=== PATIENT | male | born 1940 | race Caucasian/White ===

== ENCOUNTER 2017-10-03 15:01 | Inpatient (IN) ==
[2017-10-03] MEDS ORDERED: 0.9 % Sodium Chloride 1,000 ML IVC ONE ×2 (15:12→16:24)
--- NOTE | 2017-10-03 15:15 | Emergency Department Note ---
Disposition Clinical Impression: Serum ammonia increased, Acute kidney injury, Hyperkalemia, Infected wound, Elevated liver enzymes, Weakness Altered mental status Qualifiers: Altered mental status type: unspecified Qualified Code(s): R41.82 - Altered mental status, unspecified Disposition: Admitted As Inpatient Condition: Fair General Adult HPI - General Chief complaint: ED Neuro Symptoms/Deficit Stated complaint: AMS,lethargic Time Seen by Provider: 10/03/17 15:05 Source: patient, family Limitations: altered mental status Nursing Notes Reviewed: Yes Vital Signs Reviewed: Yes - History of Present Illness HPI Narrative: History of present illness 1513. Past medical history of previous TIAs as well as stage IV liver cancer and a nonhealing wound on the right foot presents for evaluation of altered mental status and weakness. Patient was being brought to the hospital for a podiatry appointment when his weakness did not allow him to get in and out of the car. Patient presents to the emergency department with a low blood pressure. Patient is able to look around and interacts somewhat but is not conversational. Family states that most of his care is at the [facility]. The patient's podiatry team is here. Family does not know advanced directives. Pain Scale: 0 - Related Data Home Medications Medication Instructions Recorded Confirmed Colchicine [Colcrys] 0.6 mg PO QID 05/23/16 10/03/17 Lisinopril 10 mg PO DAILY 05/23/16 10/03/17 Aspirin Enteric Coated [Aspirin EC] 81 mg PO DAILY 04/25/17 10/03/17 Baclofen [Lioresal] 5 mg PO TID 04/25/17 10/03/17 Carboxymethyl/Gly/Poly80/Pf 1 each OP DAILY 04/25/17 10/03/17 [Refresh Optive Advanced Drops] Cholecalciferol (D-3) [Vitamin D] 1,000 unit PO DAILY 04/25/17 10/03/17 Docusate Sodium 300 mg PO HS 04/25/17 10/03/17 metOLazone [Zaroxolyn] 5 mg PO MOTH 04/25/17 10/03/17 Collagenase Oint [Santyl] 1 appl TP BID 10/03/17 10/03/17 Furosemide [Lasix] 40 mg PO QID 10/03/17 10/03/17 Gabapentin [Neurontin] 600 mg PO BID 10/03/17 10/03/17 Insulin ASPART [NovoLOG] 60 unit SQ QAM 10/03/17 10/03/17 Insulin ASPART [NovoLOG] 100 unit SQ QPM 10/03/17 10/03/17 Insulin Glargine [Lantus] 118 unit SQ BID 10/03/17 10/03/17 Metoprolol [Lopressor] 12.5 mg PO BID 10/03/17 10/03/17 Multivit-Min/FA/Lycopen/Lutein [A 1 tab PO DAILY 10/03/17 10/03/17 Thru Z Select Multivit Tab] Nitroglycerin [Nitrostat] 0.4 mg SL Q5M PRN 10/03/17 10/03/17 Rosuvastatin Calcium [Crestor] 10 mg PO DAILY 10/03/17 10/03/17 Triamcinolone Acet 0.1% CRM 1 appl TP BID PRN 10/03/17 10/03/17 [Kenalog] Allergies Allergy/AdvReac Type Severity Reaction Status Date / Time shellfish derived Allergy Difficulty Verified 05/23/16 10:54 Breathing acetaminophen [From Vicodin] AdvReac Confusion Verified 05/23/16 10:54 hydrocodone [From Vicodin] AdvReac Confusion Verified 05/23/16 10:54 ibuprofen [From Motrin] AdvReac Gastrointestinal Verified 05/23/16 10:54 Upset tramadol AdvReac Confusion Verified 05/23/16 10:54 Limitations: ROS unobtainable due to patients medical condition Gastrointestinal: Reports: vomiting (x 2 episode). Denies: abdominal pain, nausea Genitourinary: Reports: other (recent treatment for UTI) Integumentary: Reports: other (infected heal ulcer) Neurological: Reports: weakness Past Medical History - Past Medical History Medical history: Reports: cancer, coronary artery disease, diabetes, hyperlipidemia, hypertension, other Surgical history: Reports: angioplasty/stent Psychiatric history: Reports: no psych history - Social History Smoking Status: Former smoker Smokeless Tobacco Status: No Alcohol use: Reports: none Drug use: Reports: none Physical Exam - General Limitations: altered mental status General appearance: alert - Head Head exam: atraumatic, normocephalic - Eye Eye exam: Present: normal appearance, PERRL - ENT ENT exam: normal exam, normal oropharynx, mucous membranes dry - Neck Neck exam: Present: normal inspection, full ROM - Chest Chest inspection: Present: normal inspection, symmetric chest wall rise. Absent : tenderness - Respiratory Respiratory exam: Present: normal lung sounds bilaterally. Absent: respiratory distress, wheezes - Cardiovascular Cardiovascular exam: Present: normal rhythm, tachycardia - Abdominal Exam Abdominal exam: Present: soft, Non-Tender - Extremities Exam Extremities exam: Present: other (Right posterior aspect of the heel has an ulcer with mild purulent material) - Back Exam Back exam: Present: normal inspection. Absent: CVA tenderness (R), CVA tenderness (L) - Neurological Exam Neurological exam: Present: alert. Absent: oriented X3 (oriented to name and hospital) - Psychiatric Psychiatric exam: Present: flat affect - Skin Skin exam: Present: other (extremity wound) Course - Reevaluation(s) Reevaluation #1: Patient with elevated white count and recent treatment for UTI. Concern for right heel wound. Patient's ammonia is also elevated. Patient has acute renal failure. Mild Hyperkalemia. Mild alterations to liver enzymes. Chest x-ray negative. CT head negative. Patient is a hospice patient that does not have advanced directives. wants continued treatment. Antibiotics given for Klebsiella wound infection that is sensitive to everything but ampicillin. - Consultations Consultation #1: Discussed with Dr. Higginbotham. Pt accepted. Vital Signs Temperature 97.2 F L 10/03/17 15:07 Pulse Rate 83 10/03/17 15:07 Respiratory Rate 14 10/03/17 15:07 Blood Pressure 81/48 10/03/17 15:07 O2 Sat by Pulse Oximetry 93 10/03/17 15:07 Temperature 97.2 F L 10/03/17 15:07 Pulse Rate 74 10/03/17 16:43 Respiratory Rate 16 10/03/17 16:43 Blood Pressure 95/57 10/03/17 16:43 O2 Sat by Pulse Oximetry 98 10/03/17 16:43 Oxygen Delivery Oxygen Delivery Room Air Medical Decision Making - Lab Data Result diagrams: 10/03/17 15:27 10/03/17 15:27 Lab Results 10/03/17 10/03/17 10/03/17 Range/Units 15:10 15:27 15:27 WBC 14.2 H (4.3-11.1) K/mcL RBC 4.16 L (4.19-5.50) M/mcL Hgb 13.1 (12.9-16.9) g/dL Hct 39.2 (37.5-50.1) % MCV 94.2 (83.0-100.0) fL MCH 31.5 (28.0-33.3) pg MCHC 33.4 (31.6-35.5) g/dL RDW 15.0 H (11.5-14.5) % Plt Count 226 (140-400) K/mcL MPV 10.7 (9.4-12.4) fL Immature Gran % 0.5 (0-4) % Seg Neutrophils % 82.7 % Lymphocytes % 11.2 % Monocytes % 4.6 % Eosinophils % 0.5 % Basophils % 0.5 % Neutrophils # 11.7 H (1.6-8.9) K/mcL Lymphocytes # 1.6 (0.6-4.6) K/mcL Monocytes # 0.7 (0.0-1.3) K/mcL Eosinophils # 0.1 (0.0-0.6) K/mcL Basophils # 0.1 (0.0-0.2) K/mcL ESR (0-10) mm/hr PT 12.6 H (9.4-12.1) Seconds INR 1.2 Sodium (136-145) mEq/L Potassium (3.5-4.5) mEq/L Chloride (98-109) mEq/L Carbon Dioxide (19-29) mEq/L BUN (8-26) mg/dL Creatinine (0.72-1.25) mg/dL Est GFR ( Amer) (> 60) Est GFR (Non-Af Amer) (> 60) BUN/Creatinine Ratio (6-26) Glucose (70-99) mg/dL POC Glucose 203 H (58-89) Calculated Osmolality (280-300) Calcium (8.6-10.8) mg/dL Total Bilirubin (0.2-1.2) mg/dL Direct Bilirubin (0.0-0.5) mg/dL Indirect Bilirubin (0.0-1.2) mg/dL AST (5-34) Units/L ALT (0-55) Units/L Alkaline Phosphatase (38-126) Units/L Ammonia (18-72) mcmol/L Troponin I (0-0.03) ng/mL C-Reactive Protein (Less than 5) mg/L Serum Total Protein (6.0-8.3) g/dL Albumin (3.5-5.0) g/dL Globulin (2.4-3.5) g/dL Albumin/Globulin Ratio (1.1-2.2) TSH (0.350-4.840) mcIU/mL Urine Color (Yellow) Urine Clarity (Clear) Urine pH (5.0-8.0) pH Units Ur Specific Rachel (1.010-1.025) Urine Protein (Neg-Trace) mg/dL Urine Glucose (UA) (Normal) mg/dL Urine Ketones (Negative) mg/dL Urine Blood (Negative) Urine Nitrite (Negative) Urine Bilirubin (Negative) Urine Urobilinogen (Normal) mg/dL Ur Leukocyte Esterase (Negative) Urine Microscopic RBC (0-3) per hpf Urine Microscopic WBC (0-3) per hpf Ur Squamous Epith Cells (None-Few) per lpf Urine Bacteria (None-Few) per hpf Hyaline Casts (None-Few) per lpf Ur Culture Indicated? (NO) Ethyl Alcohol (0-10) mg/dL 10/03/17 10/03/17 10/03/17 Range/Units 15:27 15:27 15:27 WBC (4.3-11.1) K/mcL RBC (4.19-5.50) M/mcL Hgb (12.9-16.9) g/dL Hct (37.5-50.1) % MCV (83.0-100.0) fL MCH (28.0-33.3) pg MCHC (31.6-35.5) g/dL RDW (11.5-14.5) % Plt Count (140-400) K/mcL MPV (9.4-12.4) fL Immature Gran % (0-4) % Seg Neutrophils % % Lymphocytes % % Monocytes % % Eosinophils % % Basophils % % Neutrophils # (1.6-8.9) K/mcL Lymphocytes # (0.6-4.6) K/mcL Monocytes # (0.0-1.3) K/mcL Eosinophils # (0.0-0.6) K/mcL Basophils # (0.0-0.2) K/mcL ESR (0-10) mm/hr PT (9.4-12.1) Seconds INR Sodium 136 (136-145) mEq/L Potassium 5.1 H (3.5-4.5) mEq/L Chloride 100 (98-109) mEq/L Carbon Dioxide 20 (19-29) mEq/L BUN 59 H (8-26) mg/dL Creatinine 3.72 H (0.72-1.25) mg/dL Est GFR ( Amer) 19 L (> 60) Est GFR (Non-Af Amer) 16 L (> 60) BUN/Creatinine Ratio 16 (6-26) Glucose 154 H (70-99) mg/dL POC Glucose (58-89) Calculated Osmolality 302 H (280-300) Calcium 10.3 (8.6-10.8) mg/dL Total Bilirubin 1.4 H (0.2-1.2) mg/dL Direct Bilirubin 0.7 H (0.0-0.5) mg/dL Indirect Bilirubin 0.7 (0.0-1.2) mg/dL AST 74 H (5-34) Units/L ALT 38 (0-55) Units/L Alkaline Phosphatase 138 H (38-126) Units/L Ammonia 111 H (18-72) mcmol/L Troponin I 0.03 (0-0.03) ng/mL C-Reactive Protein 21 H (Less than 5) mg/L Serum Total Protein 8.4 H (6.0-8.3) g/dL Albumin 3.3 L (3.5-5.0) g/dL Globulin 5.1 H (2.4-3.5) g/dL Albumin/Globulin Ratio 0.6 L (1.1-2.2) TSH 2.735 (0.350-4.840) mcIU/mL Urine Color (Yellow) Urine Clarity (Clear) Urine pH (5.0-8.0) pH Units Ur Specific Rachel (1.010-1.025) Urine Protein (Neg-Trace) mg/dL Urine Glucose (UA) (Normal) mg/dL Urine Ketones (Negative) mg/dL Urine Blood (Negative) Urine Nitrite (Negative) Urine Bilirubin (Negative) Urine Urobilinogen (Normal) mg/dL Ur Leukocyte Esterase (Negative) Urine Microscopic RBC (0-3) per hpf Urine Microscopic WBC (0-3) per hpf Ur Squamous Epith Cells (None-Few) per lpf Urine Bacteria (None-Few) per hpf Hyaline Casts (None-Few) per lpf Ur Culture Indicated? (NO) Ethyl Alcohol < 10 (0-10) mg/dL 10/03/17 10/03/17 Range/Units 15:27 15:55 WBC (4.3-11.1) K/mcL RBC (4.19-5.50) M/mcL Hgb (12.9-16.9) g/dL Hct (37.5-50.1) % MCV (83.0-100.0) fL MCH (28.0-33.3) pg MCHC (31.6-35.5) g/dL RDW (11.5-14.5) % Plt Count (140-400) K/mcL MPV (9.4-12.4) fL Immature Gran % (0-4) % Seg Neutrophils % % Lymphocytes % % Monocytes % % Eosinophils % % Basophils % % Neutrophils # (1.6-8.9) K/mcL Lymphocytes # (0.6-4.6) K/mcL Monocytes # (0.0-1.3) K/mcL Eosinophils # (0.0-0.6) K/mcL Basophils # (0.0-0.2) K/mcL ESR 74 H (0-10) mm/hr PT (9.4-12.1) Seconds INR Sodium (136-145) mEq/L Potassium (3.5-4.5) mEq/L Chloride (98-109) mEq/L Carbon Dioxide (19-29) mEq/L BUN (8-26) mg/dL Creatinine (0.72-1.25) mg/dL Est GFR ( Amer) (> 60) Est GFR (Non-Af Amer) (> 60) BUN/Creatinine Ratio (6-26) Glucose (70-99) mg/dL POC Glucose (58-89) Calculated Osmolality (280-300) Calcium (8.6-10.8) mg/dL Total Bilirubin (0.2-1.2) mg/dL Direct Bilirubin (0.0-0.5) mg/dL Indirect Bilirubin (0.0-1.2) mg/dL AST (5-34) Units/L ALT (0-55) Units/L Alkaline Phosphatase (38-126) Units/L Ammonia (18-72) mcmol/L Troponin I (0-0.03) ng/mL C-Reactive Protein (Less than 5) mg/L Serum Total Protein (6.0-8.3) g/dL Albumin (3.5-5.0) g/dL Globulin (2.4-3.5) g/dL Albumin/Globulin Ratio (1.1-2.2) TSH (0.350-4.840) mcIU/mL Urine Color Yellow (Yellow) Urine Clarity Clear (Clear) Urine pH 6.0 (5.0-8.0) pH Units Ur Specific Rachel 1.014 (1.010-1.025) Urine Protein Negative (Neg-Trace) mg/dL Urine Glucose (UA) 250 H (Normal) mg/dL Urine Ketones Negative (Negative) mg/dL Urine Blood Small H (Negative) Urine Nitrite Negative (Negative) Urine Bilirubin Negative (Negative) Urine Urobilinogen Normal (Normal) mg/dL Ur Leukocyte Esterase Negative (Negative) Urine Microscopic RBC 0-3 (0-3) per hpf Urine Microscopic WBC 0-3 (0-3) per hpf Ur Squamous Epith Cells Many H (None-Few) per lpf Urine Bacteria None Seen (None-Few) per hpf Hyaline Casts None Seen (None-Few) per lpf Ur Culture Indicated? NO (NO) Ethyl Alcohol (0-10) mg/dL Attestation Statement - Attestation Attestation: I examined this patient and my medical decision-making was reviewed with the Resident Physician. I agree with the documented findings, disposition and treatment plan as described except to the extent set forth below. Patient ED with weakness and altered mental status. states he became altered this afternoon. They are trying to get into the car to go to his wound care appointment that he was too weak and they had a lowered to the floor. Patient has stage IV liver cancer and is currently not undergoing any treatment for this. He sees the wound center for a wound on his heel. He has been vomiting a couple times a day. No fevers. On examination he is awake alert. Nonverbal. Looking around. Soft abdomen. Noted be hypotensive in the 80s. Plan. Sepsis workup. CT head. We will check ammonia level. Patient with elevated ammonia. Wound on heel. In all status improved. Blood pressure improved. 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 Admitted to medicine.
[2017-10-03 15:35] LABS: Basophils # 0.1 K/mcL (0.0-0.2); Basophils % 0.5 %; Eosinophils # 0.1 K/mcL (0.0-0.6); Eosinophils % 0.5 %; Hematocrit 39.2 % (37.5-50.1); Hemoglobin 13.1 g/dL (12.9-16.9); Immature Granulocytes % 0.5 % (0-4); Lymphocytes # 1.6 K/mcL (0.6-4.6); Lymphocytes % 11.2 %; Mean Corpuscular HGB Conc 33.4 g/dL (31.6-35.5); Mean Corpuscular Hemoglobin 31.5 pg (28.0-33.3); Mean Corpuscular Volume 94.2 fL (83.0-100.0); Mean Platelet Volume 10.7 fL (9.4-12.4); Monocytes # 0.7 K/mcL (0.0-1.3); Monocytes % 4.6 %; Neutrophils # 11.7 K/mcL (1.6-8.9); Platelet Count 226 K/mcL (140-400); Red Blood Count 4.16 M/mcL (4.19-5.50); Segmented Neutrophils % 82.7 %
[2017-10-03 15:42] LABS: INR 1.2; Prothrombin Time 12.6 Seconds (9.4-12.1)
[2017-10-03 15:52] LABS: Alanine Aminotransferase 38 Units/L (0-55); Albumin 3.3 g/dL (3.5-5.0); Albumin/Globulin Ratio 0.6 (1.1-2.2); Alkaline Phosphatase 138 Units/L (38-126); Aspartate Amino Transferase 74 Units/L (5-34); BUN/Creatinine Ratio 16 (6-26); Bilirubin,Direct 0.7 mg/dL (0.0-0.5); Bilirubin,Indirect 0.7 mg/dL (0.0-1.2); Bilirubin,Total 1.4 mg/dL (0.2-1.2); Blood Urea Nitrogen 59 mg/dL (8-26); Calcium 10.3 mg/dL (8.6-10.8); Carbon Dioxide 20 mEq/L (19-29); Chloride 100 mEq/L (98-109); Globulin 5.1 g/dL (2.4-3.5); Glucose 154 mg/dL (70-99); Osmolality,Calculated 302 (280-300); Potassium 5.1 mEq/L (3.5-4.5); Sodium 136 mEq/L (136-145); Total Protein 8.4 g/dL (6.0-8.3); eGFR For African Americans 19 (> 60); eGFR For Non-African Americans 16 (> 60)
[2017-10-03 15:53] LABS: Ethanol < 10 mg/dL (0-10)
[2017-10-03 16:05] LABS: Bilirubin,Urine Negative (Negative); Blood,Urine Small (Negative); Clarity,Urine Clear (Clear); Color,Urine Yellow (Yellow); Glucose,Urine (UA) 250 mg/dL (Normal); Ketones,Urine Negative (Negative); Leukocyte Esterase,Urine Negative (Negative); Nitrite,Urine Negative (Negative); Protein,Urine Negative (Neg-Trace); Specific Gravity,Urine 1.014 (1.010-1.025); Urobilinogen,Urine Normal (Normal)
[2017-10-03 16:13] LABS: Thyroid Stimulating Hormone 2.735 mcIU/mL (0.350-4.840)
[2017-10-03 16:16] LABS: Bacteria,Urine None Seen per hpf (None-Few); Hyaline Casts,Urine None Seen per lpf (None-Few); RBC,Urine 0-3 per hpf (0-3); Squamous Epithelial Cell,Urine Many per lpf (None-Few); WBC,Urine 0-3 per hpf (0-3)
[2017-10-03 16:26] LABS: C-Reactive Protein 21 mg/L (Less than 5)
[2017-10-03] MEDS ORDERED: Lactulose Oral Soln 20 GM/30 ML UDC PO ONE (16:51)
[2017-10-03] MEDS ORDERED: cefTRIAXone 1,000 MG in Water for inj. (sterile) 10 ML IVP ONE (18:00)
[2017-10-03] MEDS ORDERED: cefTRIAXone 1,000 MG in Water for inj. (sterile) 20 ML IVP ONE (18:00)
[2017-10-03] MEDS ORDERED: Naloxone 0.4 MG/ML INJ IVP PRN (20:05)
[2017-10-03] MEDS ORDERED: Ondansetron 4 MG/2 ML VIAL IVP PRN (20:05)
--- NOTE | 2017-10-03 20:56 | Internal Med History&Physical ---
<Sanjeev Cassidy - Last Filed: 10/03/17 20:52> Date of Encounter: 10/03/17 Time of Encounter: 20:52 Assessment and Plan (1) Altered mental status Current visit: Yes Status: Acute Continues to have altered mental status. Suspect this is due to elevation in ammonia of 111, patient has history of stage IV hepatic carcinoma. He was given 1 dose of lactulose in the ED and family reports mental status slightly improved briefly. However upon my assessment is continuing to have decreased LOC. 20 g lactulose rectal now; improvement in ammonia should improve patient's mental status. NPO, hold all oral medication while patient is lethargic, restart when MS improves Qualifiers: Altered mental status type: unspecified Qualified Code(s): R41.82 - Altered mental status, unspecified (2) Weakness Current visit: Yes Status: Acute Ongoing weakness, has not improved since admission this afternoon. has noticed a decline in functional capacity over the last several week, and he is much worse today. At baseline he is ambulatory, alert and able to somewhat participate in activities. He is not able to do so at this time. He has stage IV liver cancer, an elevated ammonia of 111, and a possible infection in his Rt foot that are contributing to his current clinical picture. Consult PT/OT,for further evaluation of functional capacity. He is currently getting hospice care at home. (3) TAY (acute kidney injury) Current visit: Yes Status: Acute Acute kidney injury secondary to dehydration. Reporting nausea and vomiting intermittently since Sunday. This decreased oral intake. No prior history of kidney disease. Start D5 0.45 at 125 mL per hour. Recheck serum creatinine in the morning (4) Dehydration Current visit: Yes Status: Acute Nausea and vomiting intermittently since Sunday. Unable to tolerate oral intake , decreased appetite. Now has TAY, start patient on D5 0.45 and 125 mL per hour. Recheck metabolic panel in the morning (5) Diabetic foot ulcer Current visit: Yes Status: Acute Chronic right diabetic foot ulcer. Was treated in May for Klebsiella infection of right foot. Will start patient on cefepime 1 g BID. Consult podiatry for further recommendations Qualifiers: Diabetic foot ulcer location: heel Diabetes mellitus type: type 2 Non- pressure ulcer stage: with fat layer exposed Qualified Code(s): E11.621 - Type 2 diabetes mellitus with foot ulcer; L97.402 - Non-pressure chronic ulcer of unspecified heel and midfoot with fat layer exposed (6) Serum ammonia increased Current visit: Yes Status: Acute (7) Hyperkalemia Current visit: Yes Status: Acute Also has hyperkalemia with potassium of 5.1. I suspect this is due to TAY and dehydration. Recheck metabolic panel in the am. (8) Elevated liver enzymes Current visit: Yes Status: Acute recheck LFT's in the morning (9) Diabetes Current visit: Yes Status: Acute LSSIC with AC/HS accuchecks. NPO. Qualifiers: Diabetes mellitus type: type 2 Diabetes mellitus complication status: with kidney complications Diabetes mellitus personal trainer insulin use: with senior living use Chronic kidney disease stage: unspecified stage Qualified Code(s): E11.22 - Type 2 diabetes mellitus with diabetic chronic kidney disease; Z79.4 - solar sales advisor (current) use of insulin; Z79.4 - solar sales advisor (current) use of insulin; Z79.4 - [facility] (current) use of insulin; Z79.4 - [facility] (current) use of insulin (10) Hepatocellular carcinoma Current visit: Yes Status: Acute Diagnosis approximately 18 months ago. Does not wish to participate in chemotherapy. Has not had follow-up evaluation since original diagnosis. (11) DVT prophylaxis Current visit: Yes Status: Acute Lovenox 40 mg subcutaneous daily Internal Medicine - H&P: HPI Chief complaint: AMS, WEAKNESS Admitted From: Home Plans for Post Hospital Care: Home History of present illness: Mr. Vieyra is a 77 year old male with PMH of multiple TIAs, stage IV liver cancer, CAD, DM, HLD and HTN. Patient reports he was diagnosed with stage IV liver cancer approximately 18 months ago, he has not wanting to take chemotherapy and is not had any additional follow-up since diagnosis. [facility] He presents today with altered mental status and weakness. Patient has a decreased level of consciousness at this time I am unable to obtain review of systems and/or history of present illness from him. Family is at bedside all information obtained from chart report and family. His reports that he began having alterations in mental status off and on over the last month. She reports that today it is much worse. She states that while out at a podiatry appointment today he was unable to get out of the car to make the appointment due to weakness. Also at this time is becoming increasingly confused. She also mentions that he has been having n/v intermittently since Sunday. She brought the patient to the emergency department further workup and evaluation. On the EGD is found to be hypotensive, had a decreased level of consciousness and while awake was confused. Workup revealed leukocytosis, acute kidney injury, and an ammonia of 111. CT of the head was negative for acute intracranial or melena, chest x-ray negative for cardiopulmonary disease. He is being admitted for further workup and evaluation. Past Med Surg Social Fam HX - Past Medical History Medical history: cancer, coronary artery disease, diabetes, hyperlipidemia, hypertension, other Psychiatric history: no psych history - Past Surgical History Surgical History: angioplasty/stent - Social History Smoking Status: Former smoker Smokeless Tobacco Status: No Alcohol use: none Drug use: none - Family History Father Living Status: Hx Family Cardiac Disorders: Yes Internal Medicine - H&P: Meds Colchicine [Colcrys] 0.6 mg PO QID 05/23/16 [History] Lisinopril 10 mg PO DAILY 05/23/16 [History] Aspirin Enteric Coated [Aspirin EC] 81 mg PO DAILY 04/25/17 [History] Baclofen [Lioresal] 5 mg PO TID 04/25/17 [History] Carboxymethyl/Gly/Poly80/Pf [Refresh Optive Advanced Drops] 1 each OP DAILY 03/07 [History] Cholecalciferol (D-3) [Vitamin D] 1,000 unit PO DAILY 04/25/17 [History] Docusate Sodium 300 mg PO HS 04/25/17 [History] metOLazone [Zaroxolyn] 5 mg PO MOTH 04/25/17 [History] Collagenase Oint [Santyl] 1 appl TP BID 10/03/17 [History] Furosemide [Lasix] 40 mg PO QID 10/03/17 [History] Gabapentin [Neurontin] 600 mg PO BID 10/03/17 [History] Insulin ASPART [NovoLOG] 60 unit SQ QAM 10/03/17 [History] Insulin ASPART [NovoLOG] 100 unit SQ QPM 10/03/17 [History] Insulin Glargine [Lantus] 118 unit SQ BID 10/03/17 [History] Metoprolol [Lopressor] 12.5 mg PO BID 10/03/17 [History] Multivit-Min/FA/Lycopen/Lutein [A Thru Z Select Multivit Tab] 1 tab PO DAILY [History] Nitroglycerin [Nitrostat] 0.4 mg SL Q5M PRN 10/03/17 [History] Oxycodone HCl 10 mg PO Q6H PRN 10/03/17 [History] Rosuvastatin Calcium [Crestor] 10 mg PO DAILY 10/03/17 [History] Triamcinolone Acet 0.1% CRM [Kenalog] 1 appl TP BID PRN 10/03/17 [History] 3 Allergy/AdvReac Type Severity Reaction Status Date / Time morphine Allergy Difficulty Verified 10/03/17 22:12 Breathing shellfish derived Allergy Difficulty Verified 05/23/16 10:54 Breathing acetaminophen [From Vicodin] AdvReac Confusion Verified 05/23/16 10:54 hydrocodone [From Vicodin] AdvReac Confusion Verified 05/23/16 10:54 ibuprofen [From Motrin] AdvReac Gastrointestinal Verified 05/23/16 10:54 Upset tramadol AdvReac Confusion Verified 05/23/16 10:54 All Systems PM: A 10-system review of systems was performed and is negative for pertinent findings except as documented above in the HPI. - Constitutional Constitutional: anorexia, fatigue, lethargy, weakness, no chills, no fever(s) - Cardiovascular Cardiovascular ROS IM: no chest pain, no diaphoresis, no dyspnea, no lightheadedness, no palpitations, no syncope - Respiratory Respiratory: no cough, no dyspnea, no wheezing, no excessive phlegm production - Gastrointestinal Gastrointestinal: early satiety, nausea, vomiting, no abdominal pain - Musculoskeletal Musculoskeletal ROS IM: muscle weakness - Integumentary Integumentary IM: skin ulcer (Rt foot) - Neurological Neurological ROS: abnormal speech, behavioral changes, confusion, tremor(s), weakness - Constitutional Vitals: Temp Pulse Resp BP Pulse Ox 98.3 F 78 16 134/81 95 10/03/17 18:58 10/03/17 18:58 10/03/17 18:58 10/03/17 18:58 10/03/17 18:58 General appearance: Present: A&O X 1, obese Exam: Ill appearing, lethargic male. - Head Head exam: Present: atraumatic, normocephalic - Neck Neck exam general surgery: Present: supple, trachea midline. Absent: lymphadenopathy - Respiratory Respiratory exam: Present: CTAB. Absent: accessory muscle use, rales, rhonchi, wheezes - Cardiovascular Cardiovascular exam: Present: RRR, +S1, +S2. Absent: diastolic murmur, gallop, rubs, systolic murmur - GI/Abdominal GI/Abdominal exam: Present: normal bowel sounds, soft, no peritoneal signs. Absent: distended, tenderness - Extremities Exam Extremities exam: Present: warm, radial pulses palpable and symmetrical. Absent : calf tenderness, cyanotic, pedal edema - Expanded Lower Extremities Exam Foot/Toe exam: Present: erythema, swelling 1 - Stage III pressure ulcer Rt foot Internal Med - H&P Results - Labs CBC & Chem 7: 10/03/17 15:27 10/03/17 15:27 - Diagnostic Studies Chest x-ray Status: image reviewed by me Additional comments: no acute cardiopulmonary process CT scan - head Status: image reviewed by me Additional comments: no acute intracranial abnormalities <Phill Granado - Last Filed: 10/04/17 04:59> Date of Encounter: 10/04/17 Internal Medicine - H&P: HPI History of present illness: Mr. Vieyra is a 77 year old male All Systems PM: A 10-system review of systems was performed and is negative for pertinent findings except as documented above in the HPI. - Constitutional Vitals: Temp Pulse Resp BP Pulse Ox 97.4 F L 67 16 136/79 97 10/04/17 03:29 10/04/17 03:29 10/04/17 03:29 10/04/17 03:29 10/04/17 03:29 Internal Med - H&P Results - Labs CBC & Chem 7: 10/03/17 15:27 10/03/17 15:27 - Attending Attestation I have personally performed a face to face evaluation on this patient. I have reviewed and agree with the care plan provided by NED Cassidy. History and Exam by me shows: Mr. Vieyra is a 77 year old male with PMH of multiple TIAs, stage IV liver cancer, CAD, DM, HLD and HTN who is under home hospice care for his liver cancer was brought into ER by family stating that he became more lethargic and obtunded today. Gen : Pt is so somnolent.. responding to verbal stimuli only. not following any commands Chest: Diminished BS b/l Heart : S1 S2 + RRR Ext; Stage 3 pressure ulcer over Rt heel a/p 1. Acute hepatic encephalopathy 2. Stage IV Hepato cellular cancer started him on PA Lactulose now Strict NPO until pt becomes fully awake 3. Chronic non healing Rt heel ulcer As per the family supposedly he has to go for wound debridement by Dr. Wiggins so will consult grails web application developer in [place] Also placed him on empirical abx Family still want to continue home hospice care..
[2017-10-03] MEDS ORDERED: *HR* Morphine 2 MG/ML SYRINGE IVP PRN (21:08)
[2017-10-03] MEDS ORDERED: Dextrose Gel 15 GM PO PRN ×2 (21:28)
[2017-10-03] MEDS ORDERED: D5% in Water 1,000 ML IVC PRN (21:28)
[2017-10-03] MEDS ORDERED: *HR* Dextrose 50 % in Water (Syg) 50 ML SYRINGE IVP PRN (21:28)
[2017-10-03] MEDS ORDERED: Insulin LISPRO 300 UNITS/3 ML VIAL SQ SCH (21:30)
[2017-10-03] MEDS: D5% in 0.45% NACL 1,000 ML IVC SCH (21:38)
[2017-10-04] MEDS ORDERED: Cefepime HCl 1,000 MG in Water for inj. (sterile) 10 ML IVP SCH (06:00)
[2017-10-04] MEDS ORDERED: *HR* Enoxaparin 40 MG/0.4 ML SYRINGE SQ SCH (06:00)
[2017-10-04 06:49] LABS: INR 1.1; Prothrombin Time 12.2 Seconds (9.4-12.1)
[2017-10-04 06:54] LABS: Albumin 2.8 g/dL (3.5-5.0); Albumin/Globulin Ratio 0.6 (1.1-2.2); Calcium 9.2 mg/dL (8.6-10.8); Globulin 4.4 g/dL (2.4-3.5); Magnesium 2.2 mg/dL (1.6-2.6); Total Protein 7.2 g/dL (6.0-8.3)
[2017-10-04 06:59] LABS: Basophils # 0.1 K/mcL (0.0-0.2); Basophils % 0.7 %; Eosinophils # 0.3 K/mcL (0.0-0.6); Eosinophils % 2.6 %; Hematocrit 36.4 % (37.5-50.1); Hemoglobin 12.5 g/dL (12.9-16.9); Immature Granulocytes % 0.8 % (0-4); Lymphocytes # 2.8 K/mcL (0.6-4.6); Lymphocytes % 28.3 %; Mean Corpuscular HGB Conc 34.3 g/dL (31.6-35.5); Mean Corpuscular Hemoglobin 32.2 pg (28.0-33.3); Mean Corpuscular Volume 93.8 fL (83.0-100.0); Mean Platelet Volume 10.6 fL (9.4-12.4); Monocytes # 0.7 K/mcL (0.0-1.3); Monocytes % 7.1 %; Neutrophils # 5.9 K/mcL (1.6-8.9); Platelet Count 136 K/mcL (140-400); Red Blood Count 3.88 M/mcL (4.19-5.50); Red Cell Distribution Width 15.2 % (11.5-14.5); Segmented Neutrophils % 60.5 %
[2017-10-04] MEDS: Insulin LISPRO 300 UNITS/3 ML VIAL SQ SCH ×3 (07:52→16:42)
--- NOTE | 2017-10-04 11:56 | Discharge Summary ---
Date of Encounter: 10/04/17 Time of Encounter: 11:39 - Discharge Diagnosis (1) Acute hepatic encephalopathy Priority: Primary Status: Acute (2) TAY (acute kidney injury) Priority: Secondary Status: Acute (3) Dehydration Priority: Secondary Status: Acute (4) Diabetes Priority: Secondary Status: Acute Qualifiers: Diabetes mellitus type: type 2 Diabetes mellitus complication status: with kidney complications Diabetes mellitus complication detail: with chronic kidney disease Diabetes mellitus [facility] insulin use: with [facility] use Chronic kidney disease stage: stage 3 (moderate) Qualified Code(s): E11.22 - Type 2 diabetes mellitus with diabetic chronic kidney disease; N18.3 - Chronic kidney disease, stage 3 (moderate); N18.3 - Chronic kidney disease, stage 3 ( moderate); Z79.4 - nursing home (current) use of insulin; Z79.4 - nursing home ( current) use of insulin; Z79.4 - nursing home (current) use of insulin; Z79.4 - nursing home (current) use of insulin (5) Diabetic foot ulcer Priority: Secondary Status: Acute Qualifiers: Diabetic foot ulcer location: heel Diabetes mellitus type: type 2 Laterality: right Non-pressure ulcer stage: with fat layer exposed Qualified Code(s): E11.621 - Type 2 diabetes mellitus with foot ulcer; L97.412 - Non-pressure chronic ulcer of right heel and midfoot with fat layer exposed; L97.412 - Non-pressure chronic ulcer of right heel and midfoot with fat layer exposed; L97.412 - Non-pressure chronic ulcer of right heel and midfoot with fat layer exposed; L97.412 - Non-pressure chronic ulcer of right heel and midfoot with fat layer exposed (6) Hepatocellular carcinoma Priority: Secondary Status: Acute (7) Weakness Priority: Secondary Status: Acute - Discharge Medications Prescriptions: Collagenase Oint [Santyl] 30 appl TP BID #1 tube Lactulose 20 gm PO TID #600 mls Home Medications: Colchicine [Colcrys] 0.6 mg PO QID 05/23/16 [History] Aspirin Enteric Coated [Aspirin EC] 81 mg PO DAILY 04/25/17 [History] Baclofen [Lioresal] 5 mg PO TID 04/25/17 [History] Carboxymethyl/Gly/Poly80/Pf [Refresh Optive Advanced Drops] 1 each OP DAILY 03/07 [History] Cholecalciferol (D-3) [Vitamin D] 1,000 unit PO DAILY 04/25/17 [History] Docusate Sodium 300 mg PO HS 04/25/17 [History] Collagenase Oint [Santyl] 1 appl TP BID 10/03/17 [History] Gabapentin [Neurontin] 600 mg PO BID 10/03/17 [History] Insulin ASPART [NovoLOG] 60 unit SQ QAM 10/03/17 [History] Insulin ASPART [NovoLOG] 100 unit SQ QPM 10/03/17 [History] Insulin Glargine [Lantus] 118 unit SQ BID 10/03/17 [History] Metoprolol [Lopressor] 12.5 mg PO BID 10/03/17 [History] Multivit-Min/FA/Lycopen/Lutein [A Thru Z Select Multivit Tab] 1 tab PO DAILY [History] Nitroglycerin [Nitrostat] 0.4 mg SL Q5M PRN 10/03/17 [History] Oxycodone HCl 10 mg PO Q6H PRN 10/03/17 [History] Rosuvastatin Calcium [Crestor] 10 mg PO DAILY 10/03/17 [History] Triamcinolone Acet 0.1% CRM [Kenalog] 1 appl TP BID PRN 10/03/17 [History] Collagenase Oint [Santyl] 30 appl TP BID #1 tube 10/04/17 [Rx] Lactulose 20 gm PO TID #600 mls 10/04/17 [Rx] Allergies/Adverse Reactions: 3 Allergy/AdvReac Type Severity Reaction Status Date / Time morphine Allergy Difficulty Verified 10/03/17 22:12 Breathing shellfish derived Allergy Difficulty Verified 05/23/16 10:54 Breathing acetaminophen [From Vicodin] AdvReac Confusion Verified 05/23/16 10:54 hydrocodone [From Vicodin] AdvReac Confusion Verified 05/23/16 10:54 ibuprofen [From Motrin] AdvReac Gastrointestinal Verified 05/23/16 10:54 Upset tramadol AdvReac Confusion Verified 05/23/16 10:54 Date of admission: 10/03/17 20:05 [facility] care physician: [facility] Consults: 10/03/17 20:47 Consult to Podiatry [CONS] Routine Consulting Provider: Podiatry [facility] Reason for Consult: Rt foot ulcer; h/o klebsiella in wound Call Completed: No Discharging clinician: Don Springer Anticipated date of discharge: 10/04/17 - Patient Status Disposition: Hospice - Home Condition: Good Functional capacity at discharge: uses cane/walker Overall status at discharge: patient is progressing back to baseline - Ambulatory Orders Ambulatory Orders: Basic Metabolic Panel [CHEM] Time Frame: 1 Week, Facility: [facility], Location: Lab - Discharge Instructions Instructions: Diabetic Foot Care (DC) Follow Up With: Hernesto Wiggins DPM [Partnered Physician] - 10/10/17 10:15 am (10/10/17 10:15 A[facility] WOUND CARE CLINIC Also follow up 10/24/17 at 2:00 p.m. wound care [phone]) [facility],PCP [Primary Care Provider] - 10/10/17 2:45 pm ( ) - Diet and Activity Activity: increase activity as tolerated Diet: low fat, low cholesterol, low salt diet Hospital course: Mr. Vieyra is a 77 year old male patient with history of liver cancer who was brought in by family with complaints of altered mental status. He was found to be having acute hepatic encephalopathy with an elevated ammonia level. He was treated with lactulose with improvement in his symptoms. Patient's CODE STATUS is DNR comfort care and he wished to be at home rather than to continue prolonged care in the hospital. He did have acute kidney injury on presentation with a creatinine of 3.7 which improved to 3.1 by the next day. Most likely this is due to dehydration as patient was not eating much due to altered mental status. I discussed the patient's condition and goals of care and the patient wished to go home rather than stay in the hospital if possible. Given his terminal condition, I thought this was appropriate as he is already on hospice and is DNR comfort care. He has had good urine output and his urine appears clear. He is encouraged to drink more fluids to help with his kidney injury. Patient has also been dealing with a chronic right foot heel decubitus ulcer which was evaluated by podiatry. It appears to be stable without any signs of infection. He does not require antibiotics for this. The patient does have uncontrolled diabetes and is on insulin at home. At this time , patient is clinically stable for discharge although he does have acute medical issues that will need to be followed as outpatient if he wishes to continue following for medical care. I am providing him with a prescription to get his basic panel checked in 3-4 days to make sure that his renal function continues to improve. Patient is on Lasix 4 times a day, lisinopril and Zaroxolyn occasionally. He is advised to hold his medications for now until his kidney function improves. He will also be discharged on lactulose to help prevent further episodes of hepatic encephalopathy. - Time Spent with Patient Total time spent providing and/or coordinating discharge services: Greater than 30 minutes (32 min) - Constitutional Vitals: Temp Pulse Resp BP Pulse Ox 98.3 F 81 14 128/87 99 10/04/17 11:19 10/04/17 11:19 10/04/17 11:19 10/04/17 11:19 10/04/17 11:19 General appearance: Present: A&O X 1, obese - Respiratory Respiratory exam: Present: CTAB. Absent: accessory muscle use, rales, rhonchi, wheezes - Cardiovascular Cardiovascular exam: Present: RRR, +S1, +S2. Absent: diastolic murmur, gallop, rubs, systolic murmur - GI/Abdominal GI/Abdominal exam: Present: normal bowel sounds, soft, no peritoneal signs. Absent: distended, tenderness - Extremities Exam Extremities exam: Present: warm, radial pulses palpable and symmetrical. Absent : calf tenderness, cyanotic, pedal edema Additional comments: Right heel ulcer. Appears clean. No discharge noted. - Neurological Exam Neurological exam: Present: alert, oriented X3, no focal deficits. Absent: facial droop, speech deficit - Skin Skin exam: Present: dry, intact
[2017-10-04] MEDS: D5% in 0.45% NACL 1,000 ML IVC SCH (12:05)
--- NOTE | 2017-10-04 14:06 | Podiatry Consult Note ---
Date of Encounter: 10/04/17 Time of Encounter: 12:00 Assessment and Plan (1) Diabetic foot ulcer Current visit: Yes Status: Acute assessment: Full thickness diabetic ulceration of right heel Status: Chronic Plan: Minimal clinical suspicion of infection to wound Will obtain xray to assess for any bony abnormality Wound assessed, measurements obtained, cleansed with saline, maxsorb AG applied , 4x4 and bulk dressing Patient to offload at all times. Patient to have on heel protectors at all times Patient was scheduled to be seen in wound care clinic with on 10/03- missed appointment- please reschedule for next sunday Will start application of Santyl BID with dry bulk dressing to provide debridement of fibrous and eschar tissue May be discharged after xray and followed as outpatient if medically stable and xray shoes no concern of bony abnormality Patient to contact clinic or if symptoms worsen, wound appearance worsens or if infection is suspected Return to ED if symptoms return or fevers, chills nv or flu like symptoms Qualifiers: Diabetic foot ulcer location: heel Diabetes mellitus type: type 2 Non- pressure ulcer stage: with fat layer exposed Qualified Code(s): E11.621 - Type 2 diabetes mellitus with foot ulcer; L97.402 - Non-pressure chronic ulcer of unspecified heel and midfoot with fat layer exposed History of Present Illness HPI: Mr. Vieyra is a 77 year old male who we have been consulted on regarding a right heel ulceration. Patient was admitted to [facility] for AMS- WBC was elevated on admission 14.3. Patient was started on IV antibiotics. Ammonia level was noted to be elevated. Patient has a medical hx significant for DM, HTN, hepatpcelluar carcinoma and pancreatic cancer. Patient is a patient of in wound care center- he is currently being followed for a chronic ulceration of the right heel. Patient states the ulcer has improved in appearance since starting with . Patient states at last appointment [address] wiggins cut down the skin. Patient states he wears his heel protectors at all times at home and uses the dressing supplies ordered for him. Patient denies any increased redness, pain or drainage to foot. Denies any fevers or chills at this time. at bedside. Patient is currently awake alert and oriented and in no acute distress. Past Med Surg Social Fam HX - Past Medical History Medical history: cancer, coronary artery disease, diabetes, hyperlipidemia, hypertension, other Psychiatric history: no psych history - Past Surgical History Surgical History: angioplasty/stent - Social History Smoking Status: Former smoker Smokeless Tobacco Status: No Alcohol use: none Drug use: none - Family History Father Living Status: Hx Family Cardiac Disorders: Yes Medications and Allergies Colchicine [Colcrys] 0.6 mg PO QID 05/23/16 [History] Lisinopril 10 mg PO DAILY 05/23/16 [History] Aspirin Enteric Coated [Aspirin EC] 81 mg PO DAILY 04/25/17 [History] Baclofen [Lioresal] 5 mg PO TID 04/25/17 [History] Carboxymethyl/Gly/Poly80/Pf [Refresh Optive Advanced Drops] 1 each OP DAILY 03/07 [History] Cholecalciferol (D-3) [Vitamin D] 1,000 unit PO DAILY 04/25/17 [History] Docusate Sodium 300 mg PO HS 04/25/17 [History] metOLazone [Zaroxolyn] 5 mg PO MOTH 04/25/17 [History] Collagenase Oint [Santyl] 1 appl TP BID 10/03/17 [History] Furosemide [Lasix] 40 mg PO QID 10/03/17 [History] Gabapentin [Neurontin] 600 mg PO BID 10/03/17 [History] Insulin ASPART [NovoLOG] 60 unit SQ QAM 10/03/17 [History] Insulin ASPART [NovoLOG] 100 unit SQ QPM 10/03/17 [History] Insulin Glargine [Lantus] 118 unit SQ BID 10/03/17 [History] Metoprolol [Lopressor] 12.5 mg PO BID 10/03/17 [History] Multivit-Min/FA/Lycopen/Lutein [A Thru Z Select Multivit Tab] 1 tab PO DAILY [History] Nitroglycerin [Nitrostat] 0.4 mg SL Q5M PRN 10/03/17 [History] Oxycodone HCl 10 mg PO Q6H PRN 10/03/17 [History] Rosuvastatin Calcium [Crestor] 10 mg PO DAILY 10/03/17 [History] Triamcinolone Acet 0.1% CRM [Kenalog] 1 appl TP BID PRN 10/03/17 [History] Lactulose 20 gm PO TID #600 mls 10/04/17 [Rx] 3 Allergy/AdvReac Type Severity Reaction Status Date / Time morphine Allergy Difficulty Verified 10/03/17 22:12 Breathing shellfish derived Allergy Difficulty Verified 05/23/16 10:54 Breathing acetaminophen [From Vicodin] AdvReac Confusion Verified 05/23/16 10:54 hydrocodone [From Vicodin] AdvReac Confusion Verified 05/23/16 10:54 ibuprofen [From Motrin] AdvReac Gastrointestinal Verified 05/23/16 10:54 Upset tramadol AdvReac Confusion Verified 05/23/16 10:54 All Systems Reviewed: A 10-system review of systems was performed and is negative for pertinent findings except as documented above in the HPI. Physical Exam - Constitutional Vitals: Temp Pulse Resp BP Pulse Ox 98.3 F 81 14 128/87 99 10/04/17 11:19 10/04/17 11:19 10/04/17 11:19 10/04/17 11:19 10/04/17 11:19 Exam: Awake alert and oriented Full thickness diabetic ulceration of right heel Status: Chronic Right heel wound 1.5cmx1.5cmx0.5cm depth- Yellow fibrous base 10% eschar tissue Wound border surrounded by hyperkeratotic skin No edema, erythema, warmth, tenderness or drainage No ascending cellulitis No odor No fluctuance noted - no concern of abscess Minimal clinical suspicion of infection to ulceration Pulses palpable 1+/4 bilaterally DP/PT Cap refill <3 seconds Sensation intact to moderate touch No limited ROM No calf pain with manual compression Results - Labs Result Diagrams: 10/04/17 06:29 10/04/17 06:29 Labs: Abnormal lab results RBC 3.88 M/mcL (4.19-5.50) L 10/04/17 06:29 Hgb 12.5 g/dL (12.9-16.9) L 10/04/17 06:29 Hct 36.4 % (37.5-50.1) L 10/04/17 06:29 RDW 15.2 % (11.5-14.5) H 10/04/17 06:29 Plt Count 136 K/mcL (140-400) L 10/04/17 06:29 ESR 74 mm/hr (0-10) H 10/03/17 15:27 PT 12.2 Seconds (9.4-12.1) H 10/04/17 06:29 Potassium 5.0 mEq/L (3.5-4.5) H 10/04/17 06:29 BUN 57 mg/dL (8-26) H 10/04/17 06:29 Creatinine 3.13 mg/dL (0.72-1.25) H 10/04/17 06:29 Est GFR ( Amer) 24 (> 60) L 10/04/17 06:29 Est GFR (Non-Af Amer) 19 (> 60) L 10/04/17 06:29 POC Glucose 203 (58-89) H 10/03/17 15:10 Calculated Osmolality 305 (280-300) H 10/04/17 06:29 Phosphorus 5.0 mg/dL (2.3-4.7) H 10/04/17 06:29 Direct Bilirubin 0.7 mg/dL (0.0-0.5) H 10/03/17 15:27 AST 55 Units/L (5-34) H 10/04/17 06:29 C-Reactive Protein 21 mg/L (Less than 5) H 10/03/17 15:27 Albumin 2.8 g/dL (3.5-5.0) L 10/04/17 06:29 Globulin 4.4 g/dL (2.4-3.5) H 10/04/17 06:29 Albumin/Globulin Ratio 0.6 (1.1-2.2) L 10/04/17 06:29 Urine Glucose (UA) 250 mg/dL (Normal) H 10/03/17 15:55 Urine Blood Small (Negative) H 10/03/17 15:55 Ur Squamous Epith Cells Many per lpf (None-Few) H 10/03/17 15:55 H & H 10/04/17 Range/Units 06:29 Hgb 12.5 L (12.9-16.9) g/dL Hct 36.4 L (37.5-50.1) % All other labs normal. Consult Discharge Plan - Plan Referrals: Hernesto Wiggins DPM [Partnered Physician] - 10/24/17 2:00 pm (wound care [phone]) [place],PCP [Primary Care Provider] - 10/10/17 2:45 pm ( ) Prescriptions: Lactulose 20 gm PO TID #600 mls
[2017-10-04 15:55] VITALS: BP 120/74
--- NOTE | 2017-10-04 16:28 | Physician Discharge Referral ---
Home Health/Hosp Referral Info Transfer to: Hospice Provider in Charge Post Discharge: [employer] - Diagnosis (1) Acute hepatic encephalopathy Priority: Primary Status: Acute (2) TAY (acute kidney injury) Priority: Secondary Status: Acute (3) Dehydration Priority: Secondary Status: Acute (4) Diabetes Priority: Secondary Status: Acute (5) Diabetic foot ulcer Priority: Secondary Status: Acute (6) Hepatocellular carcinoma Priority: Secondary Status: Acute (7) Weakness Priority: Secondary Status: Acute - Respiratory Orders Smoking Cessation: Smoking cessation has been advised. For more information, call the [place] Tobacco Quit Line at 6-532-PUQW-NOW. - Diet/Nutrition Diet/Nutrition Orders: Cardiac - Activity Activity Orders: Walker - Services Needed Following services are medically necessary services: Nursing, Home Health Aide - Transfer Medications Prescriptions: Collagenase Oint [Santyl] 30 appl TP BID #1 tube Lactulose 20 gm PO TID #600 mls Home Medications: Colchicine [Colcrys] 0.6 mg PO QID 05/23/16 [History] Lisinopril 10 mg PO DAILY 05/23/16 [History] Aspirin Enteric Coated [Aspirin EC] 81 mg PO DAILY 04/25/17 [History] Baclofen [Lioresal] 5 mg PO TID 04/25/17 [History] Carboxymethyl/Gly/Poly80/Pf [Refresh Optive Advanced Drops] 1 each OP DAILY 03/07 [History] Cholecalciferol (D-3) [Vitamin D] 1,000 unit PO DAILY 04/25/17 [History] Docusate Sodium 300 mg PO HS 04/25/17 [History] metOLazone [Zaroxolyn] 5 mg PO MOTH 04/25/17 [History] Collagenase Oint [Santyl] 1 appl TP BID 10/03/17 [History] Furosemide [Lasix] 40 mg PO QID 10/03/17 [History] Gabapentin [Neurontin] 600 mg PO BID 10/03/17 [History] Insulin ASPART [NovoLOG] 60 unit SQ QAM 10/03/17 [History] Insulin ASPART [NovoLOG] 100 unit SQ QPM 10/03/17 [History] Insulin Glargine [Lantus] 118 unit SQ BID 10/03/17 [History] Metoprolol [Lopressor] 12.5 mg PO BID 10/03/17 [History] Multivit-Min/FA/Lycopen/Lutein [A Thru Z Select Multivit Tab] 1 tab PO DAILY [History] Nitroglycerin [Nitrostat] 0.4 mg SL Q5M PRN 10/03/17 [History] Oxycodone HCl 10 mg PO Q6H PRN 10/03/17 [History] Rosuvastatin Calcium [Crestor] 10 mg PO DAILY 10/03/17 [History] Triamcinolone Acet 0.1% CRM [Kenalog] 1 appl TP BID PRN 10/03/17 [History] Collagenase Oint [Santyl] 30 appl TP BID #1 tube 10/04/17 [Rx] Lactulose 20 gm PO TID #600 mls 10/04/17 [Rx] Allergies/Adverse Reactions: 3 Allergy/AdvReac Type Severity Reaction Status Date / Time morphine Allergy Difficulty Verified 10/03/17 22:12 Breathing shellfish derived Allergy Difficulty Verified 05/23/16 10:54 Breathing acetaminophen [From Vicodin] AdvReac Confusion Verified 05/23/16 10:54 hydrocodone [From Vicodin] AdvReac Confusion Verified 05/23/16 10:54 ibuprofen [From Motrin] AdvReac Gastrointestinal Verified 05/23/16 10:54 Upset tramadol AdvReac Confusion Verified 05/23/16 10:54 Certification: Further, I certify that my clinical findings support that this patient is homebound (i.e. absences from home require considerable and taxing effort and are for medical reasons or anglican services or infrequently or short duration when for other reasons) because: Homebound Reason: Patient requires assistance of a person or device to safely leave home (Patient with liver cancer on hospice) Attestation: My signature below is to certify that this patient is under my care and that I, or nurse practitioner, or a physician's glass ribbon machine operator assistant working with me, has a face-to -face encounter with this patient.
--- NOTE | 2017-10-04 16:38 | Electrocardiograph Report ---
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
[2017-10-04] MEDS ORDERED: Lactulose Oral Soln 20 GM/30 ML UDC RC SCH (20:11)
== END 2017-10-04 18:36 | disposition hospice, home (50) | DRG 442 ==
LOC: 2ANU 15:01 → EMEROO 15:01 → 2ANU 18:45 → SUATTDRO 20:05
PROVIDERS: ADMIT Family Medicine; ATTEND Family Medicine

== ENCOUNTER 2017-10-10 19:53 | Inpatient (IN) ==
--- NOTE | 2017-10-10 19:56 | Emergency Department Note ---
Disposition Clinical Impression: Liver mass, Pancreatic cancer, Acute hepatic encephalopathy Diabetic foot ulcer Qualifiers: Diabetic foot ulcer location: heel Diabetes mellitus type: type 2 Laterality: right Non-pressure ulcer stage: with fat layer exposed Qualified Code(s): E11.621 - Type 2 diabetes mellitus with foot ulcer Disposition: Admitted As Inpatient Condition: Fair Altered Mental Status HPI - General Chief Complaint: ED Altered Mental Status Stated Complaint: AMS Time Seen by Provider: 10/10/17 19:55 Source: patient, EMS Mode of arrival: EMS Limitations: no limitations Nursing Notes Reviewed: Yes Vital Signs Reviewed: Yes - History of Present Illness HPI Narrative: Patient presents to the ED via EMS as a transfer from the NH for increasing altered mental status and possible pneumonia. Patient has a history of liver cancer and had an ammonia level XCI, potassium 6.1, creatinine 2.33, blood glucose 404. Also has a history of pancreatic cancer. He was just discharged from this facility on 10/04 and went back to the NH today for his checkup complaining of feeling very fatigued and sleepy. He denies any pain, shortness of breath, abdominal pain, nausea, vomiting or diarrhea. He does have a chronic rash or ulcer to his right heel. The wound care is following. Patient was sent over for hyperkalemia, hepatic encephalopathy, stage IV hepatocellular carcinoma and apparently is now coming in home hospice. - Related Data Home Medications Medication Instructions Recorded Confirmed Colchicine [Colcrys] 0.6 mg PO DAILY 05/23/16 10/10/17 Baclofen [Lioresal] 5 mg PO TID PRN 04/25/17 10/10/17 Cholecalciferol (D-3) [Vitamin D] 1,000 unit PO DAILY 04/25/17 10/10/17 Docusate Sodium 300 mg PO HS 04/25/17 10/10/17 Collagenase Oint [Santyl] 1 appl TP BID 10/03/17 10/10/17 Gabapentin [Neurontin] 600 mg PO BID 10/03/17 10/10/17 Insulin ASPART [NovoLOG] 60 unit SQ QAM 10/03/17 10/10/17 Insulin ASPART [NovoLOG] 100 unit SQ QPM 10/03/17 10/10/17 Insulin Glargine [Lantus] 118 unit SQ BID 10/03/17 10/10/17 Metoprolol [Lopressor] 12.5 mg PO BID 10/03/17 10/10/17 Nitroglycerin [Nitrostat] 0.4 mg SL Q5M PRN 10/03/17 10/10/17 Triamcinolone Acet 0.1% CRM 1 appl TP BID PRN 10/03/17 10/10/17 [Kenalog] Clopidogrel [Plavix] 75 mg PO DAILY 10/10/17 10/10/17 Febuxostat [Uloric] 40 mg PO DAILY 10/10/17 10/10/17 Furosemide [Lasix] 40 mg PO QID 10/10/17 10/10/17 Gentamicin Oint [Garamycin] 1 appl TP BID 10/10/17 10/10/17 Lisinopril [Zestril] 10 mg PO DAILY 10/10/17 10/10/17 Loratadine [Claritin] 10 mg PO DAILY PRN 10/10/17 10/10/17 Ondansetron [Zofran] 8 mg PO TID PRN 10/10/17 10/10/17 Sennosides [Senna] 8.6 mg PO BID 10/10/17 10/10/17 Spironolactone [Aldactone] 25 mg PO DAILY 10/10/17 10/10/17 Sucralfate [Carafate] 1 gm PO TID 10/10/17 10/10/17 metOLazone [Zaroxolyn] 5 mg PO MOTH 10/10/17 10/10/17 Allergies Allergy/AdvReac Type Severity Reaction Status Date / Time morphine Allergy Difficulty Verified 10/03/17 22:12 Breathing shellfish derived Allergy Difficulty Verified 05/23/16 10:54 Breathing acetaminophen [From Vicodin] AdvReac Confusion Verified 10/11/17 01:13 atorvastatin [From Lipitor] AdvReac Muscle Pain Verified 10/11/17 01:13 hydrocodone [From Vicodin] AdvReac Confusion Verified 10/11/17 01:13 ibuprofen [From Motrin] AdvReac Gastrointestinal Verified 10/11/17 01:13 Upset tramadol AdvReac Confusion Verified 10/11/17 01:13 All systems ED: reviewed and negative except as stated. Constitutional: Denies: fever Cardiovascular: Denies: chest pain Respiratory: Denies: dyspnea Gastrointestinal: Denies: abdominal pain, vomiting Neurological: Reports: as per HPI. Denies: headache Past Medical History - Past Medical History Attestation: Yes The following information was validated with the patient. Source: patient, old records reviewed Medical history: Reports: cancer, coronary artery disease, diabetes, hyperlipidemia, hypertension, other Surgical history: Reports: angioplasty/stent Psychiatric history: Reports: no psych history - Social History Smoking Status: Former smoker Smokeless Tobacco Status: No Alcohol use: Reports: none Drug use: Reports: none Physical Exam - General Limitations: no limitations General appearance: alert, in no apparent distress, obese - Head Head exam: atraumatic, normocephalic, normal inspection - Eye Eye exam: Present: normal appearance, PERRL, EOMI - ENT ENT exam: mucous membranes dry - Respiratory Respiratory exam: Present: normal lung sounds bilaterally - Cardiovascular Cardiovascular exam: Present: regular rate, normal rhythm, normal heart sounds - Abdominal Exam Abdominal exam: Present: soft, Non-Tender, other (obese) - Extremities Exam Extremities exam: Present: other (RLE pressure ulcer on heel, dressed and placed back in boot ) - Neurological Exam Neurological exam: Present: alert, oriented X3, CN II-XII intact - Psychiatric Psychiatric exam: Present: flat affect - Skin Skin exam: Present: warm, dry, intact, normal color Course Course Narrative: Patient presenting with suspected hepatic encephalopathy. Patient slightly hyperkalemic. I do think this is from his hyperglycemia. We will give him insulin and fluids to bring down his glucose. This will also treat his high potassium. We will recheck a BMP and admitted to the hospitalist service. Potassium back down to normal, no EKG changes Vital Signs Temperature 98.7 F 10/10/17 19:55 Pulse Rate 78 10/10/17 19:55 Respiratory Rate 20 10/10/17 19:55 Blood Pressure 165/68 10/10/17 19:55 O2 Sat by Pulse Oximetry 97 10/10/17 19:55 Temperature 98.4 F 10/11/17 05:13 Pulse Rate 78 10/11/17 05:13 Respiratory Rate 18 10/11/17 05:13 Blood Pressure 168/80 10/11/17 05:13 O2 Sat by Pulse Oximetry 97 10/11/17 05:13 Oxygen Delivery Oxygen Delivery Room Air Altered Mental Status - Medical Records Medical records reviewed: Yes I reviewed the patient's medical records. - Lab Data Lab results reviewed: Yes I reviewed the patient's lab results. Result diagrams: 10/11/17 01:15 10/11/17 01:15 Lab Results 10/10/17 10/10/17 10/10/17 Range/Units 20:02 20:04 22:20 Sodium 136 (136-145) mEq/L Potassium 5.1 (3.5-5.1) mEq/L Chloride 104 (98-107) mEq/L Carbon Dioxide 28 (23-29) mEq/L BUN 44 H (8-23) mg/dL Creatinine 2.11 H (0.70-1.30) mg/dL Est GFR ( Amer) 37 L (> 60) Est GFR (Non-Af Amer) 31 L (> 60) BUN/Creatinine Ratio 21 (6-26) Glucose 403 H (70-105) mg/dL POC Glucose 460 H* 451 H* (58-89) Calculated Osmolality 310 H (280-300) Calcium 8.8 (8.6-10.3) mg/dL - Radiology Data Radiology results reviewed: Yes I reviewed the patient's radiology results. - EKG Data EKG attestation: Yes I reviewed and interpreted this EKG. EKG results narrative: SINUS RHYTHM, RATE 78, NM INTERVAL 179, QRS 88, QTC 398, NORMAL AXIS, NO ACUTE ISCHEMIC CHANGES TPA Checklist - LKW: 3-4.5 hrs Add. Warnings/Precautions Patient/family understanding: The patient/family members have been counseled and understood the risk, benefit , and alternatives of treatment. S.B.A.R. - S.B.A.R. Situation: Demographics, MOA Background: Presenting Complaint, Relevant PMH, Meds, & Allergies Assessment: Vital Signs, Course and respsone to treatment, Exam Concerns, Patient/Family Expectation, Pertinant Lab Results, Outstanding Labs Recommendation: Recommendation based on pending studies, treatments, or consults S.B.A.R. Report Given to: Dr. Morrow Attestation Statement - Attestation Attestation: I, Harsh Meza MD, personally evaluated this patient and discussed their management with the resident physician. I reviewed the resident's note and agree with the documented findings, medical decision making, and plan of care. 77-year-old male transferred here from the NH for admission for altered mental status and elevated ammonia level. There was some question of possible pneumonia however patient states he did not have a chest x-ray at the NH and we do not see any evidence in the records that he had a chest x-ray or any mention of pneumonia. Patient was admitted here last week for similar symptoms. He has a history of liver cancer and is on lactulose. He was admitted with an ammonia level of 111 which came down to 34 before discharge. He was discharged 6 days ago. 4 days ago he developed some nausea and vomiting for a couple of days. Family reports that he choked and they think he aspirated on some of the emesis. 2 days ago he had a fever of 100.6 at home. He has not been coughing a lot and has not been short of breath. No complaint of chest pain. reports that he has been sleeping a lot, more than usual. He may have been mildly confused but not as bad as last week. Here in the emergency department the patient is alert and oriented 3 and does not seem confused at all. He apparently had a follow-up at the NH today and his ammonia level was back up to 91. They referred him here for admission. On examination patient is a well-developed obese elderly male in no acute distress. He is alert and oriented 3. There is no cyanosis or diaphoresis. Breath sounds are decreased but clear and equal bilaterally. Heart regular rate and rhythm. Abdomen is soft and nontender with normal bowel sounds. Labs from the NH reviewed. Fingerstick blood sugar here was 460. Chest x-ray negative. The hospitalist, Dr. Morrow, was consulted and accepted admission of the patient.
[2017-10-10] MEDS ORDERED: Insulin Human Regular 10 UNIT in 0.9 % Sodium Chloride 10 ML IV ONE (21:18)
[2017-10-10] MEDS ORDERED: 0.9 % Sodium Chloride 500 ML IVC ONE (21:18)
[2017-10-10 22:49] LABS: Calcium 8.8 mg/dL (8.6-10.3); Potassium 5.1 mEq/L (3.5-5.1)
[2017-10-11] MEDS ORDERED: Naloxone 0.4 MG/ML INJ IVP PRN (00:57)
[2017-10-11] MEDS ORDERED: *HR* Dextrose 50 % in Water (Syg) 50 ML SYRINGE IVP PRN (01:03)
[2017-10-11] MEDS ORDERED: D5% in Water 1,000 ML IVC PRN (01:03)
[2017-10-11] MEDS ORDERED: Dextrose Gel 15 GM PO PRN ×2 (01:03)
[2017-10-11] MEDS ORDERED: Insulin DETEMIR 100 UNIT/ML X5UNITS SQ SCH ×3 (01:15→09:15)
[2017-10-11] MEDS ORDERED: 0.9 % Sodium Chloride 1,000 ML IVC SCH (01:15)
[2017-10-11] MEDS ORDERED: Insulin LISPRO 300 UNITS/3 ML VIAL SQ SCH ×4 (01:15→21:00)
[2017-10-11 01:55] LABS: Basophils # 0.1 K/mcL (0.0-0.2); Basophils % 1.1 %; Eosinophils # 0.4 K/mcL (0.0-0.6); Hematocrit 31.7 % (37.5-50.1); Immature Granulocytes % 0.3 % (0-4); Lymphocytes # 1.9 K/mcL (0.6-4.6); Lymphocytes % 25.2 %; Mean Corpuscular HGB Conc 33.4 g/dL (31.6-35.5); Mean Corpuscular Hemoglobin 31.8 pg (28.0-33.3); Mean Corpuscular Volume 95.2 fL (83.0-100.0); Mean Platelet Volume 11.1 fL (9.4-12.4); Monocytes # 0.8 K/mcL (0.0-1.3); Monocytes % 10.8 %; Neutrophils # 4.3 K/mcL (1.6-8.9); Platelet Count 145 K/mcL (140-400); Red Blood Count 3.33 M/mcL (4.19-5.50); Red Cell Distribution Width 14.9 % (11.5-14.5); Segmented Neutrophils % 57.6 %
[2017-10-11 02:06] LABS: Hemoglobin 10.6 g/dL (12.9-16.9)
[2017-10-11 02:07] LABS: Calcium 8.7 mg/dL (8.6-10.3); Potassium 5.1 mEq/L (3.5-5.1)
[2017-10-11] MEDS ORDERED: Lactulose Oral Soln 20 GM/30 ML UDC PO ONE (02:19)
[2017-10-11 02:24] LABS: INR 1.1; Prothrombin Time 11.6 Seconds (9.4-12.1)
[2017-10-11] MEDS: Insulin LISPRO 300 UNITS/3 ML VIAL SQ SCH ×6 (02:30→16:31)
[2017-10-11] MEDS ORDERED: Nitroglycerin 0.4 MG TAB.SUBL SL PRN (05:13)
[2017-10-11] MEDS ORDERED: Baclofen 10 MG TABLET PO PRN (05:13)
[2017-10-11] MEDS ORDERED: Ondansetron ODT 4 MG TAB.RAPDIS PO PRN (05:13)
--- NOTE | 2017-10-11 06:03 | Internal Med History&Physical ---
<Leonel Easley - Last Filed: 10/11/17 06:26> Date of Encounter: 10/11/17 Time of Encounter: 01:00 Assessment and Plan (1) Acute hepatic encephalopathy Current visit: Yes Status: Acute Elevated ammonia of 110, given lactulose 20mg po once. Currently a&ox3; no episodes of confusion or sedation since ED. (2) TAY (acute kidney injury) Current visit: No Status: Acute Creatinine 2.11. 125mL/hr NS; lungs CTAB, hx CHF but no recollection of CHF exacerbation, will monitor fluid status. (3) Diabetes Current visit: No Status: Acute Insulin dependent DM2. Pt reports pancreatic involvement of HCC. Pt on sliding scale. Qualifiers: Diabetes mellitus type: type 2 Diabetes mellitus complication status: with kidney complications Diabetes mellitus complication detail: with chronic kidney disease Diabetes mellitus terminal system operator insulin use: with fdc use Chronic kidney disease stage: stage 3 (moderate) Qualified Code(s): E11.22 - Type 2 diabetes mellitus with diabetic chronic kidney disease; N18.3 - Chronic kidney disease, stage 3 (moderate); N18.3 - Chronic kidney disease, stage 3 ( moderate); Z79.4 - [facility] (current) use of insulin; Z79.4 - technician terminal and repeater ( current) use of insulin; Z79.4 - technician terminal and repeater (current) use of insulin; Z79.4 - technician terminal and repeater (current) use of insulin (4) Hepatocellular carcinoma Current visit: No Status: Acute Has been evaluated by oncology [facility], had been 1 year prognosis, patient wishes not to pursue chemo. Internal Medicine - H&P: HPI Admitted From: Emergency Dept Plans for Post Hospital Care: Hospice - Home History of present illness: Mr. Vieyra is a 77 year old male PMH DM2, hepatocellular carcinoma (abstaining from chemo), who was transferred from [place] for AMS x1day. ED labs showed elevated blood sugar, TAY, mild elevated potassium. CXR showed no acute process. Pt currently conversant and accompanied by daughter. Pt is on hospice, has seen [facility] oncology but wishes not to pursue chemo. Pt has mild discomfort in his R foot, denies fever, shortness of breath, chest pain. Past Med Surg Social Fam HX - Past Medical History Medical history: cancer, coronary artery disease, diabetes, hyperlipidemia, hypertension, other Psychiatric history: no psych history - Past Surgical History Surgical History: angioplasty/stent - Social History Smoking Status: Former smoker Smokeless Tobacco Status: No Alcohol use: none Drug use: none - Family History Father Living Status: Hx Family Cardiac Disorders: Yes Internal Medicine - H&P: Meds Colchicine [Colcrys] 0.6 mg PO DAILY 05/23/16 [History] Baclofen [Lioresal] 5 mg PO TID PRN 04/25/17 [History] Cholecalciferol (D-3) [Vitamin D] 1,000 unit PO DAILY 04/25/17 [History] Docusate Sodium 300 mg PO HS 04/25/17 [History] Collagenase Oint [Santyl] 1 appl TP BID 10/03/17 [History] Gabapentin [Neurontin] 600 mg PO BID 10/03/17 [History] Insulin ASPART [NovoLOG] 60 unit SQ QAM 10/03/17 [History] Insulin ASPART [NovoLOG] 100 unit SQ QPM 10/03/17 [History] Insulin Glargine [Lantus] 118 unit SQ BID 10/03/17 [History] Metoprolol [Lopressor] 12.5 mg PO BID 10/03/17 [History] Nitroglycerin [Nitrostat] 0.4 mg SL Q5M PRN 10/03/17 [History] Triamcinolone Acet 0.1% CRM [Kenalog] 1 appl TP BID PRN 10/03/17 [History] Clopidogrel [Plavix] 75 mg PO DAILY 10/10/17 [History] Febuxostat [Uloric] 40 mg PO DAILY 10/10/17 [History] Furosemide [Lasix] 40 mg PO QID 10/10/17 [History] Gentamicin Oint [Garamycin] 1 appl TP BID 10/10/17 [History] Lisinopril [Zestril] 10 mg PO DAILY 10/10/17 [History] Loratadine [Claritin] 10 mg PO DAILY PRN 10/10/17 [History] Ondansetron [Zofran] 8 mg PO TID PRN 10/10/17 [History] Sennosides [Senna] 8.6 mg PO BID 10/10/17 [History] Spironolactone [Aldactone] 25 mg PO DAILY 10/10/17 [History] Sucralfate [Carafate] 1 gm PO TID 10/10/17 [History] metOLazone [Zaroxolyn] 5 mg PO MOTH 10/10/17 [History] 3 Allergy/AdvReac Type Severity Reaction Status Date / Time morphine Allergy Difficulty Verified 10/03/17 22:12 Breathing shellfish derived Allergy Difficulty Verified 05/23/16 10:54 Breathing acetaminophen [From Vicodin] AdvReac Confusion Verified 10/11/17 01:13 atorvastatin [From Lipitor] AdvReac Muscle Pain Verified 10/11/17 01:13 hydrocodone [From Vicodin] AdvReac Confusion Verified 10/11/17 01:13 ibuprofen [From Motrin] AdvReac Gastrointestinal Verified 10/11/17 01:13 Upset tramadol AdvReac Confusion Verified 10/11/17 01:13 All Systems PM: A 10-system review of systems was performed and is negative for pertinent findings except as documented above in the HPI. - Constitutional Vitals: Temp Pulse Resp BP Pulse Ox 98.4 F 78 18 168/80 97 10/11/17 05:13 10/11/17 05:13 10/11/17 05:13 10/11/17 05:13 10/11/17 05:13 General appearance: Present: A&O X 3, no acute distress - Head Head exam: Present: atraumatic - Respiratory Respiratory exam: Present: CTAB - Cardiovascular Cardiovascular exam: Present: RRR, +S1, +S2. Absent: JVD, systolic murmur - Skin Additional comments: bruising L forearm Internal Med - H&P Results - Labs CBC & Chem 7: 10/11/17 01:15 10/11/17 01:15 Labs: Short CBC 10/11/17 Range/Units 01:15 WBC 7.5 (4.3-11.1) K/mcL Hgb 10.6 L D (12.9-16.9) g/dL Hct 31.7 L (37.5-50.1) % Plt Count 145 (140-400) K/mcL Neutrophils # 4.3 (1.6-8.9) K/mcL BMP 10/11/17 01:15 Sodium 141 Potassium 5.1 Chloride 106 Carbon Dioxide 24 BUN 43 H Creatinine 1.95 H Glucose 378 H Calcium 8.7 Liver Function 10/11/17 Range/Units 03:55 Albumin 3.1 L (3.5-5.7) g/dL <Areli Hitchcock N - Last Filed: 10/11/17 08:27> Date of Encounter: 10/11/17 Internal Medicine - H&P: HPI History of present illness: Mr. Vieyra is a 77 year old male All Systems PM: A 10-system review of systems was performed and is negative for pertinent findings except as documented above in the HPI. - Constitutional Vitals: Temp Pulse Resp BP Pulse Ox 98.2 F 67 18 143/57 97 10/11/17 07:20 10/11/17 07:20 10/11/17 07:20 10/11/17 07:20 10/11/17 07:20 Internal Med - H&P Results - Labs CBC & Chem 7: 10/11/17 01:15 10/11/17 01:15 Labs: Short CBC 10/11/17 Range/Units 01:15 WBC 7.5 (4.3-11.1) K/mcL Hgb 10.6 L D (12.9-16.9) g/dL Hct 31.7 L (37.5-50.1) % Plt Count 145 (140-400) K/mcL Neutrophils # 4.3 (1.6-8.9) K/mcL BMP 10/11/17 01:15 Sodium 141 Potassium 5.1 Chloride 106 Carbon Dioxide 24 BUN 43 H Creatinine 1.95 H Glucose 378 H Calcium 8.7 Liver Function 10/11/17 Range/Units 03:55 Albumin 3.1 L (3.5-5.7) g/dL - Attending Attestation History and physical reviewed and discussed with resident physician 77-year-old male with past medical history hepaocellular carcinoma, patient stated he had 2 bowel movements yesterday. Family stated that the patient taking his lactulose daily. Ammonia level is elevated up to 110. Patient received lactulose last night. No bowel movement yet. He denies any chest pain or shortness of breath. His mentation is clear compared to yesterday. Chest decreased breathing sound bilateral Heart S1-S2 normal Extremity positive 3 edema bilateral Abdomen distended Patient is more alert today compared to last night, moving all 4 extremities Assessment and plan Hepatic Encepalopathy ASCITES Counseling patient and family about the lactulose, titrate lactulose to have 2- 3 bowel movements / day
[2017-10-11] MEDS: *HR* OxyCODONE/APAP 10/325 TABLET PO PRN (06:53)
[2017-10-11] MEDS ORDERED: Loratadine 10 MG TABLET PO PRN (08:33)
[2017-10-11] MEDS ORDERED: metOLazone 5 MG TABLET PO SCH (08:45)
[2017-10-11] MEDS ORDERED: Lactulose Oral Soln 20 GM/30 ML UDC PO SCH ×2 (09:00→16:15)
[2017-10-11] MEDS ORDERED: Collagenase Oint 1 APPL GRAM TP SCH (09:00)
[2017-10-11] MEDS ORDERED: INSULIN GLARGINE SQ SCH (09:00)
[2017-10-11] MEDS ORDERED: Thiamine (B-1) 100 MG in D5% in Water 50 ML IVPB ONE (09:00)
[2017-10-11 09:49] LABS: Albumin 3.1 g/dL (3.5-5.7); Bilirubin,Direct 0.2 mg/dL (0.0-0.2); Bilirubin,Indirect 0.3 mg/dL (0.0-1.2); Bilirubin,Total 0.5 mg/dL (0.3-1.0); Globulin 3.2 g/dL (2.4-3.5); Total Protein 6.3 g/dL (6.4-8.9)
[2017-10-11] MEDS: Furosemide 40 MG TABLET PO SCH ×4 (09:52→20:57)
[2017-10-11] MEDS: Sucralfate 1 GM TABLET PO SCH ×3 (09:52→20:57)
[2017-10-11] MEDS: Cholecalciferol (D-3) 1,000 UNIT TABLET PO SCH (09:52)
[2017-10-11] MEDS: Gabapentin 300 MG CAPSULE PO SCH ×2 (09:52→20:57)
[2017-10-11] MEDS: Spironolactone 25 MG TABLET PO SCH (09:52)
[2017-10-11] MEDS: Thiamine (B-1) 100 MG TABLET PO SCH (09:52)
[2017-10-11] MEDS: Colchicine 0.6 MG TABLET PO SCH (09:52)
[2017-10-11] MEDS: Gentamicin Oint 15 GM TUBE TP SCH ×2 (11:00→20:56)
[2017-10-11] MEDS ORDERED: Artificial Tears SOLN 15 ML BOTTLE BOTH EYES PRN (11:13)
[2017-10-11 12:37] LABS: Hemoglobin A1C 7.4 %
--- NOTE | 2017-10-11 12:51 | Internal Med Progress Note ---
<TaosavannahZaina moya - Last Filed: 10/11/17 13:13> Date of Encounter: 10/11/17 Time of Encounter: 12:44 - Assessment and plan (1) Acute hepatic encephalopathy Current Visit: Yes Status: Acute Assessment and plan: Elevated ammonia on admission, 110 Lactulose therapy started Patient has still not had a bowel movement Titrate lactulose therapy 2-3 soft bowel movements per day Patient will need to be discharged on lactulose therapy (2) Hyperkalemia Current Visit: Yes Status: Acute Assessment and plan: Potassium was 6.1 at the MI; hyperglycemia likely contributory Decreased to 5.1 with insulin and fluids (3) Diabetes Current Visit: No Status: Acute Assessment and plan: Came in with hyperglycemia, 460 Home medications list Lantus 118 units BID and NovoLog 60 units QAM and 100 units QPM Patient received 18 units on date of admission; this brought his glucose down to in the 200s the following morning Start Levemir 30 units BID and Humalog 10 units TIDWM; adjust as needed Accu-Cheks, high-dose sliding scale Qualifiers: Diabetes mellitus type: type 2 Diabetes mellitus complication status: with kidney complications Diabetes mellitus complication detail: with chronic kidney disease Diabetes mellitus termite renewal inspector insulin use: with termite renewal inspector use Chronic kidney disease stage: stage 3 (moderate) Qualified Code(s): E11.22 - Type 2 diabetes mellitus with diabetic chronic kidney disease; N18.3 - Chronic kidney disease, stage 3 (moderate); N18.3 - Chronic kidney disease, stage 3 ( moderate); Z79.4 - assistant terminal manager (current) use of insulin; Z79.4 - snf ( current) use of insulin; Z79.4 - snf (current) use of insulin; Z79.4 - assistant terminal manager (current) use of insulin (4) Zyoyj-so-fnozvml kidney injury Current Visit: Yes Status: Acute Assessment and plan: TAY improved this morning Does not have a senior program analyst; will refer to [facility] on discharge Qualifiers: Acute renal failure type: unspecified Chronic kidney disease stage: stage 3 (moderate) Qualified Code(s): N17.9 - Acute kidney failure, unspecified; N18.3 - Chronic kidney disease, stage 3 (moderate); N18.3 - Chronic kidney disease, stage 3 (moderate) (5) HTN (hypertension) Current Visit: Yes Status: Chronic Assessment and plan: Chronic, stable Continue home medications Qualifiers: Hypertension type: unspecified Qualified Code(s): I10 - Essential (primary ) hypertension (6) Hepatocellular carcinoma Current Visit: No Status: Chronic Assessment and plan: Has been evaluated by [facility] oncology One-year prognosis Patient wishes not to pursue chemotherapy [facility] (7) Diabetic foot ulcer Current Visit: Yes Status: Chronic Assessment and plan: Being managed by wound care, Dr. Wiggins Qualifiers: Diabetic foot ulcer location: heel Diabetes mellitus type: type 2 Laterality: right Non-pressure ulcer stage: with fat layer exposed Qualified Code(s): E11.621 - Type 2 diabetes mellitus with foot ulcer; L97.412 - Non-pressure chronic ulcer of right heel and midfoot with fat layer exposed; L97.412 - Non-pressure chronic ulcer of right heel and midfoot with fat layer exposed; L97.412 - Non-pressure chronic ulcer of right heel and midfoot with fat layer exposed; L97.412 - Non-pressure chronic ulcer of right heel and midfoot with fat layer exposed - Constitutional Vitals: Temp Pulse Resp BP Pulse Ox 98.5 F 69 18 118/75 97 10/11/17 11:03 10/11/17 11:03 10/11/17 11:03 10/11/17 11:03 10/11/17 11:03 General appearance: Present: A&O X 3, no acute distress Internal Medicine: Result - Labs CBC & Chem 7: 10/11/17 01:15 10/11/17 01:15 Labs: Short CBC 10/11/17 Range/Units 01:15 WBC 7.5 (4.3-11.1) K/mcL Hgb 10.6 L D (12.9-16.9) g/dL Hct 31.7 L (37.5-50.1) % Plt Count 145 (140-400) K/mcL Neutrophils # 4.3 (1.6-8.9) K/mcL BMP 10/11/17 01:15 Sodium 141 Potassium 5.1 Chloride 106 Carbon Dioxide 24 BUN 43 H Creatinine 1.95 H Glucose 378 H Calcium 8.7 Liver Function 10/11/17 10/11/17 Range/Units 01:15 03:55 Total Bilirubin 0.5 (0.3-1.0) mg/dL Direct Bilirubin 0.2 (0.0-0.2) mg/dL AST 33 (13-39) Units/L ALT 23 (7-52) Units/L Alkaline Phosphatase 112 H (34-104) Units/L Albumin 3.1 L 3.1 L (3.5-5.7) g/dL - ABG Interpretation ABG results: PT/INR, D-dimer PT 11.6 Seconds (9.4-12.1) 10/11/17 01:15 Consult Discharge Plan - Plan [facility]errals: [facility]Primary Care Provider[facility] - [facility] [Provider Group] <Aden Oliva - Last Filed: 10/11/17 19:06> Date of Encounter: 10/11/17 - Constitutional Vitals: Temp Pulse Resp BP Pulse Ox 98.3 F 70 18 159/78 97 10/11/17 16:18 10/11/17 16:18 10/11/17 16:18 10/11/17 16:18 10/11/17 16:18 Internal Medicine: Result - Labs CBC & Chem 7: 10/11/17 01:15 10/11/17 01:15 Labs: Short CBC 10/11/17 Range/Units 01:15 WBC 7.5 (4.3-11.1) K/mcL Hgb 10.6 L D (12.9-16.9) g/dL Hct 31.7 L (37.5-50.1) % Plt Count 145 (140-400) K/mcL Neutrophils # 4.3 (1.6-8.9) K/mcL BMP 10/11/17 01:15 Sodium 141 Potassium 5.1 Chloride 106 Carbon Dioxide 24 BUN 43 H Creatinine 1.95 H Glucose 378 H Calcium 8.7 Liver Function 10/11/17 10/11/17 Range/Units 01:15 03:55 Total Bilirubin 0.5 (0.3-1.0) mg/dL Direct Bilirubin 0.2 (0.0-0.2) mg/dL AST 33 (13-39) Units/L ALT 23 (7-52) Units/L Alkaline Phosphatase 112 H (34-104) Units/L Albumin 3.1 L 3.1 L (3.5-5.7) g/dL - ABG Interpretation ABG results: PT/INR, D-dimer PT 11.6 Seconds (9.4-12.1) 10/11/17 01:15 - Attending Attestation I conducted a face to face diagnostic evaluation of this patient and my medical decision-making was reviewed with the Resident Physician. I agree with the documented findings, disposition and treatment plan as described except to the extent set forth below: Patient was admitted for acute metabolic encephalopathy. Elevated ammonia. On exam he is in no distress awake alert and oriented. Heart is regular. Lungs are clear. Abdomen is soft. There is a right heel stage III decubitus ulcer measuring 3-1/2 cm in largest diameter and a superficial left heel stage II decubitus ulcer. Plan: Lactulose every hour by mouth until patient has a bowel movement then 3 times daily Aden Oliva MD
[2017-10-11] MEDS: Lactulose Oral Soln 20 GM/30 ML UDC PO SCH ×2 (13:45→20:57)
--- NOTE | 2017-10-11 16:41 | Electrocardiograph Report ---
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
[2017-10-11] MEDS: Insulin DETEMIR 100 UNIT/ML X5UNITS SQ SCH (21:00)
[2017-10-12] MEDS: *HR* OxyCODONE/APAP 10/325 TABLET PO PRN (00:20)
[2017-10-12 07:03] VITALS: BP 149/68
[2017-10-12] MEDS: Insulin LISPRO 300 UNITS/3 ML VIAL SQ SCH ×2 (07:25)
[2017-10-12 07:31] LABS: Calcium 9.1 mg/dL (8.6-10.3); Potassium 5.5 mEq/L (3.5-5.1)
[2017-10-12 07:51] LABS: Basophils # 0.1 K/mcL (0.0-0.2); Basophils % 0.9 %; Eosinophils # 0.5 K/mcL (0.0-0.6); Eosinophils % 5.5 %; Hematocrit 33.4 % (37.5-50.1); Hemoglobin 11.3 g/dL (12.9-16.9); Immature Granulocytes % 3.2 % (0-4); Lymphocytes # 2.7 K/mcL (0.6-4.6); Lymphocytes % 32.9 %; Mean Corpuscular HGB Conc 33.8 g/dL (31.6-35.5); Mean Corpuscular Hemoglobin 32.1 pg (28.0-33.3); Mean Corpuscular Volume 94.9 fL (83.0-100.0); Monocytes # 0.8 K/mcL (0.0-1.3); Monocytes % 10.2 %; Neutrophils # 3.9 K/mcL (1.6-8.9); Nucleated Red Blood Cells 0.6 /100 WBC (0); Platelet Count 146 K/mcL (140-400); Red Blood Count 3.52 M/mcL (4.19-5.50); Red Cell Distribution Width 15.2 % (11.5-14.5); Segmented Neutrophils % 47.3 %
[2017-10-12] MEDS: Insulin DETEMIR 100 UNIT/ML X5UNITS SQ SCH (08:29)
[2017-10-12] MEDS: Cholecalciferol (D-3) 1,000 UNIT TABLET PO SCH (08:30)
[2017-10-12] MEDS: Lactulose Oral Soln 20 GM/30 ML UDC PO SCH (08:30)
[2017-10-12] MEDS: Colchicine 0.6 MG TABLET PO SCH (08:30)
[2017-10-12] MEDS: Spironolactone 25 MG TABLET PO SCH (08:30)
[2017-10-12] MEDS: Sucralfate 1 GM TABLET PO SCH (08:30)
[2017-10-12] MEDS: Thiamine (B-1) 100 MG TABLET PO SCH (08:30)
[2017-10-12] MEDS: Gabapentin 300 MG CAPSULE PO SCH (08:30)
[2017-10-12] MEDS: Furosemide 40 MG TABLET PO SCH (08:30)
--- NOTE | 2017-10-12 10:03 | Discharge Summary ---
<Zaina Burns - Last Filed: 10/12/17 11:01> Date of Encounter: 10/12/17 Time of Encounter: 10:00 - Discharge Diagnosis (1) Acute hepatic encephalopathy Priority: Primary Status: Acute (2) Hyperkalemia Priority: Primary Status: Acute (3) Diabetes Priority: Secondary Status: Acute Qualifiers: Diabetes mellitus type: type 2 Diabetes mellitus complication status: with kidney complications Diabetes mellitus complication detail: with chronic kidney disease Diabetes mellitus extermination supervisor insulin use: with correction use Chronic kidney disease stage: stage 3 (moderate) Qualified Code(s): E11.22 - Type 2 diabetes mellitus with diabetic chronic kidney disease; N18.3 - Chronic kidney disease, stage 3 (moderate); N18.3 - Chronic kidney disease, stage 3 ( moderate); Z79.4 - long term care social worker (current) use of insulin; Z79.4 - long term care social worker ( current) use of insulin; Z79.4 - intermediate (current) use of insulin; Z79.4 - long term care social worker (current) use of insulin (4) [id number] kidney injury Priority: Secondary Status: Acute Qualifiers: Acute renal failure type: unspecified Chronic kidney disease stage: stage 3 (moderate) Qualified Code(s): N17.9 - Acute kidney failure, unspecified; N18.3 - Chronic kidney disease, stage 3 (moderate); N18.3 - Chronic kidney disease, stage 3 (moderate) (5) HTN (hypertension) Priority: Secondary Status: Chronic Qualifiers: Hypertension type: unspecified Qualified Code(s): I10 - Essential (primary ) hypertension (6) Hepatocellular carcinoma Priority: Secondary Status: Chronic (7) Diabetic foot ulcer Priority: Secondary Status: Chronic Qualifiers: Diabetic foot ulcer location: heel Diabetes mellitus type: type 2 Laterality: right Non-pressure ulcer stage: with fat layer exposed Qualified Code(s): E11.621 - Type 2 diabetes mellitus with foot ulcer; L97.412 - Non-pressure chronic ulcer of right heel and midfoot with fat layer exposed; L97.412 - Non-pressure chronic ulcer of right heel and midfoot with fat layer exposed; L97.412 - Non-pressure chronic ulcer of right heel and midfoot with fat layer exposed; L97.412 - Non-pressure chronic ulcer of right heel and midfoot with fat layer exposed - Discharge Medications Prescriptions: Lactulose 30 gm PO TID #90 [facility] [place] Home Medications: Colchicine [Colcrys] 0.6 mg PO DAILY 05/23/16 [History] Baclofen [Lioresal] 5 mg PO TID PRN 04/25/17 [History] Cholecalciferol (D-3) [Vitamin D] 1,000 unit PO DAILY 04/25/17 [History] Docusate Sodium 300 mg PO HS 04/25/17 [History] Collagenase Oint [Santyl] 1 appl TP BID 10/03/17 [History] Gabapentin [Neurontin] 600 mg PO BID 10/03/17 [History] Insulin ASPART [NovoLOG] 60 unit SQ QAM 10/03/17 [History] Insulin ASPART [NovoLOG] 100 unit SQ QPM 10/03/17 [History] Insulin Glargine [Lantus] 118 unit SQ BID 10/03/17 [History] Metoprolol [Lopressor] 12.5 mg PO BID 10/03/17 [History] Nitroglycerin [Nitrostat] 0.4 mg SL Q5M PRN 10/03/17 [History] Triamcinolone Acet 0.1% CRM [Kenalog] 1 appl TP BID PRN 10/03/17 [History] Clopidogrel [Plavix] 75 mg PO DAILY 10/10/17 [History] Febuxostat [Uloric] 40 mg PO DAILY 10/10/17 [History] Furosemide [Lasix] 40 mg PO QID 10/10/17 [History] Gentamicin Oint [Garamycin] 1 appl TP BID 10/10/17 [History] Lisinopril [Zestril] 10 mg PO DAILY 10/10/17 [History] Loratadine [Claritin] 10 mg PO DAILY PRN 10/10/17 [History] Ondansetron [Zofran] 8 mg PO TID PRN 10/10/17 [History] Sennosides [Senna] 8.6 mg PO BID 10/10/17 [History] Spironolactone [Aldactone] 25 mg PO DAILY 10/10/17 [History] Sucralfate [Carafate] 1 gm PO TID 10/10/17 [History] metOLazone [Zaroxolyn] 5 mg PO MOTH 10/10/17 [History] Lactulose 30 gm PO TID #90 [facility] [place] 10/12/17 [Rx] Allergies/Adverse Reactions: 3 Allergy/AdvReac Type Severity Reaction Status Date / Time morphine Allergy Difficulty Verified 10/03/17 22:12 Breathing shellfish derived Allergy Difficulty Verified 05/23/16 10:54 Breathing acetaminophen [From Vicodin] AdvReac Confusion Verified 10/11/17 01:13 atorvastatin [From Lipitor] AdvReac Muscle Pain Verified 10/11/17 01:13 hydrocodone [From Vicodin] AdvReac Confusion Verified 10/11/17 01:13 ibuprofen [From Motrin] AdvReac Gastrointestinal Verified 10/11/17 01:13 Upset tramadol AdvReac Confusion Verified 10/11/17 01:13 Procedures/tests Complete & Pending: Procedures Performed prior 72 hours Category Date Time Status ECG 12 lead ECG [ECG] Routine Y 10/10/17 19:59 Completed - Notes to Outpatient Provider Suggest follow-up with outpatient dietitian for diabetes, chronic kidney disease , hepatocellular carcinoma, hepatic encephalopathy. Date of admission: 10/10/17 22:53 Primary care physician: PCP [place] Consults: 10/10/17 23:53 Consult to Internal Grinding Machine Operator [CONS] Routine Reason for SW Consult: Discharge planning. Pt has [facility] 10/11/17 01:06 Consult to Wound Care [CONS] Routine Reason for Consult: known DM foot ulcer R heel; XR foot 10/04 showed no osseous involvement Call Completed: No Discharging clinician: Zaina Burns Anticipated date of discharge: 10/12/17 - Patient Status Disposition: Hospice - Home Condition: Fair Functional capacity at discharge: wheelchair bound Overall status at discharge: patient is progressing back to baseline - Discharge Instructions Instructions: Diabetic Foot Care (DC) Follow Up With: [facility]/JM/STALIN/RIMA [Provider Group] - 11/07/17 2:20 pm () [facility] - (patient is going home with hospice, No PCP appointment needed) Additional Instructions: [facility] and chronic [facility] disease and hepatocellular carcinoma/hepatic encephalopathy. - Diet and Activity Diet: other (Renal, diabetic, cardiac diet) Interval History: Patient seen this morning. He is mentating normally. He states he is ready to go home. Hospital course: Mr. Vieyra is a 77 year old male sent over from the OR for altered mental status and hyperkalemia. He was also hyperglycemic on admission. His hyperkalemia was treated by treating his hyperglycemia, IV insulin and IV fluids. His altered mental status was due to acute hepatic encephalopathy, his lactulose was 110. He was treated with by mouth lactulose. His ammonia has decreased by half on the day of discharge. He is mentating normally. He will be discharged back to [facility] with lactulose therapy. Outpatient referral with [facility] will be set up due to CKD stage III. The patient and his family need dietary education on his multiple comorbid diagnoses which include diabetes, CK D stage III, acute hepatic encephalopathy, and hepatocellular carcinoma. Recommend follow-up with dietitian at the OR. Prior to admission, they were giving him orange juice to treat hypoglycemia. This most likely contributed to his hyperkalemia. - Time Spent with Patient Total time spent providing and/or coordinating discharge services: - Constitutional Vitals: Temp Pulse Resp BP Pulse Ox 98.3 F 64 16 149/68 97 10/12/17 07:00 10/12/17 07:40 10/12/17 07:00 10/12/17 07:00 10/12/17 07:00 General appearance: Present: A&O X 3, no acute distress - Head Head exam: Present: atraumatic, normocephalic - Eye Eye exam: Present: PERRL, conjuntiva pink, sclera anicteric Pupils: Present: PERRL - Neck Neck exam general surgery: Present: supple, trachea midline. Absent: lymphadenopathy - Respiratory Respiratory exam: Present: CTAB. Absent: accessory muscle use, rales, rhonchi, wheezes - Cardiovascular Cardiovascular exam: Present: RRR, +S1, +S2. Absent: diastolic murmur, gallop, rubs, systolic murmur - GI/Abdominal GI/Abdominal exam: Present: normal bowel sounds, soft, no peritoneal signs. Absent: distended, tenderness - Extremities Exam Extremities exam: Present: pedal edema, warm Additional comments: Bilateral lower extremities in air boots due to diabetic pressure ulcers - Neurological Exam Neurological exam: Present: CN II-XII intact, oriented X3, no focal deficits. Absent: pronater drift, facial droop, speech deficit - Skin Skin exam: Present: dry, intact <Ducu,Aden - Last Filed: 10/12/17 18:22> Date of Encounter: 10/12/17 Procedures/tests Complete & Pending: Procedures Performed prior 72 hours Category Date Time Status ECG 12 lead ECG [ECG] Routine Y 10/10/17 19:59 Completed Date of admission: 10/10/17 22:53 Primary care physician: [facility] Consults: 10/10/17 23:53 Consult to Internal Grinding Machine Operator [CONS] Routine Reason for SW Consult: Discharge planning. Pt has [facility] 10/11/17 01:06 Consult to Wound Care [CONS] Routine Reason for Consult: known DM foot ulcer R heel; XR foot 10/04 showed no osseous involvement Call Completed: No Hospital course: Mr. Vieyra is a 77 year old male - Time Spent with Patient Total time spent providing and/or coordinating discharge services: - Constitutional Vitals: Temp Pulse Resp BP Pulse Ox 98.3 F 64 16 149/68 97 10/12/17 07:00 10/12/17 07:40 10/12/17 07:00 10/12/17 07:00 10/12/17 07:00 - Attending Attestation I conducted a face to face diagnostic evaluation of this patient and my medical decision-making was reviewed with the Resident Physician. I agree with the documented findings, disposition and treatment plan as described except to the extent set forth below: Patient had a bowel movement. His mental status back to baseline. Ammonia has significantly decreased. We will continue with lactulose and recommend discharge home. Continue wound care for right heel decubitus ulcer. Aden Oliva MD
[2017-10-12] MEDS: Gentamicin Oint 15 GM TUBE TP SCH (10:09)
--- NOTE | 2017-10-12 10:43 | Physician Discharge Referral ---
Home Health/Hosp Referral Info Transfer to: Hospice Provider in Charge Post Discharge: Lard Maker - Diagnosis (1) Acute hepatic encephalopathy Priority: Primary Status: Acute (2) Hyperkalemia Priority: Primary Status: Acute (3) Diabetes Priority: Secondary Status: Acute (4) [id number] kidney injury Priority: Secondary Status: Acute (5) HTN (hypertension) Priority: Secondary Status: Chronic (6) Hepatocellular carcinoma Priority: Secondary Status: Chronic (7) Diabetic foot ulcer Priority: Secondary Status: Chronic - Respiratory Orders Smoking Cessation: Smoking cessation has been advised. For more information, call the [place] Tobacco Quit Line at 1-198-ZRSA-NOW. - Diet/Nutrition Diet/Nutrition Orders: Renal (diabetic cardiac) - Services Needed Home Care Orders: Dietitian for educational purposes about diagnosis of diabetes, chronic kidney disease, hepatocellular carcinoma/acute hepatic encephalopathy - Transfer Medications Prescriptions: Lactulose 30 gm PO TID #90 c Home Medications: Colchicine [Colcrys] 0.6 mg PO DAILY 05/23/16 [History] Baclofen [Lioresal] 5 mg PO TID PRN 04/25/17 [History] Cholecalciferol (D-3) [Vitamin D] 1,000 unit PO DAILY 04/25/17 [History] Docusate Sodium 300 mg PO HS 04/25/17 [History] Collagenase Oint [Santyl] 1 appl TP BID 10/03/17 [History] Gabapentin [Neurontin] 600 mg PO BID 10/03/17 [History] Insulin ASPART [NovoLOG] 60 unit SQ QAM 10/03/17 [History] Insulin ASPART [NovoLOG] 100 unit SQ QPM 10/03/17 [History] Insulin Glargine [Lantus] 118 unit SQ BID 10/03/17 [History] Metoprolol [Lopressor] 12.5 mg PO BID 10/03/17 [History] Nitroglycerin [Nitrostat] 0.4 mg SL Q5M PRN 10/03/17 [History] Triamcinolone Acet 0.1% CRM [Kenalog] 1 appl TP BID PRN 10/03/17 [History] Clopidogrel [Plavix] 75 mg PO DAILY 10/10/17 [History] Febuxostat [Uloric] 40 mg PO DAILY 10/10/17 [History] Furosemide [Lasix] 40 mg PO QID 10/10/17 [History] Gentamicin Oint [Garamycin] 1 appl TP BID 10/10/17 [History] Lisinopril [Zestril] 10 mg PO DAILY 10/10/17 [History] Loratadine [Claritin] 10 mg PO DAILY PRN 10/10/17 [History] Ondansetron [Zofran] 8 mg PO TID PRN 10/10/17 [History] Sennosides [Senna] 8.6 mg PO BID 10/10/17 [History] Spironolactone [Aldactone] 25 mg PO DAILY 10/10/17 [History] Sucralfate [Carafate] 1 gm PO TID 10/10/17 [History] metOLazone [Zaroxolyn] 5 mg PO MOTH 10/10/17 [History] Lactulose 30 gm PO TID #90 [facility] 10/12/17 [Rx] Allergies/Adverse Reactions: 3 Allergy/AdvReac Type Severity Reaction Status Date / Time morphine Allergy Difficulty Verified 10/03/17 22:12 Breathing shellfish derived Allergy Difficulty Verified 05/23/16 10:54 Breathing acetaminophen [From Vicodin] AdvReac Confusion Verified 10/11/17 01:13 atorvastatin [From Lipitor] AdvReac Muscle Pain Verified 10/11/17 01:13 hydrocodone [From Vicodin] AdvReac Confusion Verified 10/11/17 01:13 ibuprofen [From Motrin] AdvReac Gastrointestinal Verified 10/11/17 01:13 Upset tramadol AdvReac Confusion Verified 10/11/17 01:13 Certification: Further, I certify that my clinical findings support that this patient is homebound (i.e. absences from home require considerable and taxing effort and are for medical reasons or [employer] services or infrequently or short duration when for other reasons) because: Homebound Reason: Patient requires assistance of a person or device to safely leave home, Leaving home requires considerable and taxing effort due to condition Attestation: My signature below is to certify that this patient is under my care and that I, or nurse practitioner, or a physician's driller's assistant working with me, has a face-to -face encounter with this patient.
== END 2017-10-12 11:35 | disposition hospice, home (50) | DRG 441 ==
LOC: 2NNU 19:53 → EMEROO 19:53 → OBSVTOIN 22:53 → SUATTDRO 22:53 → 2NNU 23:17
PROVIDERS: ADMIT Student in an Organized Health Care Education/Training Program; ATTEND Internal Medicine

== ENCOUNTER 2018-06-13 17:21 | Inpatient (IN) ==
[2018-06-13] MEDS ORDERED: Aspirin 81 MG TAB.CHEW PO ONE (17:34)
--- NOTE | 2018-06-13 17:56 | Emergency Department Note ---
Disposition Clinical Impression: Pleural effusion Congestive heart failure Qualifiers: Heart failure type: unspecified Heart failure chronicity: unspecified Qualified Code(s): I50.9 - Heart failure, unspecified Ascites Qualifiers: Ascites type: other type Qualified Code(s): R18.8 - Other ascites Liver cancer Qualifiers: Liver malignancy type: unspecified liver malignancy Qualified Code(s): C22.9 - Malignant neoplasm of liver, not specified as primary or secondary Disposition: Admitted As Inpatient Condition: Good [facility]: [facility]Primary Care Provider[facility] - Time of Disposition: 21:18 General Adult HPI - General Stated complaint: Shortness of breath Time Seen by Provider: 06/13/18 17:23 Source: EMS Mode of arrival: EMS Limitations: physical limitation Nursing Notes Reviewed: Yes Vital Signs Reviewed: Yes - History of Present Illness HPI Narrative: 77 year old morbidly obese white male presents for shortness of breath, chest pressure, and elevated troponin. Patient states has been feeling short of breath and chest pressure for 1 week. Patient is transferred to [facility] from [place] for elevated troponin. Patient states he thought it was a "cold." Further reports increased swelling, feeling bloated, 20 pound weight gain in past month , and cough. Denies chest pain and shortness of breath at this time. Denies abdominal pain. Patient has medical history of CHF, liver cancer, diabetes, HTN , HLD. Patient is DNR. Former smoker, denies alcohol and drugs. Pain Scale: 0 - Related Data Home Medications Medication Instructions Recorded Confirmed Docusate Sodium 300 mg PO HS 04/25/17 05/20/18 Collagenase Oint [Santyl] 1 appl TP BID 10/03/17 05/20/18 Gabapentin [Neurontin] 600 mg PO BID 10/03/17 05/20/18 Insulin ASPART [NovoLOG] 100 unit SQ QPM 10/03/17 05/20/18 Insulin Glargine [Lantus] 118 unit SQ BID 10/03/17 05/20/18 Clopidogrel [Plavix] 75 mg PO DAILY 10/10/17 05/20/18 Febuxostat [Uloric] 40 mg PO DAILY 10/10/17 05/20/18 Gentamicin Oint [Garamycin] 1 appl TP BID 10/10/17 05/20/18 Ondansetron [Zofran] 8 mg PO TID PRN 10/10/17 05/20/18 metOLazone [Zaroxolyn] 5 mg PO MOTH 10/10/17 05/20/18 Albuterol Sulfate [Albuterol 2 puff IH Q6H PRN 06/13/18 06/13/18 Inhaler] Aspirin [Lo-Dose Aspirin EC] 81 mg PO DAILY 06/13/18 06/13/18 Diclofenac Sodium [Voltaren] 1 appl TP DAILY 06/13/18 06/13/18 Glucagon,Human Recombinant 1 mg IJ AD PRN 06/13/18 06/13/18 [Glucagon Emergency Kit] Guaifenesin [Mucus Relief] 400 mg PO TID 06/13/18 06/13/18 Lactulose 20 gm PO TID 06/13/18 06/13/18 Multivitamin [One Daily 1 tab PO DAILY 06/13/18 06/13/18 Multivitamin] Terbinafine HCl [Lamisil At] 1 appl TP BID 06/13/18 06/13/18 predniSONE [PredniSONE] 5 mg PO AD 06/13/18 06/13/18 raNITIdine HCl [Zantac] 150 mg PO BID 06/13/18 06/13/18 Allergies Allergy/AdvReac Type Severity Reaction Status Date / Time morphine Allergy Difficulty Verified 06/13/18 19:48 Breathing shellfish derived Allergy Difficulty Verified 06/13/18 19:48 Breathing acetaminophen [From Vicodin] AdvReac Confusion Verified 06/13/18 19:48 atorvastatin [From Lipitor] AdvReac Muscle Pain Verified 06/13/18 19:48 hydrocodone [From Vicodin] AdvReac Confusion Verified 06/13/18 19:48 ibuprofen [From Motrin] AdvReac Gastrointestinal Verified 06/13/18 19:48 Upset tramadol AdvReac Confusion Verified 06/13/18 19:48 All systems ED: reviewed and negative except as stated. Past Medical History - Past Medical History Medical history: Reports: cancer, coronary artery disease, diabetes, hyperlipidemia, hypertension, other Surgical history: Reports: angioplasty/stent Psychiatric history: Reports: no psych history - Social History Smoking Status: Former smoker Smokeless Tobacco Status: No Alcohol use: Reports: none Drug use: Reports: none Physical Exam - General Limitations: physical limitation General appearance: alert, in no apparent distress - Head Head exam: atraumatic, normocephalic, normal inspection - Eye Eye exam: Present: normal appearance, PERRL, EOMI - ENT ENT exam: normal exam, normal oropharynx, mucous membranes moist - Chest Chest inspection: Present: normal inspection, symmetric chest wall rise - Respiratory Respiratory exam: Present: normal lung sounds bilaterally - Cardiovascular Cardiovascular exam: Present: regular rate, normal rhythm, normal heart sounds - Abdominal Exam Abdominal exam: Present: soft, Non-Tender, distention, normal bowel sounds, other (Would wave). Absent: tenderness, guarding, rebound, rigidity, bruit - Extremities Exam Extremities exam: Present: full ROM, pedal edema (Pitting edema 3+ with tissue texture changes to bilateral lower extremities. Similar tissue texture changes to upper extremities ), other (Dressing on right ankle). Absent: normal inspection, tenderness - Neurological Exam Neurological exam: Present: alert, oriented X3, CN II-XII intact - Psychiatric Psychiatric exam: Present: normal affect, normal mood - Skin Skin exam: Present: warm, dry, other (Tissue texture changes to upper and lower extremities ). Absent: rash, cyanosis, diaphoresis Course Course Narrative: 77 year old morbidly obese male presents for shortness of breath and chest pressure for 1 week. Transferred from [place] urgent care for elevated troponin. Reports associated symptoms of worsening swelling, cough, feeling bloated, and 20 pound weight gain in past 1 month. Denies abdominal pain, chest pain, shortness of breath at this time. History of diabetes, HTN, HLD, coronary stent , and hepatocellular carcinoma. Patient is alert and oriented and of non-toxic appearance. Temperature 99.8, vitals otherwise unremarkable. On exam, there is significant pitting edema 3+ with tissue texture changes of lower extremities, some swelling and tissue texture changes of upper extremities also evident. Abdomen is distended without pain to palpation or fluid wave. Lungs are clear with good airflow. Heart is regular without extra heart sounds. Will order CT chest/abdomen and repeat labwork. Will provide ASA. - Reevaluation(s) Reevaluation #1: Review of medical records from [place] today reveals patient presenting for shortness of breath and chest discomfort for breathing for 1 week. Two diabetic ulcers on right foot. Medical history includes liver cancer, skin cancer, pancreatic cancer, dysmetabolic syndrome, diabetic neuropathy, morbid obesity, stasis dermatitis, left ventricular hypertrophy, CKD stage 3, multiple lung nodules, thyroid nodule, anxiety, seizure, CHF, asthma, CAILIN. BNP 2910, troponin 0.126. ABG reveals elevated pH 7.46. WBC elevated 14.2, low hemoglobin 10.6. BMP reveals Cr 1.33, GFR 55.6, otherwise unremarkable. CXR reveals findings suggesting CHF/pulmonary edema with bilateral pleural effusions, new from 2017. Time: 18:49 Reevaluation #2: Elevated troponin 0.10, improved from earlier today 0.126. BNP elevated 626, improved from earlier today 1290. Elevated WBC 14.5 with elevated neutrophils 11.4. BMP unremarkable, normal kidney function. Ammonia elevated 58, lower than prior labs: 64 and 95. Coagulation studies unremarkable. CT chest/abdomen reveals moderate pleural effusion and moderate ascites. Spoke with hospitalist Dr. Monreal who agrees to admit. Recommends starting patient on flagyl and cipro due to increased risk of spontaneous bacterial peritonitis. Discussed results with patient who voiced understanding and is agreeable to discharge. Time: 21:17 Vital Signs Temperature 99.8 F H 06/13/18 17:24 Pulse Rate 78 06/13/18 17:24 Respiratory Rate 16 06/13/18 17:24 Blood Pressure 149/76 06/13/18 17:24 O2 Sat by Pulse Oximetry 100 06/13/18 17:24 Temperature 99.8 F H 06/13/18 17:24 Pulse Rate 78 06/13/18 19:33 Respiratory Rate 16 06/13/18 20:32 Blood Pressure 163/71 06/13/18 20:32 O2 Sat by Pulse Oximetry 100 06/13/18 19:33 Oxygen Delivery Oxygen Delivery Nasal Cannula Medical Decision Making - [facility] Narrative Medical decision making narrative: Abdomen/Pelvis CT 06/13/18 17:40 IMPRESSION: Cholelithiasis without CT evidence for acute cholecystitis or biliary dilatation. Further evaluation may be warranted with ultrasound, if clinically appropriate. Moderate-sized pleural effusions and dependent atelectasis. Previously identified metastatic liver lesions are not visualized, which may be due to the absence of contrast on this exam. Moderate size ascites. Moderate stool burden. D/ / Marques Cedillo / Marques Cedillo Interpreting Provider: Marques Cedillo Chest CT 06/13/18 17:40 IMPRESSION: Cholelithiasis without CT evidence for acute cholecystitis or biliary dilatation. Further evaluation may be warranted with ultrasound, if clinically appropriate. Moderate-sized pleural effusions and dependent atelectasis. Previously identified metastatic liver lesions are not visualized, which may be due to the absence of contrast on this exam. Moderate size ascites. Moderate stool burden. D/ / Marques Cedillo / Marques Cedillo Interpreting Provider: Marques Cedillo - Medical Records Medical records reviewed: Yes I reviewed the patient's medical records. - Lab Data Lab results reviewed: Yes I reviewed the patient's lab results. Result diagrams: 06/13/18 18:00 06/13/18 18:00 Lab Results 06/13/18 06/13/18 06/13/18 Range/Units 18:00 18:00 18:00 WBC 14.5 H (4.3-11.1) K/mcL RBC 3.63 L (4.19-5.50) M/mcL Hgb 11.0 L (12.9-16.9) g/dL Hct 34.3 L (37.5-50.1) % MCV 94.5 (83.0-100.0) fL MCH 30.3 (28.0-33.3) pg MCHC 32.1 (31.6-35.5) g/dL RDW 14.9 H (11.5-14.5) % Plt Count 130 L (140-400) K/mcL MPV 11.1 (9.4-12.4) fL Immature Gran % 0.4 (0-4) % Seg Neutrophils % 78.6 % Lymphocytes % 10.8 % Monocytes % 7.9 % Eosinophils % 2.1 % Basophils % 0.2 % Neutrophils # 11.4 H (1.6-8.9) K/mcL Lymphocytes # 1.6 (0.6-4.6) K/mcL Monocytes # 1.2 (0.0-1.3) K/mcL Eosinophils # 0.3 (0.0-0.6) K/mcL Basophils # 0.0 (0.0-0.2) K/mcL Platelet Estimate Slight Decrease L (Normal) PT 11.6 (9.4-12.1) Seconds INR 1.0 APTT 29.7 (26.0-36.0) Seconds Sodium (136-145) mEq/L Potassium (3.5-5.1) mEq/L Chloride (98-107) mEq/L Carbon Dioxide (23-29) mEq/L BUN (8-23) mg/dL Creatinine (0.70-1.30) mg/dL Est GFR ( Amer) (> 60) Est GFR (Non-Af Amer) (> 60) BUN/Creatinine Ratio (6-26) Glucose (70-105) mg/dL Calculated Osmolality (280-300) Lactic Acid (0.5-2.2) mmol/L Calcium (8.6-10.3) mg/dL Ammonia (16-53) mcmol/L Troponin I (< 0.04) ng/mL B-Natriuretic Peptide 626 H (Less than 100) pg/mL 06/13/18 06/13/18 06/13/18 Range/Units 18:00 18:00 19:48 WBC (4.3-11.1) K/mcL RBC (4.19-5.50) M/mcL Hgb (12.9-16.9) g/dL Hct (37.5-50.1) % MCV (83.0-100.0) fL MCH (28.0-33.3) pg MCHC (31.6-35.5) g/dL RDW (11.5-14.5) % Plt Count (140-400) K/mcL MPV (9.4-12.4) fL Immature Gran % (0-4) % Seg Neutrophils % % Lymphocytes % % Monocytes % % Eosinophils % % Basophils % % Neutrophils # (1.6-8.9) K/mcL Lymphocytes # (0.6-4.6) K/mcL Monocytes # (0.0-1.3) K/mcL Eosinophils # (0.0-0.6) K/mcL Basophils # (0.0-0.2) K/mcL Platelet Estimate (Normal) PT (9.4-12.1) Seconds INR APTT (26.0-36.0) Seconds Sodium 142 (136-145) mEq/L Potassium 3.9 (3.5-5.1) mEq/L Chloride 101 (98-107) mEq/L Carbon Dioxide 36 H (23-29) mEq/L BUN 29 H (8-23) mg/dL Creatinine 1.14 (0.70-1.30) mg/dL Est GFR ( Amer) > 60 (> 60) Est GFR (Non-Af Amer) > 60 (> 60) BUN/Creatinine Ratio 25 (6-26) Glucose 83 (70-105) mg/dL Calculated Osmolality 299 (280-300) Lactic Acid 1.9 (0.5-2.2) mmol/L Calcium 9.0 (8.6-10.3) mg/dL Ammonia 58 H (16-53) mcmol/L Troponin I 0.10 H* (< 0.04) ng/mL B-Natriuretic Peptide (Less than 100) pg/mL - Radiology Data Radiology results reviewed: Yes I reviewed the patient's radiology results. - EKG Data EKG #1 EKG attestation: Yes I reviewed and interpreted this EKG. EKG results narrative: EKG 06/13/2018 17:27. Sinus rhythm with PVCs. Heart rate 79. No ST segment elevation or depression. No significant change from prior EKG 10/10/2017. Attestation Statement - Attestation Attestation: I, Prosper Goodwin DO, examined this patient [id number] and my medical decision-making was reviewed with Lindy Tate, Resident Physician. I agree with the documented findings, disposition and treatment plan as described except to the extent set forth below. Please see my progress notes for details.
[2018-06-13 18:15] LABS: Basophils % 0.2 %; Eosinophils # 0.3 K/mcL (0.0-0.6); Eosinophils % 2.1 %; Hematocrit 34.3 % (37.5-50.1); Immature Granulocytes % 0.4 % (0-4); Lymphocytes # 1.6 K/mcL (0.6-4.6); Lymphocytes % 10.8 %; Mean Corpuscular HGB Conc 32.1 g/dL (31.6-35.5); Mean Corpuscular Hemoglobin 30.3 pg (28.0-33.3); Mean Corpuscular Volume 94.5 fL (83.0-100.0); Mean Platelet Volume 11.1 fL (9.4-12.4); Monocytes % 7.9 %; Neutrophils # 11.4 K/mcL (1.6-8.9); Platelet Count 130 K/mcL (140-400); Red Blood Count 3.63 M/mcL (4.19-5.50); Red Cell Distribution Width 14.9 % (11.5-14.5); Segmented Neutrophils % 78.6 %
[2018-06-13 18:21] LABS: Prothrombin Time 11.6 Seconds (9.4-12.1)
[2018-06-13 18:24] LABS: Activated Partial Thrombo Time 29.7 Seconds (26.0-36.0)
--- NOTE | 2018-06-13 18:33 | Emergency Department Note ---
Disposition Clinical Impression: Pleural effusion, Ascites, Liver cancer Congestive heart failure Qualifiers: Heart failure type: unspecified Heart failure chronicity: unspecified Qualified Code(s): I50.9 - Heart failure, unspecified Disposition: Admitted As Inpatient Condition: Fair Time of Disposition: 20:29 General Adult HPI - General Chief complaint: ED Shortness of Breath/Dyspnea Stated complaint: Shortness of breath Time Seen by Provider: 06/13/18 17:23 Source: EMS Mode of arrival: EMS Limitations: physical limitation - History of Present Illness Pain Scale: 0 - Related Data Home Medications Medication Instructions Recorded Confirmed Docusate Sodium 300 mg PO HS 04/25/17 05/20/18 Collagenase Oint [Santyl] 1 appl TP BID 10/03/17 05/20/18 Gabapentin [Neurontin] 600 mg PO BID 10/03/17 05/20/18 Insulin ASPART [NovoLOG] 100 unit SQ QPM 10/03/17 05/20/18 Insulin Glargine [Lantus] 118 unit SQ BID 10/03/17 05/20/18 Clopidogrel [Plavix] 75 mg PO DAILY 10/10/17 05/20/18 Febuxostat [Uloric] 40 mg PO DAILY 10/10/17 05/20/18 Gentamicin Oint [Garamycin] 1 appl TP BID 10/10/17 05/20/18 Ondansetron [Zofran] 8 mg PO TID PRN 10/10/17 05/20/18 metOLazone [Zaroxolyn] 5 mg PO MOTH 10/10/17 05/20/18 Albuterol Sulfate [Albuterol 2 puff IH Q6H PRN 06/13/18 06/13/18 Inhaler] Aspirin [Lo-Dose Aspirin EC] 81 mg PO DAILY 06/13/18 06/13/18 Diclofenac Sodium [Voltaren] 1 appl TP DAILY 06/13/18 06/13/18 Glucagon,Human Recombinant 1 mg IJ AD PRN 06/13/18 06/13/18 [Glucagon Emergency Kit] Guaifenesin [Mucus Relief] 400 mg PO TID 06/13/18 06/13/18 Lactulose 20 gm PO TID 06/13/18 06/13/18 Multivitamin [One Daily 1 tab PO DAILY 06/13/18 06/13/18 Multivitamin] Terbinafine HCl [Lamisil At] 1 appl TP BID 06/13/18 06/13/18 predniSONE [PredniSONE] 5 mg PO AD 06/13/18 06/13/18 raNITIdine HCl [Zantac] 150 mg PO BID 06/13/18 06/13/18 Allergies Allergy/AdvReac Type Severity Reaction Status Date / Time morphine Allergy Difficulty Verified 06/13/18 19:48 Breathing shellfish derived Allergy Difficulty Verified 06/13/18 19:48 Breathing acetaminophen [From Vicodin] AdvReac Confusion Verified 06/13/18 19:48 atorvastatin [From Lipitor] AdvReac Muscle Pain Verified 06/13/18 19:48 hydrocodone [From Vicodin] AdvReac Confusion Verified 06/13/18 19:48 ibuprofen [From Motrin] AdvReac Gastrointestinal Verified 06/13/18 19:48 Upset tramadol AdvReac Confusion Verified 06/13/18 19:48 Past Medical History - Past Medical History Medical history: Reports: cancer, coronary artery disease, diabetes, hyperlipidemia, hypertension, other Surgical history: Reports: angioplasty/stent Psychiatric history: Reports: no psych history - Social History Smoking Status: Former smoker Smokeless Tobacco Status: No Alcohol use: Reports: none Drug use: Reports: none Physical Exam - General Limitations: physical limitation General appearance: alert, in no apparent distress Course Vital Signs Temperature 99.8 F H 06/13/18 17:24 Pulse Rate 78 06/13/18 17:24 Respiratory Rate 16 06/13/18 17:24 Blood Pressure 149/76 06/13/18 17:24 O2 Sat by Pulse Oximetry 100 06/13/18 17:24 Temperature 99.8 F H 06/13/18 17:24 Pulse Rate 78 06/13/18 19:33 Respiratory Rate 16 06/13/18 19:33 Blood Pressure 143/65 06/13/18 19:33 O2 Sat by Pulse Oximetry 100 06/13/18 19:33 Oxygen Delivery Oxygen Delivery Room Air Medical Decision Making - Lab Data Result diagrams: 06/13/18 18:00 06/13/18 18:00 Lab Results 06/13/18 06/13/18 06/13/18 Range/Units 18:00 18:00 18:00 WBC 14.5 H (4.3-11.1) K/mcL RBC 3.63 L (4.19-5.50) M/mcL Hgb 11.0 L (12.9-16.9) g/dL Hct 34.3 L (37.5-50.1) % MCV 94.5 (83.0-100.0) fL MCH 30.3 (28.0-33.3) pg MCHC 32.1 (31.6-35.5) g/dL RDW 14.9 H (11.5-14.5) % Plt Count 130 L (140-400) K/mcL MPV 11.1 (9.4-12.4) fL Immature Gran % 0.4 (0-4) % Seg Neutrophils % 78.6 % Lymphocytes % 10.8 % Monocytes % 7.9 % Eosinophils % 2.1 % Basophils % 0.2 % Neutrophils # 11.4 H (1.6-8.9) K/mcL Lymphocytes # 1.6 (0.6-4.6) K/mcL Monocytes # 1.2 (0.0-1.3) K/mcL Eosinophils # 0.3 (0.0-0.6) K/mcL Basophils # 0.0 (0.0-0.2) K/mcL Platelet Estimate Slight Decrease L (Normal) PT 11.6 (9.4-12.1) Seconds INR 1.0 APTT 29.7 (26.0-36.0) Seconds Sodium (136-145) mEq/L Potassium (3.5-5.1) mEq/L Chloride (98-107) mEq/L Carbon Dioxide (23-29) mEq/L BUN (8-23) mg/dL Creatinine (0.70-1.30) mg/dL Est GFR ( Amer) (> 60) Est GFR (Non-Af Amer) (> 60) BUN/Creatinine Ratio (6-26) Glucose (70-105) mg/dL Calculated Osmolality (280-300) Lactic Acid (0.5-2.2) mmol/L Calcium (8.6-10.3) mg/dL Ammonia (16-53) mcmol/L Troponin I (< 0.04) ng/mL B-Natriuretic Peptide 626 H (Less than 100) pg/mL 06/13/18 06/13/18 06/13/18 Range/Units 18:00 18:00 19:48 WBC (4.3-11.1) K/mcL RBC (4.19-5.50) M/mcL Hgb (12.9-16.9) g/dL Hct (37.5-50.1) % MCV (83.0-100.0) fL MCH (28.0-33.3) pg MCHC (31.6-35.5) g/dL RDW (11.5-14.5) % Plt Count (140-400) K/mcL MPV (9.4-12.4) fL Immature Gran % (0-4) % Seg Neutrophils % % Lymphocytes % % Monocytes % % Eosinophils % % Basophils % % Neutrophils # (1.6-8.9) K/mcL Lymphocytes # (0.6-4.6) K/mcL Monocytes # (0.0-1.3) K/mcL Eosinophils # (0.0-0.6) K/mcL Basophils # (0.0-0.2) K/mcL Platelet Estimate (Normal) PT (9.4-12.1) Seconds INR APTT (26.0-36.0) Seconds Sodium 142 (136-145) mEq/L Potassium 3.9 (3.5-5.1) mEq/L Chloride 101 (98-107) mEq/L Carbon Dioxide 36 H (23-29) mEq/L BUN 29 H (8-23) mg/dL Creatinine 1.14 (0.70-1.30) mg/dL Est GFR ( Amer) > 60 (> 60) Est GFR (Non-Af Amer) > 60 (> 60) BUN/Creatinine Ratio 25 (6-26) Glucose 83 (70-105) mg/dL Calculated Osmolality 299 (280-300) Lactic Acid 1.9 (0.5-2.2) mmol/L Calcium 9.0 (8.6-10.3) mg/dL Ammonia 58 H (16-53) mcmol/L Troponin I 0.10 H* (< 0.04) ng/mL B-Natriuretic Peptide (Less than 100) pg/mL Attestation Statement - Attestation Attestation: I, Prosper Goodwin DO, examined this patient [id number] and my medical decision-making was reviewed with Lindy Tate, Resident Physician. I agree with the documented findings, disposition and treatment plan as described except to the extent set forth below. Please see my progress notes for details. 77-year-old male presents emergency room for the [facility] for evaluation of elevated troponin distended abdomen and some intermittent chest discomfort and pain. Patient currently has known liver cancer with no known metastases. He has refused chemotherapy and radiation therapy as well as continued care by oncology. There has been no other evaluations completed for progression of his disease since the initial diagnosis almost 1 year ago. Patient was given approximate 6 month life expectancy any is lasted approximately 14 months at this time. Currently is denying any fevers or chills denies chest pain shortness of breath headache vision changes nausea vomiting or diarrhea except for when he stands up. He has noticed or describes a 20 pound weight gain over the last several weeks and significant abdominal distention. Vital signs are reviewed and otherwise unremarkable except for a temperature of 99.8. Patient is denying any fevers at home. Patient currently appears to be a full code based on conversations with the family and that is why he has been removed from hospice treatment. Patient is currently not taking treatment for his known liver cancer. Detailed workup including repeat labs EKG CT imaging of the chest and abdomen will be resulted and disposition will be determined. His physical exam shows a morbidly obese gentleman who is resting comfortably in the bed. His head is atraumatic his pupils are equal round reactive his oropharynx is patent trachea is midline. He is alert he follows commands appropriately has no visible signs of facial asymmetry. His lungs are clear his heart is regular his abdomen is significantly distended with a positive fluid wave. CT imaging will confirm the ascites suspicion of this time. If need be bedside ultrasound will utilize. Most of the patient's symptoms and pain appear to be secondary to fluid pushing up against the diaphragm and into the chest cavity. Patient otherwise clinically stable. We will continue to monitor here and disposition will be determined. He was sent over from the [facility] with an elevated troponin which is most likely secondary to fluid accumulation since this does not appear to be an anginal equivalent this time. Aspirin has been given. Coagulation studies and liver function testing will be completed 2024 Patient has relatively normal laboratory workup this time. CTs of the chest do show bilateral pleural effusions along with ascites. Patient is asymptomatic this point his troponin is 0.01 with no other acute issues. Aspirin will be given. Patient will be admitted for continuation of care for the establishment of his wishes with his continuation of medical treatment. The hospitalist Dr. Gutierrez reviewed the case and no other recommendations or concerns outside adding on Cipro and Flagyl for possible spontaneous bacterial peritonitis despite the patient having any acute signs of elevated white blood cell count or peritoneal symptoms prophylactic treatment will be started.
[2018-06-13 18:35] LABS: BUN/Creatinine Ratio 25 (6-26); Blood Urea Nitrogen 29 mg/dL (8-23); Carbon Dioxide 36 mEq/L (23-29); Chloride 101 mEq/L (98-107); Glucose 83 mg/dL (70-105); Osmolality,Calculated 299 (280-300); Potassium 3.9 mEq/L (3.5-5.1); Sodium 142 mEq/L (136-145); eGFR For Non-African Americans > 60 (> 60)
[2018-06-13 18:45] LABS: Monocytes # 1.2 K/mcL (0.0-1.3)
[2018-06-13 18:48] LABS: Platelet Estimate Slight Decrease (Normal)
[2018-06-13] MEDS ORDERED: MetroNIDAZOLE 500 MG/100 ML 500 MG/100 ML BAG IVPB ONE (20:11)
[2018-06-13] MEDS ORDERED: *HR* OxyCODONE Immed Rel 5 MG TABLET PO PRN (22:07)
[2018-06-14] MEDS ORDERED: Naloxone 0.4 MG/ML INJ IVP PRN (03:37)
[2018-06-14] MEDS ORDERED: Acetaminophen 325 MG TABLET PO PRN (03:37)
[2018-06-14] MEDS ORDERED: Dextrose Gel 15 GM/37.5 ML TUBE PO PRN ×2 (03:41)
[2018-06-14] MEDS ORDERED: D5% in Water 1,000 ML IVC PRN (03:41)
[2018-06-14] MEDS ORDERED: *HR* Dextrose 50 % in Water (Syg) 50 ML SYRINGE IVP PRN (03:41)
--- NOTE | 2018-06-14 03:46 | Internal Med History&Physical ---
<Brenton León - Last Filed: 06/14/18 04:39> Date of Encounter: 06/14/18 Time of Encounter: 03:43 Internal Medicine - H&P: HPI Chief complaint: weight gain, chest pressure Admitted From: Emergency Dept Plans for Post Hospital Care: Home History of present illness: Mr. Vieyra is a 77 year old male with a PMHx of Perphenazine, diabetes, hypertension, hyperlipidemia, CAD, stage IV hepatocellular carcinoma who presented to emergency room with complaint of chest pressure, shortness of breath, weight gain. At this time, he states his chest pressure has resolved. Of note, patient is lethargic and falls asleep but does answer questions appropriately. He states that chest pressure has been present for about one week and is nonexertional. He is reportedly gained approximately 20 pounds in the past month. He is also noticed abdominal distention, lower extremity swelling with occasional weeping fluid. He denies any symptoms of fevers, chills, nausea, vomiting, change in bowel movements. 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 He has not been receiving chemotherapy and is declining at this time. He has never experienced these symptoms before. In the emergency department vitals were significant for BP of 147/84, is saturating 100% on 4 L oxygen. Laboratory results significant for WBC of 14.5, BUNs/creatinine of 29/1.14, ammonia 58, troponin 0.10, BNP 626. CT scan of the abdomen was obtained showing gallstones without evidence of inflammation, moderate pleural effusions bilaterally, moderate ascites. Past medical history as above Past surgical history includes cardiac stent Social history: Patient is a former smoker, denies alcohol or drug use Past Med Surg Social Fam HX - Past Medical History Medical history: cancer, coronary artery disease, diabetes, hyperlipidemia, hypertension, other Additional medical history: pancreas and liver cancer Psychiatric history: no psych history - Past Surgical History Surgical History: angioplasty/stent Additional surgical history: 7 stents - Social History Smoking Status: Former smoker Smokeless Tobacco Status: No Alcohol use: none Drug use: none - Family History Father Adopted: No Family Member Ethnicity: Non- Living Status: Hx Family Cardiac Disorders: Yes Hx Family Respiratory Disorders: Yes Hx Family Cancer: No Hx Family GI Disorders: No Hx Family Endocrine Disorder: No Hx Family Neuromuscular Disorders: No Hx Family Neurologic Disorders: No Hx Family HEENT Disorders: No Hx Family Autoimmune Disorders: No Mother Adopted: No Family Member Ethnicity: Non- Living Status: Hx Family Cardiac Disorders: Yes Hx Family Respiratory Disorders: Yes Hx Family Cancer: No Hx Family GI Disorders: No Hx Family Endocrine Disorder: Yes Hx Family Neuromuscular Disorders: No Hx Family Neurologic Disorders: No Hx Family HEENT Disorders: No Hx Family Autoimmune Disorders: No Internal Medicine - H&P: Meds Docusate Sodium 300 mg PO HS 04/25/17 [History] Collagenase Oint [Santyl] 1 appl TP BID 10/03/17 [History] Gabapentin [Neurontin] 600 mg PO DAILY 10/03/17 [History] Insulin ASPART [NovoLOG] 50 - 80 unit SQ BID 10/03/17 [History] Insulin Glargine [Lantus] 100 unit SQ BID 10/03/17 [History] Clopidogrel [Plavix] 75 mg PO DAILY 10/10/17 [History] Febuxostat [Uloric] 40 mg PO DAILY 10/10/17 [History] Gentamicin Oint [Garamycin] 1 appl TP BID 10/10/17 [History] Ondansetron [Zofran] 8 mg PO TID PRN 10/10/17 [History] metOLazone [Zaroxolyn] 5 mg PO MOTH 10/10/17 [History] Albuterol Sulfate [Albuterol Inhaler] 2 puff IH Q6H PRN 06/13/18 [History] Aspirin [Lo-Dose Aspirin EC] 81 mg PO DAILY 06/13/18 [History] Diclofenac Sodium [Voltaren] 1 appl TP DAILY 06/13/18 [History] Glucagon,Human Recombinant [Glucagon Emergency Kit] 1 mg IJ AD PRN 06/13/18 [ History] Guaifenesin [Mucus Relief] 400 mg PO TID 06/13/18 [History] Lactulose 20 gm PO TID 06/13/18 [History] Multivitamin [One Daily Multivitamin] 1 tab PO DAILY 06/13/18 [History] OxyCODONE Immed Rel [Roxicodone 10 MG] 10 mg PO Q4H PRN 06/13/18 [History] Terbinafine HCl [Lamisil At] 1 appl TP BID 06/13/18 [History] predniSONE [PredniSONE] 5 mg PO AD 06/13/18 [History] raNITIdine HCl [Zantac] 150 mg PO BID 06/13/18 [History] 3 Allergy/AdvReac Type Severity Reaction Status Date / Time morphine Allergy Difficulty Verified 06/13/18 19:48 Breathing shellfish derived Allergy Difficulty Verified 06/13/18 19:48 Breathing acetaminophen [From Vicodin] AdvReac Confusion Verified 06/13/18 19:48 atorvastatin [From Lipitor] AdvReac Muscle Pain Verified 06/13/18 19:48 hydrocodone [From Vicodin] AdvReac Confusion Verified 06/13/18 19:48 ibuprofen [From Motrin] AdvReac Gastrointestinal Verified 06/13/18 19:48 Upset tramadol AdvReac Confusion Verified 06/13/18 19:48 All Systems PM: A 10-system review of systems was performed and is negative for pertinent findings except as documented above in the HPI. - Constitutional Constitutional: weight gain, no chills, no fever(s), no malaise, no night sweats - Cardiovascular Cardiovascular ROS IM: chest pain, dyspnea, dyspnea on exertion, edema, orthopnea - Respiratory Respiratory: dyspnea, dyspnea on exertion, no cough - Gastrointestinal Gastrointestinal: no abdominal pain, no constipation, no diarrhea, no dyspepsia , no dysphagia, no hematemesis, no hematochezia, no melena, no nausea, no vomiting - Integumentary Integumentary IM: no rash - Neurological Neurological ROS: no confusion, no numbness, no tingling, no weakness - Constitutional Vitals: Temp Pulse Resp BP Pulse Ox 98.5 F 76 18 147/84 100 06/14/18 01:02 06/14/18 01:02 06/14/18 01:02 06/14/18 01:02 06/14/18 01:02 Exam: Gen.: Vitals noted. No acute distress. Lethargic but does answer questions appropriately. Resting comfortably in bed HEENT: PERRL/EOMI, oropharynx clear, Normocephalic, atraumatic, moist mucous membranes Cardiac: RRR, no murmur, +S1/S2 Pulmonary: CTA bilaterally, no wheezes, rales or rhonchi, equal chest expansion. Diminished Lungs sounds in bases Abdomen: soft, nontender, BS noted, no guarding. Distended with possible fluid wave appreciated. Anasarca Extremities: 3+ BLE edema, nontender calf, no cyanosis or clubbing Neuro: A&Ox3, moves all extremities, no focal deficits Psych: Appropriate mood and behavior Internal Med - H&P Results - Labs CBC & Chem 7: 06/13/18 18:00 06/13/18 18:00 - Assessment and plan (1) Ascites Current Visit: Yes Status: Acute Assessment and plan: - As demonstrated on CT in ED. Anasarca with moderate amount of ascites. 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 [place], N1, M0 stage IV a - Follows at [facility] for some of his care Plan - Await results of CMP - Most likely will need therapeutic paracentesis tomorrow with diagnostic analysis - Diuresis as tolerated - Low threshold for antibiotics for SBP - Palliative care consult Qualifiers: Ascites type: malignant Qualified Code(s): R18.0 - Malignant ascites (2) Pleural effusion Current Visit: Yes Status: Acute Assessment and plan: Likely secondary to ascites as above. - As demonstrated on CT in ED - Currently tolerating 4L O2 - No previous diagnosis of CHF per daughter. 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 [place], N1, M0 stage IV a - Not getting treatment - Follows at [facility] for most of his care - Palliative care consult - Discussed code status and he is adamant and clear that he does not want resuscitation or intubation. He states he just wants to be kept comfortable. (5) Diabetes Current Visit: Yes Status: Chronic Assessment and plan: BS 83 on presentation ADA diet SSI moderate Qualifiers: Diabetes mellitus type: type 2 Diabetes mellitus lead generation specialist insulin use: with lead generation specialist use Diabetes mellitus complication status: with kidney complications Diabetes mellitus complication detail: with chronic kidney disease Chronic kidney disease stage: stage 3 (moderate) Qualified Code(s): E11.22 - Type 2 diabetes mellitus with diabetic chronic kidney disease; N18.3 - Chronic kidney disease, stage 3 (moderate); Z79.4 - detention (current) use of insulin (6) HTN (hypertension) Current Visit: Yes Status: Chronic Assessment and plan: moderately well controlled at 147/84 continue home meds Qualifiers: Hypertension type: essential hypertension Qualified Code(s): I10 - Essential (primary) hypertension (7) DVT prophylaxis Current Visit: Yes Status: Acute Assessment and plan: heparin 5000 units q12 hours (8) Elevated troponin Current Visit: Yes Status: Acute Assessment and plan: - Trop of 0.10 on presentation - Likely secondary to demand ischemia - No EKG changes - Chest pain has resolved at this time - Will trend troponin - Time Spent With Patient Total time spent is greater than 50% in coordination of care (as documented) at patient's floor/unit and/or counseling patient: <Eddie Monreal - Last Filed: 06/14/18 07:06> Date of Encounter: 06/14/18 Time of Encounter: 05:35 - Constitutional Constitutional: no chills, no fever(s) - EENT Eyes: no change in vision Ears: no tinnitus Nose, mouth and throat: no nasal congestion, no sore throat - Cardiovascular Cardiovascular ROS IM: dyspnea, dyspnea on exertion, edema, orthopnea, paroxysmal nocturnal dyspnea - Respiratory Respiratory: no hemoptysis, no chest congestion - Gastrointestinal Gastrointestinal: bloating, early satiety, nausea - Genitourinary Genitourinary ROS male: no dysuria, no flank pain, no hematuria - Musculoskeletal Musculoskeletal ROS IM: muscle cramps, no arthralgias - Integumentary Integumentary IM: no jaundice - Psychiatric Psychiatric: no anxiety, no depression - Allergic/Immunologic Allergic/Immunologic: GI upset with certain foods - Constitutional Vitals: Temp Pulse Resp BP Pulse Ox 98.5 F 75 18 162/77 100 06/14/18 05:06 06/14/18 05:06 06/14/18 05:06 06/14/18 05:06 06/14/18 05:06 General appearance: Present: cooperative, mild distress, A&O X 3, pleasant, answers questions appropriately - Eye Eye exam: Present: PERRL. Absent: scleral icterus - ENT ENT exam: Present: mucous membranes dry, normal exam - Neck Neck exam general surgery: Present: supple. Absent: tenderness - Respiratory Respiratory exam: Present: decreased breath sounds (both bases). Absent: chest wall tenderness, respiratory distress, wheezes - Cardiovascular Cardiovascular exam: Present: distant heart sounds, RRR, +S1, +S2 - GI/Abdominal GI/Abdominal exam: Present: distended, hypoactive bowel sounds. Absent: guarding, rebound, tenderness Additional comments: distended abdomen with anasarca and suspected ascites on exam - Extremities Exam Extremities exam: Present: pedal edema (3+), warm. Absent: joint swelling, tenderness - Neurological Exam Neurological exam: Present: alert, oriented X3, no focal deficits Internal Med - H&P Results - Labs CBC & Chem 7: 06/14/18 04:14 06/13/18 18:00 Labs: Short CBC 06/14/18 Range/Units 04:14 WBC 13.8 H (4.3-11.1) K/mcL Hgb 10.7 L (12.9-16.9) g/dL Hct 34.0 L (37.5-50.1) % Plt Count 136 L (140-400) K/mcL Neutrophils # 10.0 H (1.6-8.9) K/mcL Cardiac Enzymes 06/14/18 Range/Units 04:14 Troponin I 0.09 H* (< 0.04) ng/mL - Assessment and plan (1) HTN (hypertension) Current Visit: Yes Status: Chronic Qualifiers: Hypertension type: essential hypertension Qualified Code(s): I10 - Essential (primary) hypertension (2) Diabetes Current Visit: Yes Status: Chronic Qualifiers: Diabetes mellitus type: type 2 Diabetes mellitus snf insulin use: with snf use Diabetes mellitus complication status: with kidney complications Diabetes mellitus complication detail: with chronic kidney disease Chronic kidney disease stage: stage 3 (moderate) Qualified Code(s): E11.22 - Type 2 diabetes mellitus with diabetic chronic kidney disease; N18.3 - Chronic kidney disease, stage 3 (moderate); Z79.4 - detention (current) use of insulin (3) Hepatocellular carcinoma Current Visit: Yes Status: Chronic (4) Serum ammonia increased Current Visit: Yes Status: Acute (5) DVT prophylaxis Current Visit: Yes Status: Acute (6) Pleural effusion Current Visit: Yes Status: Acute (7) Ascites Current Visit: Yes Status: Acute Qualifiers: Ascites type: malignant Qualified Code(s): R18.0 - Malignant ascites (8) Elevated troponin Current Visit: Yes Status: Acute - Time Spent With Patient Total time spent is greater than 50% in coordination of care (as documented) at patient's floor/unit and/or counseling patient: - Attending Attestation I discussed the patient ILIAMNA, PMH, ROS, lab data, and exam findings with Dr. León. I then saw and examined patient independently as well. I met with patient and his daughter. Both confirm DNC code status. He notes 20# weight gain over the last serval days/weeks, + SOB, BLE edema, and decreased appetite along with nausea. I explained to them I suspect his ascites and weight are likely due to malignant ascites from pancreatic cancer. I also recommend a diagnostic and therapeutic paracentesis. They are in agreement. I do not feel he has SBP on exam and/or history. I recommend palliative care consult, and they are agreeable. Patient declined treatment for pancreatic cancer when diagnosed and he understands his condition is terminal. Other than my comments above and noted exam findings, I agree with Dr. León's assessment and plan.
[2018-06-14] MEDS: *HR* OxyCODONE Immed Rel 5 MG TABLET PO PRN ×4 (04:28→23:34)
[2018-06-14 04:43] LABS: Basophils % 0.3 %; Eosinophils # 0.6 K/mcL (0.0-0.6); Eosinophils % 4.6 %; Hemoglobin 10.7 g/dL (12.9-16.9); Immature Granulocytes % 0.4 % (0-4); Lymphocytes % 14.3 %; Mean Corpuscular HGB Conc 31.5 g/dL (31.6-35.5); Mean Corpuscular Hemoglobin 29.4 pg (28.0-33.3); Mean Corpuscular Volume 93.4 fL (83.0-100.0); Mean Platelet Volume 10.8 fL (9.4-12.4); Monocytes # 1.1 K/mcL (0.0-1.3); Monocytes % 8.3 %; Platelet Count 136 K/mcL (140-400); Red Blood Count 3.64 M/mcL (4.19-5.50); Red Cell Distribution Width 15.2 % (11.5-14.5); Segmented Neutrophils % 72.1 %
[2018-06-14 04:46] LABS: Prothrombin Time 11.2 Seconds (9.4-12.1)
[2018-06-14 04:49] LABS: Activated Partial Thrombo Time 30.2 Seconds (26.0-36.0)
[2018-06-14] MEDS: *HR* Heparin 5,000 UNIT/ML VIAL SQ SCH ×2 (06:08→17:35)
--- NOTE | 2018-06-14 07:55 | Internal Med Progress Note ---
Hospitalist Progress Note - Encounter Date of Encounter: 06/14/18 Time of Encounter: 07:52 - Subjective Interval History: Patient with history of diabetes, morbid obesity, CAD with previous stents, stage IV hepatocellular cellular carcinoma patient admitted with a 1 week of chest pain also shortness of breath and about 22 pounds weight gain and increased lethargy evaluation ammonia level and 58 BNP 626 with moderate ascites and also moderate pleural effusion patient has a palliative care consult. Chest pain has resolved exam patient has some rales rhonchi has a abdominal protuberance had 3-4+ pitting edema of the lower extremity - Exam Vitals: Temp Pulse Resp BP Pulse Ox 98.0 F 80 18 154/81 100 06/14/18 07:49 06/14/18 07:49 06/14/18 07:49 06/14/18 07:49 06/14/18 07:49 Exam: Gen.: Vitals noted. No acute distress. Lethargic but does answer questions appropriately. Resting comfortably in bed HEENT: PERRL/EOMI, oropharynx clear, Normocephalic, atraumatic, moist mucous membranes Cardiac: RRR, no murmur, +S1/S2 Pulmonary: CTA bilaterally, no wheezes, rales or rhonchi, equal chest expansion. Diminished Lungs sounds in bases Abdomen: soft, nontender, BS noted, no guarding. Distended with possible fluid wave appreciated. Anasarca Extremities: 3+ BLE edema, nontender calf, no cyanosis or clubbing Neuro: A&Ox3, moves all extremities, no focal deficits Psych: Appropriate mood and behavior - Assessment and Plan (1) Chest pain Current Visit: Yes Status: Acute Assessment and Plan: troponin negative medical treatment (2) Congestive heart failure Current Visit: Yes Status: Acute Assessment and Plan: Presentation of congestive heart failure echo to see if diastolic or systolic heart failure start lasix 0 mg bid and restrict na and fluid intake (3) Pleural effusion Current Visit: Yes Status: Acute Assessment and Plan: consulted IR for tharacenthesis (4) Ascites Current Visit: Yes Status: Acute Assessment and Plan: preeti malignant IR consulted for paracenthesis (5) HTN (hypertension) Current Visit: No Status: Chronic Assessment and Plan: not well controlled will add imdur (6) Hepatocellular carcinoma Current Visit: Yes Status: Chronic (7) Diabetes Current Visit: Yes Status: Chronic Assessment and Plan: continue on slding scale (8) HTN (hypertension) Current Visit: Yes Status: Chronic - Time Spent with Patient Total time spent is greater than 50% in coordination of care (as documented) at patient's floor/unit and/or counseling patient: Internal Medicine: Result - Labs CBC & Chem 7: 06/14/18 04:14 06/13/18 18:00 Labs: Short CBC 06/14/18 Range/Units 04:14 WBC 13.8 H (4.3-11.1) K/mcL Hgb 10.7 L (12.9-16.9) g/dL Hct 34.0 L (37.5-50.1) % Plt Count 136 L (140-400) K/mcL Neutrophils # 10.0 H (1.6-8.9) K/mcL Cardiac Enzymes 06/14/18 Range/Units 04:14 Troponin I 0.09 H* (< 0.04) ng/mL - ABG Interpretation ABG results: PT/INR, D-dimer PT 11.2 Seconds (9.4-12.1) 06/14/18 04:14 Consult Discharge Plan - Plan [facility]: [facility] [Primary Care Provider[facility] - (1) Chest pain Qualifiers: Chest pain type: precordial pain Qualified Code(s): R07.2 - Precordial pain (2) Congestive heart failure Qualifiers: Heart failure type: unspecified Heart failure chronicity: unspecified Qualified Code(s): I50.9 - Heart failure, unspecified (4) Ascites Qualifiers: Ascites type: malignant Qualified Code(s): R18.0 - Malignant ascites (5) HTN (hypertension) Qualifiers: Hypertension type: essential hypertension Qualified Code(s): I10 - Essential (primary) hypertension (7) Diabetes Qualifiers: Diabetes mellitus type: type 2 Diabetes mellitus prison insulin use: with prison use Diabetes mellitus complication status: with kidney complications Diabetes mellitus complication detail: with chronic kidney disease Chronic kidney disease stage: stage 3 (moderate) Qualified Code(s): E11.22 - Type 2 diabetes mellitus with diabetic chronic kidney disease; N18.3 - Chronic kidney disease, stage 3 (moderate); Z79.4 - retirement (current) use of insulin (8) HTN (hypertension) Qualifiers: Hypertension type: essential hypertension Qualified Code(s): I10 - Essential (primary) hypertension
[2018-06-14] MEDS: Lactulose Oral Soln 20 GM/30 ML UDC PO SCH ×3 (08:39→20:13)
[2018-06-14] MEDS: Furosemide 40 MG/4 ML VIAL IVP SCH ×2 (08:39→17:35)
[2018-06-14] MEDS: GuaiFENesin Liq 200 MG/10 ML UDC PO SCH ×3 (08:40→20:12)
[2018-06-14] MEDS: Gabapentin 300 MG CAPSULE PO SCH (08:40)
[2018-06-14] MEDS: Isosorbide MONOnitrate (24 HR) 60 MG TAB.ER.24H PO SCH (08:40)
[2018-06-14] MEDS: Gentamicin Oint 15 GM TUBE TP SCH ×2 (08:40→22:19)
[2018-06-14] MEDS: Famotidine 20 MG TABLET PO SCH ×2 (08:40→17:37)
[2018-06-14] MEDS: Insulin LISPRO 300 UNITS/3 ML VIAL SQ SCH ×3 (08:41→17:34)
[2018-06-14] MEDS ORDERED: DICLOFENAC SODIUM TP SCH (09:00)
[2018-06-14 12:33] LABS: Alanine Aminotransferase 19 Units/L (7-52); Albumin 2.9 g/dL (3.5-5.7); Albumin/Globulin Ratio 0.9 (1.1-2.2); Alkaline Phosphatase 147 Units/L (34-104); Aspartate Amino Transferase 36 Units/L (13-39); Bilirubin,Total 0.6 mg/dL (0.3-1.0); Globulin 3.2 g/dL (2.4-3.5); Lipase 14 Units/L (11-82); Total Protein 6.1 g/dL (6.4-8.9)
--- NOTE | 2018-06-14 13:07 | IR Procedure Note ---
Date of procedure: 06/14/18 Consent Obtained: Verbal consent, Written consent Local anesthetic: Lidocaine 1% Indications: ascites and pleural effusion Procedure Performed: paracentesis and R thoracentesis Was there an assistant paralegal present: No Estimated blood loss (cc): 1 Complications: None; Tolerated procedure well Specimen: 2.3 L ascites and 600 mL pleural fluid aspirated
--- NOTE | 2018-06-14 14:12 | Palliative - Consult Note ---
Date of Encounter: 06/14/18 Time of Encounter: 13:00 - Assessment and Plan (1) Ascites Current Visit: Yes Status: Acute Assessment and plan: IR performed Paracentesis today; 2.3L off. Qualifiers: Ascites type: malignant Qualified Code(s): R18.0 - Malignant ascites (2) Chest pain Current Visit: Yes Status: Acute Assessment and plan: Denies chest pain during assessment. Qualifiers: Chest pain type: precordial pain Qualified Code(s): R07.2 - Precordial pain (3) Congestive heart failure Current Visit: Yes Status: Acute Assessment and plan: BNP elevated on admission. Qualifiers: Heart failure type: unspecified Heart failure chronicity: unspecified Qualified Code(s): I50.9 - Heart failure, unspecified (4) Liver cancer Current Visit: Yes Status: Acute Assessment and plan: Patient is not pursuing any type of treatment for liver cancer. Qualifiers: Liver malignancy type: unspecified liver malignancy Qualified Code(s): C22.9 - Malignant neoplasm of liver, not specified as primary or secondary (5) Pleural effusion Current Visit: Yes Status: Acute (6) Serum ammonia increased Current Visit: Yes Status: Acute Assessment and plan: Ammonia 58; Lactulose ordered. (7) Goals of care, counseling/discussion Current Visit: Yes Status: Acute Assessment and plan: Met with patient's and daughter regarding goals of care. Patient lives at home with his . Already a patient of [facility]. Plan to return home with [facility]. Palliative care follow at a distance for any updated questions family may have; thank you for allowing us to be a part of your patient's care. No weekend coverage; will follow up on Sunday. Palliative-CN HPI - Data of Consult Patient: new to practice Consult date: 06/14/18 Requesting Physician: Eddie Monreal MD [facility] Care Provider[facility] - Consult Narrative Palliative Care/Comfort Measures: Palliative care Reason for consult: Stage 4 Pancreatic and Liver Cancer History of present illness: Mr. Vieyra is a 77 year old male Arrived to [facility] ER for dyspnea, chest pain, and elevated troponins on 06/13/18. Patient reported he had been short of breath and chest pressure times 1 week. PMH: CHF, Liver Cancer, Stage 4 Hepatocellular carcinoma, HTN, CAD, DM, and HLD. CT of chest/abdomen/pelvis without contrast showing: Cholelithiasis without CT evidence for acute cholecystitis or biliary dilatation; Moderate-sized pleural effusions and dependent atelectasis; Previously identified metastatic liver lesions are not visualized; Moderate size ascites; Moderate stool burden. Patient admitted and medically managed for Chest pain, Pleural effusion, CHF, Ascites, HTN, DM, and Hepatocellular Cancer. Ultrasound guided paracentesis performed at bedside by IR ; 2.3L was removed. Palliative Consult for Stage 4 cancer, pancreatic and liver. Patient sitting up eating lung upon arrival for assessment. Patient is awake, alert and oriented times 3. Denies shortness of breath, anxiety, nausea, vomiting, or constipation. Patient reports only site of pain is where needle was just pulled out by IR. Patients , daughter, and granddaughter present at bedside. CC: Eddie Monreal MD Past Med Surg Social Fam HX - Past Medical History Medical history: cancer, coronary artery disease, diabetes, hyperlipidemia, hypertension, other Additional medical history: pancreas and liver cancer Psychiatric history: no psych history - Past Surgical History Surgical History: angioplasty/stent Additional surgical history: 7 stents - Social History Smoking Status: Former smoker Smokeless Tobacco Status: No Alcohol use: none Drug use: none - Family History Father Adopted: No Family Member Ethnicity: Non- Living Status: Hx Family Cardiac Disorders: Yes Hx Family Respiratory Disorders: Yes Hx Family Cancer: No Hx Family GI Disorders: No Hx Family Endocrine Disorder: No Hx Family Neuromuscular Disorders: No Hx Family Neurologic Disorders: No Hx Family HEENT Disorders: No Hx Family Autoimmune Disorders: No Mother Adopted: No Family Member Ethnicity: Non- Living Status: Hx Family Cardiac Disorders: Yes Hx Family Respiratory Disorders: Yes Hx Family Cancer: No Hx Family GI Disorders: No Hx Family Endocrine Disorder: Yes Hx Family Neuromuscular Disorders: No Hx Family Neurologic Disorders: No Hx Family HEENT Disorders: No Hx Family Autoimmune Disorders: No Medications and Allergies Docusate Sodium 300 mg PO HS 04/25/17 [History] Collagenase Oint [Santyl] 1 appl TP BID 10/03/17 [History] Gabapentin [Neurontin] 600 mg PO DAILY 10/03/17 [History] Insulin ASPART [NovoLOG] 50 - 80 unit SQ BID 10/03/17 [History] Insulin Glargine [Lantus] 100 unit SQ BID 10/03/17 [History] Clopidogrel [Plavix] 75 mg PO DAILY 10/10/17 [History] Febuxostat [Uloric] 40 mg PO DAILY 10/10/17 [History] Gentamicin Oint [Garamycin] 1 appl TP BID 10/10/17 [History] Ondansetron [Zofran] 8 mg PO TID PRN 10/10/17 [History] metOLazone [Zaroxolyn] 5 mg PO MOTH 10/10/17 [History] Albuterol Sulfate [Albuterol Inhaler] 2 puff IH Q6H PRN 06/13/18 [History] Aspirin [Lo-Dose Aspirin EC] 81 mg PO DAILY 06/13/18 [History] Diclofenac Sodium [Voltaren] 1 appl TP DAILY 06/13/18 [History] Glucagon,Human Recombinant [Glucagon Emergency Kit] 1 mg IJ AD PRN 06/13/18 [ History] Guaifenesin [Mucus Relief] 400 mg PO TID 06/13/18 [History] Lactulose 20 gm PO TID 06/13/18 [History] Multivitamin [One Daily Multivitamin] 1 tab PO DAILY 06/13/18 [History] OxyCODONE Immed Rel [Roxicodone 10 MG] 10 mg PO Q4H PRN 06/13/18 [History] Terbinafine HCl [Lamisil At] 1 appl TP BID 06/13/18 [History] predniSONE [PredniSONE] 5 mg PO AD 06/13/18 [History] raNITIdine HCl [Zantac] 150 mg PO BID 06/13/18 [History] 3 Allergy/AdvReac Type Severity Reaction Status Date / Time morphine Allergy Difficulty Verified 06/13/18 19:48 Breathing shellfish derived Allergy Difficulty Verified 06/13/18 19:48 Breathing atorvastatin [From Lipitor] AdvReac Muscle Pain Verified 06/13/18 19:48 hydrocodone [From Vicodin] AdvReac Confusion Verified 06/13/18 19:48 ibuprofen [From Motrin] AdvReac Gastrointestinal Verified 06/13/18 19:48 Upset tramadol AdvReac Confusion Verified 06/13/18 19:48 - Constitutional Constitutional ROS PAL: fatigue, lethargy - Cardiovascular Cardiovascular ROS: chest pain, chest pain at rest, chest pain with activity, dyspnea on exertion, edema, pedal edema - Respiratory Respiratory: dyspnea, dyspnea on exertion, chest congestion, no hemoptysis - Gastrointestinal Gastrointestinal: bloating, constipation, no abdominal pain, no loose stools, no nausea, no vomiting - Genitourinary Genitourinary ROS male: no difficulty urinating, no flank pain, no urinary frequency, no urinary hesitancy, no urinary incontinence, no urinary urgency - Musculoskeletal Musculoskeletal ROS IM: no back pain - Integumentary ROS Integumentary: wounds - Neurological Neurological ROS: dizziness - Psychiatric Psychiatric general PM: confusion Palliative Care-Exam - Constitutional Vitals: Temp Pulse Resp BP Pulse Ox 98.0 F 80 18 154/81 100 06/14/18 07:49 06/14/18 07:49 06/14/18 07:49 06/14/18 07:49 06/14/18 08:41 General appearance: Present: cooperative, no acute distress - Head Head Exam: Present: atraumatic, normal inspection - Eye Eye exam: Present: EOMI, normal appearance, PERRL, conjuntiva pink. Absent: periorbital swelling, periorbital tenderness Pupils: Present: normal accommodation, PERRL - ENT ENT exam: Present: mucous membranes moist, normal external ear exam - Expanded ENT Exam Mouth Exam: Absent: drooling - Neck Neck exam: Present: full ROM, normal inspection - Respiratory Respiratory exam: Present: wheezes. Absent: accessory muscle use, tachypnea - Expanded Respiratory Exam Location: wheezes: Right, Lower - Expanded Cardiovascular Exam Peripheral pulses: 1+: Radial (L), Radial (R), Posterior Tibialis (L), Dorsalis Pedis (L) PM - GI/Abdominal Exam GI/Abdominal exam: Present: diminished bowel sounds, distended, firm. Absent: tenderness - Expanded GI/Abdominal Exam GI/Abdominal exam: Present: ascites - Rectal Rectal Exam: Present: deferred - Neurological Exam Neurological exam: Present: alert, oriented X3, strengths equal and symetr throughout. Absent: altered - Expanded Neurological Exam Cranial nerves: EOM's intact: Normal Coma Scale Eye Opening: Spontaneous Coma Scale Motor Response: Obeys Commands Coma Scale Verbal Response: Oriented Coma Scale Total: 15 - Psychiatric Psychiatric exam: Present: normal affect, normal mood - Skin Skin exam: Present: dry, intact, normal color, warm. Absent: pallor Internal Medicine - CN: Reslt - Labs CBC & Chem 7: 06/14/18 04:14 06/13/18 18:00 - ABG Interpretation ABG results: PT/INR, D-dimer PT 11.2 Seconds (9.4-12.1) 06/14/18 04:14 - Impressions Impressions Chest X-Ray 06/14/18 12:50 IMPRESSION: Near complete resolution of right pleural effusion, status post thoracentesis. No pneumothorax. Stable small left pleural effusion and basilar atelectasis. D/ / Wilder España MD / Wilder España MD Interpreting Provider: Wilder España MD Consult Discharge Plan - Plan [facility]errals: [facility] [Primary Care Provider] - Palliative Quality Palliative Quality: Screen for Code Status: Yes, Screen for Goals of Care: Yes, Screen for Pain: Yes, If Pain Regimen Started, Initiate Bowel Regimen: Yes, Screen for Nausea/Vomitting: Yes
[2018-06-14] MEDS ORDERED: Insulin LISPRO 300 UNITS/3 ML VIAL SQ SCH (21:00)
[2018-06-14 21:23] LABS: RBC,Pleural Fluid < 0.002 M/mcL
[2018-06-14 21:27] LABS: RBC,Peritoneal Fluid < 0.002 M/mcL
[2018-06-14 21:30] LABS: Appearance of Peritoneal Fl HAZY (Clear)
[2018-06-14 21:31] LABS: Appearance of Pleural Fl Hazy (Clear)
[2018-06-14 21:50] LABS: LDH,Peritoneal Fluid 48 Units/L (No Ref Range); Total Protein,Peritoneal Fluid < 3.0 g/dL (No Ref Range)
[2018-06-15] MEDS: *HR* Heparin 5,000 UNIT/ML VIAL SQ SCH (05:11)
[2018-06-15] MEDS: Gentamicin Oint 15 GM TUBE TP SCH (08:25)
[2018-06-15] MEDS: GuaiFENesin Liq 200 MG/10 ML UDC PO SCH (08:27)
[2018-06-15] MEDS: Lactulose Oral Soln 20 GM/30 ML UDC PO SCH (08:27)
[2018-06-15] MEDS: Gabapentin 300 MG CAPSULE PO SCH (08:27)
[2018-06-15] MEDS: Insulin LISPRO 300 UNITS/3 ML VIAL SQ SCH ×2 (08:28→12:00)
[2018-06-15] MEDS: Furosemide 40 MG/4 ML VIAL IVP SCH (08:28)
[2018-06-15] MEDS: Isosorbide MONOnitrate (24 HR) 60 MG TAB.ER.24H PO SCH (08:28)
[2018-06-15] MEDS: Famotidine 20 MG TABLET PO SCH (08:28)
--- NOTE | 2018-06-15 09:10 | Electrocardiograph Report ---
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
[2018-06-15 11:06] VITALS: BP 144/66
--- NOTE | 2018-06-15 11:36 | Internal Med Progress Note ---
Hospitalist Progress Note - Encounter Date of Encounter: 06/15/18 - Subjective Interval History: Patient with history of diabetes, morbid obesity, CAD with previous stents, stage IV hepatocellular cellular carcinoma patient admitted with a 1 week of chest pain also shortness of breath and about 22 pounds weight gain and increased lethargy evaluation ammonia level and 58 BNP 626 with moderate ascites and also moderate pleural effusion patient has a palliative care consult. Chest pain has resolved exam patient has some rales rhonchi has a abdominal protuberance had 3-4+ pitting edema of the lower extremity - Exam Vitals: Temp Pulse Resp BP Pulse Ox 97.5 F L 81 17 144/66 99 06/15/18 11:00 06/15/18 11:00 06/15/18 11:00 06/15/18 11:00 06/15/18 11:00 - Time Spent with Patient Total time spent is greater than 50% in coordination of care (as documented) at patient's floor/unit and/or counseling patient: Internal Medicine: Result - Labs CBC & Chem 7: 06/14/18 04:14 06/13/18 18:00 - ABG Interpretation ABG results: PT/INR, D-dimer PT 11.2 Seconds (9.4-12.1) 06/14/18 04:14 - Impressions Impressions Chest X-Ray 06/14/18 12:50 IMPRESSION: Near complete resolution of right pleural effusion, status post thoracentesis. No pneumothorax. Stable small left pleural effusion and basilar atelectasis. D/ / Wilder España MD / Wilder España MD Interpreting Provider: Wilder España MD Consult Discharge Plan - Plan Referrals: [facility] [Primary Care Provider] -
--- NOTE | 2018-06-15 12:00 | Discharge Summary ---
- NOTES TO OUTPATIENT PROVIDER Notes to Outpatient Provider: 1. Follow up with PCP in 3-5 days. 2. Check BMP at next clinic visit. 3. Please follow up on cytology results Orders not resulted at time of discharge: Pending orders 06/14/18 12:17 Cytology [PTH] Routine Date of Encounter: 06/15/18 Time of Encounter: 11:57 - Discharge Diagnosis (1) Pleural effusion Priority: Primary Status: Acute Assessment and Plan: 77M with metastatic liver cancer was admitted with weakness, confusion, increased somnolence presented with dyspnea, chest pain and 20 lb weight gain, found to have pleural effusion and ascites. He underwent right sided thoracentesis with 600 ml of fluid drained. Dyspnea improved. He is on baseline 4 L/NC. TTE was checked which showed normal EF and normal filling pressures. Patient has been on home Lasix 80 mg PO BID with metolazone to be taken twice a week before Lasix, he was instructed to continue the same and call PCP if he gains weight. (2) Ascites Priority: Primary Status: Acute Assessment and Plan: likely due to CLD, nw s/p paracentesis of 2.6 L of fluid on 06/14/18, with improvement in symptoms. Qualifiers: Ascites type: malignant Qualified Code(s): R18.0 - Malignant ascites (3) Liver cancer Priority: Primary Status: Acute Assessment and Plan: patient has opted for palliative treatment, and will return to [facility] Qualifiers: Liver malignancy type: unspecified liver malignancy Qualified Code(s): C22.9 - Malignant neoplasm of liver, not specified as primary or secondary (4) Diabetes Priority: Secondary Status: Chronic Assessment and Plan: managed with insulin, remained stable. No changes in home dose of insulin was made. 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 Diabetes mellitus complication status: with kidney complications Diabetes mellitus complication detail: with chronic kidney disease Chronic kidney disease stage: stage 3 (moderate) Qualified Code(s): E11.22 - Type 2 diabetes mellitus with diabetic chronic kidney disease; N18.3 - Chronic kidney disease, stage 3 (moderate); Z79.4 - snf (current) use of insulin (5) HTN (hypertension) Priority: Secondary Status: Chronic Assessment and Plan: uncontrolled, ImDur was started Qualifiers: Hypertension type: essential hypertension Qualified Code(s): I10 - Essential (primary) hypertension Hospital course: Mr. Vieyra is a 77 year old male with medical problems and hospital course as above Discharge discussed with: patient, family, nurse - Time Spent with Patient Total time spent providing and/or coordinating discharge services: Greater than 30 minutes - Discharge Medications Prescriptions: Isosorbide MONOnitrate (24 HR) [Imdur] 60 mg PO DAILY #30 tab.er.24h Home Medications: Docusate Sodium 300 mg PO HS 04/25/17 [History] Collagenase Oint [Santyl] 1 appl TP BID 10/03/17 [History] Gabapentin [Neurontin] 600 mg PO DAILY 10/03/17 [History] Insulin ASPART [NovoLOG] 50 - 80 unit SQ BID 10/03/17 [History] Insulin Glargine [Lantus] 100 unit SQ BID 10/03/17 [History] Clopidogrel [Plavix] 75 mg PO DAILY 10/10/17 [History] Febuxostat [Uloric] 40 mg PO DAILY 10/10/17 [History] Gentamicin Oint [Garamycin] 1 appl TP BID 10/10/17 [History] Ondansetron [Zofran] 8 mg PO TID PRN 10/10/17 [History] metOLazone [Zaroxolyn] 5 mg PO MOTH 10/10/17 [History] Albuterol Sulfate [Albuterol Inhaler] 2 puff IH Q6H PRN 06/13/18 [History] Aspirin [Lo-Dose Aspirin EC] 81 mg PO DAILY 06/13/18 [History] Diclofenac Sodium [Voltaren] 1 appl TP DAILY 06/13/18 [History] Glucagon,Human Recombinant [Glucagon Emergency Kit] 1 mg IJ AD PRN 06/13/18 [ History] Guaifenesin [Mucus Relief] 400 mg PO TID 06/13/18 [History] Lactulose 20 gm PO TID 06/13/18 [History] Multivitamin [One Daily Multivitamin] 1 tab PO DAILY 06/13/18 [History] OxyCODONE Immed Rel [Roxicodone 10 MG] 10 mg PO Q4H PRN 06/13/18 [History] Terbinafine HCl [Lamisil At] 1 appl TP BID 06/13/18 [History] raNITIdine HCl [Zantac] 150 mg PO BID 06/13/18 [History] Furosemide 80 mg PO BID 06/15/18 [History] Isosorbide MONOnitrate (24 HR) [Imdur] 60 mg PO DAILY #30 tab.er.24h 06/15/18 [ Rx] Allergies/Adverse Reactions: 3 Allergy/AdvReac Type Severity Reaction Status Date / Time morphine Allergy Difficulty Verified 06/13/18 19:48 Breathing shellfish derived Allergy Difficulty Verified 06/13/18 19:48 Breathing atorvastatin [From Lipitor] AdvReac Muscle Pain Verified 06/13/18 19:48 hydrocodone [From Vicodin] AdvReac Confusion Verified 06/13/18 19:48 ibuprofen [From Motrin] AdvReac Gastrointestinal Verified 06/13/18 19:48 Upset tramadol AdvReac Confusion Verified 06/13/18 19:48 Date of admission: 06/14/18 10:01 [facility] Consults: palliative care IR for paracentesis and throacentesis Discharging clinician: Nilson Rivas Anticipated date of discharge: 06/15/18 - Constitutional Vitals: Temp Pulse Resp BP Pulse Ox 97.5 F L 81 17 144/66 99 06/15/18 11:00 06/15/18 11:00 06/15/18 11:00 06/15/18 11:00 06/15/18 11:00 General appearance: Present: cooperative, A&O X 3, pleasant, no acute distress, answers questions appropriately Exam: Gen.: Vitals noted. No acute distress. Appears comfortable. HEENT: PERRL/EOMI, oropharynx clear, Normocephalic, atraumatic, moist mucous membranes Cardiac: RRR, no murmur, +S1/S2 Pulmonary: CTA bilaterally, no wheezes, rales or rhonchi. Diminished Lungs sounds in bases Abdomen: soft, nontender, BS noted, no guarding. Extremities: 3+ BLE edema, non-tender calf, no cyanosis or clubbing Neuro: A&Ox3, moves all extremities, no focal deficits Psych: Appropriate mood and behavior - Patient Status Disposition: Hospice - Home Condition: Fair - Discharge Instructions Follow Up With: [facility] [Primary Care Provider] - - Diet and Activity Activity: increase activity as tolerated Diet: advance to your usual diet
--- NOTE | 2018-06-15 16:55 | Physician Discharge Referral ---
Home Health/Hosp Referral Info Transfer to: Hospice Attending Provider: Nilson Rivas Provider in Charge Post Discharge: PCP - Diagnosis (1) Pleural effusion Priority: Secondary Status: Acute (2) Ascites Priority: Secondary Status: Acute (3) Liver cancer Priority: Primary Status: Acute (4) Diabetes Status: Chronic (5) HTN (hypertension) Status: Chronic - Respiratory Orders Oxygen / L per min (4) Smoking Cessation: Smoking cessation has been advised. For more information, call the [place] Tobacco Quit Line at 1-552-TGOI-NOW. - Diet/Nutrition Diet/Nutrition Orders: No Added Salt (AISHA), Cardiac - Activity Activity Orders: Up ad remi (with fall precautions) - Transfer Medications Prescriptions: Isosorbide MONOnitrate (24 HR) [Imdur] 60 mg PO DAILY #30 tab.er.24h Home Medications: Docusate Sodium 300 mg PO HS 04/25/17 [History] Collagenase Oint [Santyl] 1 appl TP BID 10/03/17 [History] Gabapentin [Neurontin] 600 mg PO DAILY 10/03/17 [History] Insulin ASPART [NovoLOG] 50 - 80 unit SQ BID 10/03/17 [History] Insulin Glargine [Lantus] 100 unit SQ BID 10/03/17 [History] Clopidogrel [Plavix] 75 mg PO DAILY 10/10/17 [History] Febuxostat [Uloric] 40 mg PO DAILY 10/10/17 [History] Gentamicin Oint [Garamycin] 1 appl TP BID 10/10/17 [History] Ondansetron [Zofran] 8 mg PO TID PRN 10/10/17 [History] metOLazone [Zaroxolyn] 5 mg PO MOTH 10/10/17 [History] Albuterol Sulfate [Albuterol Inhaler] 2 puff IH Q6H PRN 06/13/18 [History] Aspirin [Lo-Dose Aspirin EC] 81 mg PO DAILY 06/13/18 [History] Diclofenac Sodium [Voltaren] 1 appl TP DAILY 06/13/18 [History] Glucagon,Human Recombinant [Glucagon Emergency Kit] 1 mg IJ AD PRN 06/13/18 [ History] Guaifenesin [Mucus Relief] 400 mg PO TID 06/13/18 [History] Lactulose 20 gm PO TID 08/23/18 [History] Multivitamin [One Daily Multivitamin] 1 tab PO DAILY 06/13/18 [History] OxyCODONE Immed Rel [Roxicodone 10 MG] 10 mg PO Q4H PRN 06/13/18 [History] Terbinafine HCl [Lamisil At] 1 appl TP BID 06/13/18 [History] raNITIdine HCl [Zantac] 150 mg PO BID 06/13/18 [History] Furosemide 80 mg PO BID 06/15/18 [History] Isosorbide MONOnitrate (24 HR) [Imdur] 60 mg PO DAILY #30 tab.er.24h 06/15/18 [ Rx] Allergies/Adverse Reactions: 3 Allergy/AdvReac Type Severity Reaction Status Date / Time morphine Allergy Difficulty Verified 06/13/18 19:48 Breathing shellfish derived Allergy Difficulty Verified 06/13/18 19:48 Breathing atorvastatin [From Lipitor] AdvReac Muscle Pain Verified 06/13/18 19:48 hydrocodone [From Vicodin] AdvReac Confusion Verified 06/13/18 19:48 ibuprofen [From Motrin] AdvReac Gastrointestinal Verified 06/13/18 19:48 Upset tramadol AdvReac Confusion Verified 06/13/18 19:48 Certification: Further, I certify that my clinical findings support that this patient is homebound (i.e. absences from home require considerable and taxing effort and are for medical reasons or yazidi services or infrequently or short duration when for other reasons) because: Homebound Reason: Severity of cardiac or pulmonary status limits activity tolerance Attestation: My signature below is to certify that this patient is under my care and that I, or nurse practitioner, or a physician's anesthesiologists' assistant working with me, has a face-to -face encounter with this patient.
== END 2018-06-15 13:52 | disposition hospice, home (50) | DRG 436 ==
LOC: EMEROOARM 17:21 → 2ANU 17:21
PROVIDERS: ADMIT Pediatrics; ATTEND Pediatrics

== ENCOUNTER 2018-06-26 17:20 | Inpatient (IN) ==
--- NOTE | 2018-06-26 17:37 | Emergency Department Note ---
Disposition Clinical Impression: Hepatocellular carcinoma, Pleural effusion, SOB (shortness of breath) Ascites Qualifiers: Ascites type: other type Qualified Code(s): R18.8 - Other ascites Disposition: Admitted As Inpatient Condition: Fair [facility]Primary Care Provider[facility] - Forms: ED Satisfaction Letter General Adult HPI - General Chief complaint: ED Shortness of Breath/Dyspnea Stated complaint: SOB Time Seen by Provider: 06/26/18 17:23 Source: patient Mode of arrival: EMS Limitations: no limitations Nursing Notes Reviewed: Yes Vital Signs Reviewed: Yes - History of Present Illness HPI Narrative: 78-year-old male with significant past medical history of metastatic hepatocellular carcinoma currently on hospice presenting to the emergency department chief complaint shortness of breath. Patient was seen at the [facility] earlier today and transferred here for further evaluation. Approximately 2 weeks ago patient was admitted and had a paracentesis and approximately 2 L of fluid was taken off. At this time patient denies any fevers, dizziness, headache or chest pain. States he has had progressive shortness of breath over the past 2-3 months. Patient states his hospice care comes approximately once a week. - Related Data Home Medications Medication Instructions Recorded Confirmed Docusate Sodium 300 mg PO HS 04/25/17 06/13/18 Collagenase Oint [Santyl] 1 appl TP BID 10/03/17 06/13/18 Gabapentin [Neurontin] 600 mg PO DAILY 10/03/17 06/13/18 Insulin ASPART [NovoLOG] 50 - 80 unit SQ BID 10/03/17 06/13/18 Insulin Glargine [Lantus] 100 unit SQ BID 10/03/17 06/13/18 Clopidogrel [Plavix] 75 mg PO DAILY 10/10/17 06/13/18 Febuxostat [Uloric] 40 mg PO DAILY 10/10/17 06/13/18 Gentamicin Oint [Garamycin] 1 appl TP BID 10/10/17 06/13/18 Ondansetron [Zofran] 8 mg PO TID PRN 10/10/17 06/13/18 metOLazone [Zaroxolyn] 5 mg PO MOTH 10/10/17 06/13/18 Albuterol Sulfate [Albuterol 2 puff IH Q6H PRN 06/13/18 06/13/18 Inhaler] Aspirin [Lo-Dose Aspirin EC] 81 mg PO DAILY 06/13/18 06/13/18 Diclofenac Sodium [Voltaren] 1 appl TP DAILY 06/13/18 06/13/18 Glucagon,Human Recombinant 1 mg IJ AD PRN 06/13/18 06/13/18 [Glucagon Emergency Kit] Guaifenesin [Mucus Relief] 400 mg PO TID 06/13/18 06/13/18 Lactulose 20 gm PO TID 06/13/18 06/13/18 Multivitamin [One Daily 1 tab PO DAILY 06/13/18 06/13/18 Multivitamin] OxyCODONE Immed Rel [Roxicodone 10 10 mg PO Q4H PRN 06/13/18 06/13/18 MG] Terbinafine HCl [Lamisil At] 1 appl TP BID 06/13/18 06/13/18 raNITIdine HCl [Zantac] 150 mg PO BID 06/13/18 06/13/18 Furosemide 80 mg PO BID 06/15/18 06/15/18 Previous Rx's Medication Instructions Recorded Isosorbide MONOnitrate (24 HR) 60 mg PO DAILY #30 tab.er.24h 06/15/18 [Imdur] Allergies Allergy/AdvReac Type Severity Reaction Status Date / Time morphine Allergy Difficulty Verified 06/13/18 19:48 Breathing shellfish derived Allergy Difficulty Verified 06/13/18 19:48 Breathing atorvastatin [From Lipitor] AdvReac Muscle Pain Verified 06/13/18 19:48 hydrocodone [From Vicodin] AdvReac Confusion Verified 06/13/18 19:48 ibuprofen [From Motrin] AdvReac Gastrointestinal Verified 06/13/18 19:48 Upset tramadol AdvReac Confusion Verified 06/13/18 19:48 All systems ED: reviewed and negative except as stated. Constitutional: Denies: fever, chills, weakness Eyes: Reports: as per HPI ENT ED: Reports: as per HPI Cardiovascular: Denies: chest pain, palpitations Respiratory: Reports: dyspnea. Denies: wheezes, hemoptysis Gastrointestinal: Denies: abdominal pain, nausea, vomiting Genitourinary: Reports: as per HPI Musculoskeletal: Reports: as per HPI Integumentary: Reports: as per HPI Neurological: Denies: weakness, numbness, paresthesias Psychiatric: Reports: as per HPI Endocrine: Reports: as per HPI Hematological/Lymphatic: Reports: as per HPI Allergic/Immunologic: Reports: as per HPI Past Medical History - Past Medical History Attestation: Yes The following information was validated with the patient. Medical history: Reports: cancer, coronary artery disease, diabetes, hyperlipidemia, hypertension, other Surgical history: Reports: angioplasty/stent Psychiatric history: Reports: no psych history - Social History Smoking Status: Former smoker Smokeless Tobacco Status: No Alcohol use: Reports: none Drug use: Reports: none Physical Exam - General Limitations: no limitations General appearance: alert, in no apparent distress - Head Head exam: atraumatic, normocephalic, normal inspection - Eye Eye exam: Present: normal appearance. Absent: scleral icterus, conjunctival injection - ENT ENT exam: normal exam, mucous membranes moist - Neck Neck exam: Present: normal inspection, full ROM. Absent: tenderness, meningismus - Chest Chest inspection: Present: normal inspection, symmetric chest wall rise. Absent : tenderness, rash - Respiratory Respiratory exam: Present: normal lung sounds bilaterally. Absent: respiratory distress, wheezes - Cardiovascular Cardiovascular exam: Present: regular rate, normal rhythm, normal heart sounds - Abdominal Exam Abdominal exam: Present: Non-Tender, distention. Absent: guarding, rebound, rigidity - Extremities Exam Extremities exam: Present: other (3+ pitting edema bilateral lower extremities) - Neurological Exam Neurological exam: Present: alert - Psychiatric Psychiatric exam: Present: normal affect - Skin Skin exam: Present: warm Course Course Narrative: 78-year-old male presenting for her concern for ascites. Patient has known metastatic hepatocellular carcinoma. Currently in hospice. Patient was sent over with a two-view chest x-ray that showed mild to moderate bilateral pleural effusions. At this time patient denies any symptoms except shortness of breath. He is alert and responding appropriately in the room. Vital signs stable. Oxygen saturation 100%. We will obtain basic laboratory analysis including CBC, BMP, ammonia and troponin. Disposition pending results. Will also consult with social work to determine if we can provide the patient with more frequent hospice care at home. At this time patient states he does not want to stay in the hospital. - Reevaluation(s) Reevaluation #1: My attending Dr. Rob spoke at length with family members and patient. Patient agrees to be admitted for possible pleuro-vac drain for palliative reasons. Patient is alert and responding appropriately in the room. Vital signs of been stable. At this time will page the hospitalist for admission and further interventional procedures for palliative care. Reevaluation #2: Patient was accepted by the hospitalist. We will plan to admit him to the floor for further palliative care at this time. Vital Signs Temperature 98.2 F 06/26/18 17:23 Pulse Rate 72 06/26/18 17:23 Respiratory Rate 18 06/26/18 17:23 Blood Pressure 132/75 06/26/18 17:23 O2 Sat by Pulse Oximetry 100 06/26/18 17:23 Temperature 98.2 F 06/26/18 17:23 Pulse Rate 72 06/26/18 17:23 Respiratory Rate 18 06/26/18 17:23 Blood Pressure 132/75 06/26/18 17:23 O2 Sat by Pulse Oximetry 100 06/26/18 17:38 Oxygen Delivery Oxygen Delivery Nasal Cannula Medical Decision Making - Lab Data Result diagrams: 06/26/18 18:03 06/26/18 18:03 Lab Results 06/26/18 06/26/18 06/26/18 Range/Units 18:03 18:03 18:03 WBC 9.2 (4.3-11.1) K/mcL RBC 3.75 L (4.19-5.50) M/mcL Hgb 11.3 L (12.9-16.9) g/dL Hct 35.3 L (37.5-50.1) % MCV 94.1 (83.0-100.0) fL MCH 30.1 (28.0-33.3) pg MCHC 32.0 (31.6-35.5) g/dL RDW 15.6 H (11.5-14.5) % Plt Count 178 (140-400) K/mcL MPV 10.8 (9.4-12.4) fL Immature Gran % 0.3 (0-4) % Seg Neutrophils % 70.0 % Lymphocytes % 16.5 % Monocytes % 8.6 % Eosinophils % 4.1 % Basophils % 0.5 % Neutrophils # 6.5 (1.6-8.9) K/mcL Lymphocytes # 1.5 (0.6-4.6) K/mcL Monocytes # 0.8 (0.0-1.3) K/mcL Eosinophils # 0.4 (0.0-0.6) K/mcL Basophils # 0.1 (0.0-0.2) K/mcL Sodium 134 L (136-145) mEq/L Potassium 4.5 (3.5-5.1) mEq/L Chloride 99 (98-107) mEq/L Carbon Dioxide 30 H (23-29) mEq/L BUN 26 H (8-23) mg/dL Creatinine 1.54 H (0.70-1.30) mg/dL Est GFR ( Amer) 53 L (> 60) Est GFR (Non-Af Amer) 44 L (> 60) BUN/Creatinine Ratio 17 (6-26) Glucose 434 H (70-105) mg/dL Calculated Osmolality 301 H (280-300) Lactic Acid 2.7 H (0.5-2.2) mmol/L Calcium 8.3 L (8.6-10.3) mg/dL Ammonia (16-53) mcmol/L Troponin I < 0.03 (< 0.04) ng/mL B-Natriuretic Peptide (Less than 100) pg/mL 06/26/18 06/26/18 Range/Units 18:03 18:03 WBC (4.3-11.1) K/mcL RBC (4.19-5.50) M/mcL Hgb (12.9-16.9) g/dL Hct (37.5-50.1) % MCV (83.0-100.0) fL MCH (28.0-33.3) pg MCHC (31.6-35.5) g/dL RDW (11.5-14.5) % Plt Count (140-400) K/mcL MPV (9.4-12.4) fL Immature Gran % (0-4) % Seg Neutrophils % % Lymphocytes % % Monocytes % % Eosinophils % % Basophils % % Neutrophils # (1.6-8.9) K/mcL Lymphocytes # (0.6-4.6) K/mcL Monocytes # (0.0-1.3) K/mcL Eosinophils # (0.0-0.6) K/mcL Basophils # (0.0-0.2) K/mcL Sodium (136-145) mEq/L Potassium (3.5-5.1) mEq/L Chloride (98-107) mEq/L Carbon Dioxide (23-29) mEq/L BUN (8-23) mg/dL Creatinine (0.70-1.30) mg/dL Est GFR ( Amer) (> 60) Est GFR (Non-Af Amer) (> 60) BUN/Creatinine Ratio (6-26) Glucose (70-105) mg/dL Calculated Osmolality (280-300) Lactic Acid (0.5-2.2) mmol/L Calcium (8.6-10.3) mg/dL Ammonia 67 H (16-53) mcmol/L Troponin I (< 0.04) ng/mL B-Natriuretic Peptide 192 H (Less than 100) pg/mL - EKG Data EKG #1 EKG attestation: Yes I reviewed and interpreted this EKG. EKG results narrative: Sinus rhythm. 72 beats for minute. AK interval 153, QRS 95, QTC 484. No sign of acute ST segment elevation or ischemia.
--- NOTE | 2018-06-26 18:14 | Emergency Department Note ---
Disposition Clinical Impression: Hepatocellular carcinoma, Pleural effusion, Ascites, SOB (shortness of breath) Disposition: Still a Patient [facility]errals: [facility] [Primary Care Provider] - Forms: ED Satisfaction Letter General Adult HPI - General Chief complaint: ED Shortness of Breath/Dyspnea Stated complaint: SOB Time Seen by Provider: 06/26/18 17:23 Source: EMS Limitations: physical limitation - History of Present Illness Pain Scale: 0 - Related Data Home Medications Medication Instructions Recorded Confirmed Docusate Sodium 300 mg PO HS 04/25/17 06/13/18 Collagenase Oint [Santyl] 1 appl TP BID 10/03/17 06/13/18 Gabapentin [Neurontin] 600 mg PO DAILY 10/03/17 06/13/18 Insulin ASPART [NovoLOG] 50 - 80 unit SQ BID 10/03/17 06/13/18 Insulin Glargine [Lantus] 100 unit SQ BID 10/03/17 06/13/18 Clopidogrel [Plavix] 75 mg PO DAILY 10/10/17 06/13/18 Febuxostat [Uloric] 40 mg PO DAILY 10/10/17 06/13/18 Gentamicin Oint [Garamycin] 1 appl TP BID 10/10/17 06/13/18 Ondansetron [Zofran] 8 mg PO TID PRN 10/10/17 06/13/18 metOLazone [Zaroxolyn] 5 mg PO MOTH 10/10/17 06/13/18 Albuterol Sulfate [Albuterol 2 puff IH Q6H PRN 06/13/18 06/13/18 Inhaler] Aspirin [Lo-Dose Aspirin EC] 81 mg PO DAILY 06/13/18 06/13/18 Diclofenac Sodium [Voltaren] 1 appl TP DAILY 06/13/18 06/13/18 Glucagon,Human Recombinant 1 mg IJ AD PRN 06/13/18 06/13/18 [Glucagon Emergency Kit] Guaifenesin [Mucus Relief] 400 mg PO TID 06/13/18 06/13/18 Lactulose 20 gm PO TID 06/13/18 06/13/18 Multivitamin [One Daily 1 tab PO DAILY 06/13/18 06/13/18 Multivitamin] OxyCODONE Immed Rel [Roxicodone 10 10 mg PO Q4H PRN 06/13/18 06/13/18 MG] Terbinafine HCl [Lamisil At] 1 appl TP BID 06/13/18 06/13/18 raNITIdine HCl [Zantac] 150 mg PO BID 06/13/18 06/13/18 Furosemide 80 mg PO BID 06/15/18 06/15/18 Previous Rx's Medication Instructions Recorded Isosorbide MONOnitrate (24 HR) 60 mg PO DAILY #30 tab.er.24h 06/15/18 [Imdur] Allergies Allergy/AdvReac Type Severity Reaction Status Date / Time morphine Allergy Difficulty Verified 06/13/18 19:48 Breathing shellfish derived Allergy Difficulty Verified 06/13/18 19:48 Breathing atorvastatin [From Lipitor] AdvReac Muscle Pain Verified 06/13/18 19:48 hydrocodone [From Vicodin] AdvReac Confusion Verified 06/13/18 19:48 ibuprofen [From Motrin] AdvReac Gastrointestinal Verified 06/13/18 19:48 Upset tramadol AdvReac Confusion Verified 06/13/18 19:48 Past Medical History - Past Medical History Medical history: Reports: cancer, coronary artery disease, diabetes, hyperlipidemia, hypertension, other Surgical history: Reports: angioplasty/stent Psychiatric history: Reports: no psych history - Social History Smoking Status: Former smoker Smokeless Tobacco Status: No Alcohol use: Reports: none Drug use: Reports: none Physical Exam - General Limitations: physical limitation General appearance: alert, in no apparent distress Course Vital Signs Temperature 98.2 F 06/26/18 17:23 Pulse Rate 72 06/26/18 17:23 Respiratory Rate 18 06/26/18 17:23 Blood Pressure 132/75 06/26/18 17:23 O2 Sat by Pulse Oximetry 100 06/26/18 17:23 Temperature 98.2 F 06/26/18 17:23 Pulse Rate 72 06/26/18 17:23 Respiratory Rate 18 06/26/18 17:23 Blood Pressure 132/75 06/26/18 17:23 O2 Sat by Pulse Oximetry 100 06/26/18 17:38 Oxygen Delivery Oxygen Delivery Nasal Cannula Attestation Statement - Attestation Attestation: I examined this patient and my medical decision-making was reviewed with the Resident Physician. I agree with the documented findings, disposition and treatment plan as described except to the extent set forth below. 78-year-old male presented to the ER for chief complaint is shortness of breath. Patient has active hepatocellular carcinoma. Patient has had significant ascites fluid in his abdomen as well as he has developed malignant effusions. He has had these drained recently. This did help with his breathing. I explained that the effusions with continued to worsen. He is on hospice care and does not want significant interventions done. He would prefer not to be admitted to the hospital. His abdomen is very distended and this is likely also pushing up secondary to fluid on his diaphragm and into his lungs causing the effusions. Patient states he has hospice, maybe once a week to visit him. We will have social work evaluate and talk with him and have them discuss with the hospice team about increasing their visits. I do not feel he needs to be admitted as he does not want any further treatment for this.
[2018-06-26 18:20] LABS: Basophils # 0.1 K/mcL (0.0-0.2); Basophils % 0.5 %; Eosinophils # 0.4 K/mcL (0.0-0.6); Eosinophils % 4.1 %; Hematocrit 35.3 % (37.5-50.1); Hemoglobin 11.3 g/dL (12.9-16.9); Immature Granulocytes % 0.3 % (0-4); Lymphocytes # 1.5 K/mcL (0.6-4.6); Lymphocytes % 16.5 %; Mean Corpuscular Hemoglobin 30.1 pg (28.0-33.3); Mean Corpuscular Volume 94.1 fL (83.0-100.0); Mean Platelet Volume 10.8 fL (9.4-12.4); Monocytes # 0.8 K/mcL (0.0-1.3); Monocytes % 8.6 %; Neutrophils # 6.5 K/mcL (1.6-8.9); Platelet Count 178 K/mcL (140-400); Red Blood Count 3.75 M/mcL (4.19-5.50); Red Cell Distribution Width 15.6 % (11.5-14.5)
[2018-06-26 18:41] LABS: BUN/Creatinine Ratio 17 (6-26); Blood Urea Nitrogen 26 mg/dL (8-23); Calcium 8.3 mg/dL (8.6-10.3); Carbon Dioxide 30 mEq/L (23-29); Chloride 99 mEq/L (98-107); Glucose 434 mg/dL (70-105); Osmolality,Calculated 301 (280-300); Potassium 4.5 mEq/L (3.5-5.1); Sodium 134 mEq/L (136-145); eGFR For Non-African Americans 44 (> 60)
[2018-06-26 18:42] LABS: Troponin I < 0.03 ng/mL (< 0.04)
[2018-06-26] MEDS ORDERED: Naloxone 0.4 MG/ML INJ IVP PRN (20:12)
[2018-06-27] MEDS ORDERED: D5% in Water 1,000 ML IVC PRN (02:58)
[2018-06-27] MEDS ORDERED: *HR* Dextrose 50 % in Water (Syg) 50 ML SYRINGE IVP PRN (02:58)
[2018-06-27] MEDS ORDERED: Dextrose Gel 15 GM/37.5 ML TUBE PO PRN ×2 (02:58)
--- NOTE | 2018-06-27 03:04 | Internal Med History&Physical ---
Date of Encounter: 06/27/18 Time of Encounter: 03:02 Internal Medicine - H&P: HPI Chief complaint: SOB History of present illness: Mr. Vieyra is a 78 year old male past medical history of metastatic hepatocellular carcinoma currently on hospice presenting to the emergency department chief complaint shortness of breath. Patient was seen at the [facility] earlier today for his SOB where a a two-view chest x-ray that showed mild to moderate bilateral pleural effusions was performed. In the ED patient reported to by asymptomatic aside from a little shortness of breath. He was alert and responding appropriately. Vital signs stable saturating 100% on 4 L. He is on baseline 4 L/NC. Patient was recently admitted approximately 2 weeks ago and underwent right sided thoracentesis with 600 ml of fluid drained. His Dyspnea subsequently improved. At this time patient denies any fevers, dizziness, headache or chest pain. States he has had progressive shortness of breath over the past 2-3 months. Patient is currently on home hospice care who comes approximately once a week however, he still remains full code. Palliative care has been following the patient but from a distance since his transition to hospice. Patient agrees to be admitted for possible pleuro-vac drain and further interventional procedures for palliative care reasons. Past Med Surg Social Fam HX - Past Medical History Medical history: cancer, coronary artery disease, diabetes, hyperlipidemia, hypertension, other Additional medical history: pancreatic, skin, liver cancer. hyperkalemia. dysmetabolic syndrome X. Left Ventricular Hypertrophy. Hepatitis A. Leukocytosis. Gout. Sleep Apnea. Gastroparesis Psychiatric history: no psych history - Past Surgical History Surgical History: angioplasty/stent Additional surgical history: 7 stents - Social History Smoking Status: Former smoker Smokeless Tobacco Status: No Alcohol use: none Drug use: none - Family History Father Adopted: No Family Member Ethnicity: Non- Living Status: Hx Family Cardiac Disorders: Yes Hx Family Respiratory Disorders: Yes Hx Family Cancer: No Hx Family GI Disorders: No Hx Family Endocrine Disorder: No Hx Family Neuromuscular Disorders: No Hx Family Neurologic Disorders: No Hx Family HEENT Disorders: No Hx Family Autoimmune Disorders: No Mother Adopted: No Family Member Ethnicity: Non- Living Status: Hx Family Cardiac Disorders: Yes Hx Family Respiratory Disorders: Yes Hx Family Cancer: No Hx Family GI Disorders: No Hx Family Endocrine Disorder: Yes Hx Family Neuromuscular Disorders: No Hx Family Neurologic Disorders: No Hx Family HEENT Disorders: No Hx Family Autoimmune Disorders: No Internal Medicine - H&P: Meds Docusate Sodium 300 mg PO HS 04/25/17 [History] Gabapentin [Neurontin] 600 mg PO DAILY 10/03/17 [History] Insulin ASPART [NovoLOG] 50 - 80 unit SQ BID 10/03/17 [History] Insulin Glargine [Lantus] 100 unit SQ BID 10/03/17 [History] Clopidogrel [Plavix] 75 mg PO DAILY 10/10/17 [History] Febuxostat [Uloric] 40 mg PO DAILY 10/10/17 [History] Ondansetron [Zofran] 8 mg PO TID PRN 10/10/17 [History] metOLazone [Zaroxolyn] 5 mg PO MOTH 10/10/17 [History] Albuterol Sulfate [Albuterol Inhaler] 2 puff IH Q6H PRN 06/13/18 [History] Aspirin [Lo-Dose Aspirin EC] 81 mg PO DAILY 06/13/18 [History] Diclofenac Sodium [Voltaren] 1 appl TP DAILY 06/13/18 [History] Glucagon,Human Recombinant [Glucagon Emergency Kit] 1 mg IJ AD PRN 06/13/18 [ History] Guaifenesin [Mucus Relief] 400 mg PO TID 06/13/18 [History] Lactulose 20 gm PO TID 06/13/18 [History] Multivitamin [One Daily Multivitamin] 1 tab PO DAILY 06/13/18 [History] OxyCODONE Immed Rel [Roxicodone 10 MG] 10 mg PO Q4H PRN 06/13/18 [History] raNITIdine HCl [Zantac] 150 mg PO BID 06/13/18 [History] Furosemide [Lasix] 40 mg PO QID PRN #0 06/15/18 [History] Isosorbide MONOnitrate (24 HR) [Imdur] 60 mg PO DAILY #30 tab.er.24h 06/15/18 [ Rx] 3 Allergy/AdvReac Type Severity Reaction Status Date / Time morphine Allergy Difficulty Verified 06/13/18 19:48 Breathing shellfish derived Allergy Difficulty Verified 06/13/18 19:48 Breathing atorvastatin [From Lipitor] AdvReac Muscle Pain Verified 06/13/18 19:48 hydrocodone [From Vicodin] AdvReac Confusion Verified 06/13/18 19:48 ibuprofen [From Motrin] AdvReac Gastrointestinal Verified 06/13/18 19:48 Upset tramadol AdvReac Confusion Verified 06/13/18 19:48 All Systems PM: A 10-system review of systems was performed and is negative for pertinent findings except as documented above in the HPI. - Constitutional Constitutional: no chills, no fever(s), no night sweats - EENT Eyes: no change in vision, no discharge, no pain, no photophobia Ears: no ear discharge, no ear pain, no tinnitus Nose, mouth and throat: no dysphagia, no nasal discharge, no neck pain, no sore throat - Cardiovascular Cardiovascular ROS IM: no chest pain, no diaphoresis, no dyspnea, no lightheadedness, no palpitations, no syncope - Respiratory Respiratory: no cough, no dyspnea, no wheezing, no excessive phlegm production - Gastrointestinal Gastrointestinal: no abdominal pain, no diarrhea, no hematemesis, no hematochezia, no melena, no nausea, no vomiting - Musculoskeletal Musculoskeletal ROS IM: no numbness, no tingling - Integumentary Integumentary IM: no rash, no unusual bruising - Neurological Neurological ROS: no confusion, no convulsions, no focal weakness, no numbness, no tingling, no tremor(s) - Hematologic/Lymphatic Hematologic/Lymphatic: no easy bruising - Constitutional Vitals: Temp Pulse Resp BP Pulse Ox 98.4 F 81 17 120/72 99 06/27/18 00:34 06/27/18 00:34 06/27/18 00:34 06/27/18 00:34 06/27/18 01:13 Exam: General: Alert and oriented 3. Lying in bed in no acute distress Skin:Normal color, no rash, no lesions. HEENT:EOM, pupils equal, round and reactive. Cardiovascular:Normal S1 & S2, no rubs, murmurs or gallops. No JVD. Pulse regular. Lungs:Normal breath sounds with auscultation to the anterior chest wall. Was not able to auscultate the posterior thorax due to the patient's large body habitus habitus and inability to accommodate me during the examination. no wheezes or crackles. Abdomen: Firm and distended; non-tender to palpation, no rebound or guarding; normal active bowel sounds Extremities:No deformity, no edema or tenderness, no joint swelling or clubbing. Neurological:Normal cognition and motor skills. Pulses:Carotid and radial pulses normal +2. Rest of the physical exam is non contributory Internal Med - H&P Results - Labs CBC & Chem 7: 06/27/18 06:53 06/26/18 18:03 - Assessment and plan (1) SOB (shortness of breath) Current Visit: Yes Status: Acute Assessment and plan: Shortness of breath likely secondary to pleural effusion seen on chest x-ray imaging at the [facility] as well as possible ascites in the setting of hepatocellular carcinoma preventing full lung expansion. Patient had 600 mL of pleural fluid removed during his last admission in May. At this time patient seems relatively stable from a respiratory standpoint. We will reimage the abdomen and chest with a CT scan to reassess the degree of pleural and ascitic fluid. Consult palliative care for possible pleuro-vac drain and further interventional procedures for palliative care reasons. Consider pulmonary and GI consult if needed. (2) Pleural effusion Current Visit: Yes Status: Acute Assessment and plan: Pleural fluid seen on imaging at the [facility] via chest x-ray. We will reimage with CT scan of the chest to assess the degree of reaccumulation since his last thoracentesis . (3) Elevated lactic acid level Current Visit: Yes Status: Acute Assessment and plan: Elevated lactic acid likely secondary to underlying hepatocellular carcinoma. Monitor. (4) Hepatocellular carcinoma Current Visit: Yes Status: Chronic Assessment and plan: Metastatic hepatocellular carcinoma. Patient currently on hospice care at home. Palliative care consult to reassess comfort needs. (5) Ascites Current Visit: Yes Status: Acute Assessment and plan: We will reassess with CT of the abdomen. Based on findings consider paracentesis for palliative purposes if significant. Qualifiers: Ascites type: malignant Qualified Code(s): R18.0 - Malignant ascites (6) Acute kidney injury Current Visit: No Status: Acute Assessment and plan: Acute kidney injury. Patient's creatinine seems to be elevated at baseline though his last creatinine on 823 was 1.14. Patient is on metolazone and Lasix. Continue for now. - Time Spent With Patient Total time spent is greater than 50% in coordination of care (as documented) at patient's floor/unit and/or counseling patient:
[2018-06-27] MEDS ORDERED: Furosemide 40 MG/4 ML VIAL IVP ONE (06:20)
[2018-06-27] MEDS ORDERED: Furosemide 40 MG TABLET PO PRN (06:21)
[2018-06-27] MEDS ORDERED: metOLazone 5 MG TABLET PO SCH (06:30)
[2018-06-27] MEDS: *HR* OxyCODONE Immed Rel 5 MG TABLET PO PRN ×2 (07:06→21:26)
[2018-06-27] MEDS ORDERED: Insulin LISPRO 300 UNITS/3 ML VIAL SQ SCH ×2 (07:30→21:00)
[2018-06-27 07:49] LABS: Basophils % 0.5 %; Eosinophils # 0.4 K/mcL (0.0-0.6); Eosinophils % 5.1 %; Hematocrit 32.5 % (37.5-50.1); Hemoglobin 10.6 g/dL (12.9-16.9); Immature Granulocytes % 0.2 % (0-4); Lymphocytes # 1.5 K/mcL (0.6-4.6); Lymphocytes % 17.2 %; Mean Corpuscular HGB Conc 32.6 g/dL (31.6-35.5); Mean Corpuscular Hemoglobin 30.5 pg (28.0-33.3); Mean Corpuscular Volume 93.7 fL (83.0-100.0); Mean Platelet Volume 10.7 fL (9.4-12.4); Monocytes # 0.6 K/mcL (0.0-1.3); Monocytes % 7.6 %; Neutrophils # 5.9 K/mcL (1.6-8.9); Platelet Count 176 K/mcL (140-400); Red Blood Count 3.47 M/mcL (4.19-5.50); Red Cell Distribution Width 15.7 % (11.5-14.5); Segmented Neutrophils % 69.4 %
[2018-06-27] MEDS: Gabapentin 300 MG CAPSULE PO SCH (08:44)
[2018-06-27] MEDS: Lactulose Oral Soln 20 GM/30 ML UDC PO SCH ×3 (08:44→21:26)
[2018-06-27] MEDS: GuaiFENesin Liq 200 MG/10 ML UDC PO SCH ×3 (08:44→21:27)
[2018-06-27] MEDS: Isosorbide MONOnitrate (24 HR) 60 MG TAB.ER.24H PO SCH (08:44)
[2018-06-27] MEDS: Aspirin Enteric Coated 81 MG Tablet PO SCH (08:45)
[2018-06-27] MEDS: Febuxostat [Uloric] 40 MG PO SCH (08:45)
[2018-06-27] MEDS: Insulin LISPRO 300 UNITS/3 ML VIAL SQ SCH ×3 (08:48→16:13)
[2018-06-27 08:49] LABS: Albumin 2.5 g/dL (3.5-5.7); Albumin/Globulin Ratio 0.7 (1.1-2.2); Bilirubin,Total 0.7 mg/dL (0.3-1.0); Calcium 8.3 mg/dL (8.6-10.3); Globulin 3.4 g/dL (2.4-3.5); Potassium 4.3 mEq/L (3.5-5.1); Total Protein 5.9 g/dL (6.4-8.9)
[2018-06-27] MEDS ORDERED: DICLOFENAC SODIUM TP SCH (09:00)
[2018-06-27] MEDS: Insulin DETEMIR 100 UNIT/ML X5UNITS SQ SCH ×2 (11:15→21:27)
--- NOTE | 2018-06-27 12:36 | Palliative - Consult Note ---
Date of Encounter: 06/27/18 Time of Encounter: 11:00 - Assessment and Plan (1) Generalized pain Current Visit: Yes Status: Acute Assessment and plan: Patient utilizes Oxycodone for pain at home and has been utilizing here. Taken x1 last 12 hours. States this is effective. Continue and monitor. (2) Goals of care, counseling/discussion Current Visit: No Status: Acute Assessment and plan: Discussed goals of care at length with and pt. They live alone - have 5 children - 3 of those live fairly close. They have multiple DME at home, including oxygen, bed, air mattress, walker, wheelchair, BSC and minor lift. They were enrolled in [facility] about 2 years ago, when he declined chemotherapy for the hepatocellular cancer. They have concerns regarding those services, and states that they have had visits decreased, pt states he is getting weaker and feels they should have more frequent visits. They were willing to discuss with [facility] and try and revise his plan of care. I spoke with [facility] who will be here later this afternoon to speak with them. I did have a lengthy discussion regarding code status, ensuring they understood what full code, DNRCCA, and DNRCC meant. He has already completed advanced directives through the [place]. Patient did express understanding but did not make any change in his code status at this time. Will f/u in am. (3) Weakness Current Visit: No Status: Acute (4) Pleural effusion Current Visit: Yes Status: Acute Assessment and plan: Possibly thoracentesis today. (5) Ascites Current Visit: Yes Status: Acute Assessment and plan: Order in for paracentesis today. Qualifiers: Ascites type: malignant Qualified Code(s): R18.0 - Malignant ascites (6) Hepatocellular carcinoma Current Visit: No Status: Chronic Assessment and plan: Patient refused treatment back when diagnosed. WAs referred to hospice at that time. Palliative-CN HPI - Data of Consult Requesting Physician: Marilu Garvey MD Primary Care Provider: PCP [place] - Consult Narrative History of present illness: Mr. Vieyra is a 78 year old male with a history of hepatocellular cancer diagnosed in 2016, who presented with increasing shortness of breath. He is on the red [place] under [place] Rob at the [place] and was seen there yesterday and found to have bilateral pleural effusions per xray. He states he had thoracentesis and paracentesis performed a few weeks ago here as well. He was found not to be candidate for surgery in 2016 with this cancer, and refused any cancer treatment. He has other pertinent medical history of CHF, COPD, diabetes, HTN, CAD and is on 4L oxygen at home. States that he has had recent decline over the last few months at home with increasing shortness of breath and increasing weakness. Appetite remains good. Struggles with some chronic back pain as well as intermittent abd pain suspected from his cancer. Upon my visit, he is resting quietly in bed with Celina at bedside. Appears in no distress. States he is comfortable - however, still shortness of breath noted with any activity. Awaiting fluid drainage from abd and possible lung as well. CC: Marilu Garvey MD Past Med Surg Social Fam HX - Past Medical History Medical history: cancer, coronary artery disease, diabetes, hyperlipidemia, hypertension, other Additional medical history: pancreatic, skin, liver cancer. hyperkalemia. dysmetabolic syndrome X. Left Ventricular Hypertrophy. Hepatitis A. Leukocytosis. Gout. Sleep Apnea. Gastroparesis Psychiatric history: no psych history - Past Surgical History Surgical History: angioplasty/stent Additional surgical history: 7 stents - Social History Smoking Status: Former smoker Smokeless Tobacco Status: No Alcohol use: none Drug use: none - Family History Father Adopted: No Family Member Ethnicity: Non- Living Status: Hx Family Cardiac Disorders: Yes Hx Family Respiratory Disorders: Yes Hx Family Cancer: No Hx Family GI Disorders: No Hx Family Endocrine Disorder: No Hx Family Neuromuscular Disorders: No Hx Family Neurologic Disorders: No Hx Family HEENT Disorders: No Hx Family Autoimmune Disorders: No Mother Adopted: No Family Member Ethnicity: Non- Living Status: Hx Family Cardiac Disorders: Yes Hx Family Respiratory Disorders: Yes Hx Family Cancer: No Hx Family GI Disorders: No Hx Family Endocrine Disorder: Yes Hx Family Neuromuscular Disorders: No Hx Family Neurologic Disorders: No Hx Family HEENT Disorders: No Hx Family Autoimmune Disorders: No Medications and Allergies Docusate Sodium 300 mg PO HS 04/25/17 [History] Gabapentin [Neurontin] 600 mg PO DAILY 10/03/17 [History] Insulin ASPART [NovoLOG] 50 - 80 unit SQ BID 10/03/17 [History] Insulin Glargine [Lantus] 100 unit SQ BID 10/03/17 [History] Clopidogrel [Plavix] 75 mg PO DAILY 10/10/17 [History] Febuxostat [Uloric] 40 mg PO DAILY 10/10/17 [History] Ondansetron [Zofran] 8 mg PO TID PRN 10/10/17 [History] metOLazone [Zaroxolyn] 5 mg PO MOTH 10/10/17 [History] Albuterol Sulfate [Albuterol Inhaler] 2 puff IH Q6H PRN 06/13/18 [History] Aspirin [Lo-Dose Aspirin EC] 81 mg PO DAILY 06/13/18 [History] Diclofenac Sodium [Voltaren] 1 appl TP DAILY 06/13/18 [History] Glucagon,Human Recombinant [Glucagon Emergency Kit] 1 mg IJ AD PRN 06/13/18 [ History] Guaifenesin [Mucus Relief] 400 mg PO TID 06/13/18 [History] Lactulose 20 gm PO TID 06/13/18 [History] Multivitamin [One Daily Multivitamin] 1 tab PO DAILY 06/13/18 [History] OxyCODONE Immed Rel [Roxicodone 10 MG] 10 mg PO Q4H PRN 06/13/18 [History] raNITIdine HCl [Zantac] 150 mg PO BID 06/13/18 [History] Furosemide [Lasix] 40 mg PO QID PRN #0 06/15/18 [History] Isosorbide MONOnitrate (24 HR) [Imdur] 60 mg PO DAILY #30 tab.er.24h 06/15/18 [ Rx] 3 Allergy/AdvReac Type Severity Reaction Status Date / Time morphine Allergy Difficulty Verified 06/13/18 19:48 Breathing shellfish derived Allergy Difficulty Verified 06/13/18 19:48 Breathing atorvastatin [From Lipitor] AdvReac Muscle Pain Verified 06/13/18 19:48 hydrocodone [From Vicodin] AdvReac Confusion Verified 06/13/18 19:48 ibuprofen [From Motrin] AdvReac Gastrointestinal Verified 06/13/18 19:48 Upset tramadol AdvReac Confusion Verified 06/13/18 19:48 All systems: reviewed and no additional remarkable complaints except as stated ( increasing weakness and malaise, shortness of breath with exertion, abdominal swelling, chronic back pain) Palliative Care-Exam - Constitutional Vitals: Temp Pulse Resp BP Pulse Ox 98.2 F 84 19 114/67 99 06/27/18 10:16 06/27/18 10:16 06/27/18 10:16 06/27/18 10:16 06/27/18 10:16 General appearance: Present: no acute distress - Head Head Exam: Present: normal inspection, normocephalic - Eye Eye exam: Present: normal appearance, PERRL - Respiratory Additional comments: Breath sounds diminished bilateral lower lobes - Cardiovascular Cardiovascular exam: Present: +S1, +S2 - GI/Abdominal Exam GI/Abdominal exam: Present: distended, firm, normal bowel sounds - Extremities Exam Extremities exam: Present: normal capillary refill, normal inspection - Neurological Exam Neurological exam: Present: alert, oriented X3, strengths equal and symetr throughout - Skin Skin exam: Present: dry, pallor, warm Internal Medicine - CN: Reslt - Labs CBC & Chem 7: 06/27/18 06:53 06/27/18 06:53 Labs: Short CBC 06/27/18 Range/Units 06:53 WBC 8.5 (4.3-11.1) K/mcL Hgb 10.6 L (12.9-16.9) g/dL Hct 32.5 L (37.5-50.1) % Plt Count 176 (140-400) K/mcL Neutrophils # 5.9 (1.6-8.9) K/mcL BMP 06/27/18 06:53 Sodium 137 Potassium 4.3 Chloride 98 Carbon Dioxide 32 H BUN 24 H Creatinine 1.52 H Glucose 488 H Calcium 8.3 L Liver Function 06/27/18 Range/Units 06:53 Total Bilirubin 0.7 (0.3-1.0) mg/dL AST 25 (13-39) Units/L ALT 12 (7-52) Units/L Alkaline Phosphatase 156 H (34-104) Units/L Albumin 2.5 L (3.5-5.7) g/dL - Impressions Impressions Abdomen/Pelvis CT 06/27/18 07:45 IMPRESSION: Small volume abdominal ascites and mild diffuse anasarca. Pleural effusions and associated airspace disease have decreased compared to the prior study. Cirrhotic morphology of the liver. Lesions in the liver noted on prior studies are not visualized without contrast. D/ / Juan F Gamez MD / Juan F Gamez MD Interpreting Provider: Juan F Gamez MD Chest CT 06/27/18 07:45 IMPRESSION: Small volume abdominal ascites and mild diffuse anasarca. Pleural effusions and associated airspace disease have decreased compared to the prior study. Cirrhotic morphology of the liver. Lesions in the liver noted on prior studies are not visualized without contrast. D/ / Juan F Gamez MD / Juan F Gamez MD Interpreting Provider: Juan F Gamez MD Consult Discharge Plan - Plan Referrals: [facility] [Outside] Palliative Quality Palliative Quality: Screen for Code Status: Yes, Screen for Goals of Care: Yes, Screen for Pain: Yes, If Pain Regimen Started, Initiate Bowel Regimen: NA (On scheduled lactulose), Screen for Nausea/Vomitting: Yes
[2018-06-27] MEDS: Furosemide 40 MG TABLET PO SCH (16:12)
--- NOTE | 2018-06-27 16:19 | Event Note ---
Date of Encounter: 06/27/18 Time of Encounter: 09:00 78-year-old male with history of metastatic hepatocellular cancer, coronary artery disease, hypertension, diabetes, admitted with shortness of breath due to bilateral pleural effusions and ascites. Seen and examined at bedside. Awaiting paracentesis. Reports shortness of breath and abdominal distention. Chest- S1, S2 heard; regular Abdomen- distended, fluid+ Extremities- B/L nonpitting pedal edema, nontender, stasis dermatitis Ascites- likely due to liver cancer. Patient had paracentesis done recently. CT abdomen/pelvis shows significant ascites. IR has been consulted for ultrasound-guided paracentesis. Continue home medications-Lasix and metolazone. Bilateral pleural effusions-CT chest shows decreased from prior study. Not amenable to thoracentesis. Continue supportive care, diuresis and supplemental oxygen. Metastatic hepatocellular cancer-per patient's at bedside, he declined treatment for cancer, does not follow with oncology anymore. continue Oxycodone for pain control. CODE STATUS discussed, remains full code. Palliative care consult. Diabetes mellitus-uncontrolled blood sugars. Start basal insulin. Continue Accu-Chek blood glucose monitoring with basal bolus insulin regimen, diabetic diet. Coronary artery disease Essential hypertension Hyperlipidemia Chronic respiratory failure
[2018-06-27] MEDS: *HR* Heparin 5,000 UNIT/ML VIAL SQ SCH (17:26)
[2018-06-27] MEDS: Gentamicin Oint 15 GM TUBE TP SCH (23:34)
[2018-06-28 04:24] LABS: BUN/Creatinine Ratio 17 (6-26); Blood Urea Nitrogen 21 mg/dL (8-23); Calcium 8.2 mg/dL (8.6-10.3); Carbon Dioxide 32 mEq/L (23-29); Chloride 98 mEq/L (98-107); Glucose 301 mg/dL (70-105); Osmolality,Calculated 296 (280-300); Potassium 3.9 mEq/L (3.5-5.1); Sodium 136 mEq/L (136-145); eGFR For Non-African Americans 55 (> 60)
[2018-06-28] MEDS: *HR* Heparin 5,000 UNIT/ML VIAL SQ SCH (06:26)
[2018-06-28] MEDS: *HR* OxyCODONE Immed Rel 5 MG TABLET PO PRN (06:27)
[2018-06-28 07:30] VITALS: BP 146/74
[2018-06-28] MEDS: Insulin LISPRO 300 UNITS/3 ML VIAL SQ SCH (08:40)
[2018-06-28] MEDS: GuaiFENesin Liq 200 MG/10 ML UDC PO SCH (08:41)
[2018-06-28] MEDS: Febuxostat [Uloric] 40 MG PO SCH (08:41)
[2018-06-28] MEDS: Furosemide 40 MG TABLET PO SCH (08:41)
[2018-06-28] MEDS: Insulin DETEMIR 100 UNIT/ML X5UNITS SQ SCH (08:41)
[2018-06-28] MEDS: Isosorbide MONOnitrate (24 HR) 60 MG TAB.ER.24H PO SCH (08:41)
[2018-06-28] MEDS: Gabapentin 300 MG CAPSULE PO SCH (08:41)
[2018-06-28] MEDS: Aspirin Enteric Coated 81 MG Tablet PO SCH (08:41)
[2018-06-28] MEDS: Lactulose Oral Soln 20 GM/30 ML UDC PO SCH (08:42)
[2018-06-28] MEDS: Gentamicin Oint 15 GM TUBE TP SCH (08:42)
--- NOTE | 2018-06-28 09:28 | Discharge Summary ---
- NOTES TO OUTPATIENT PROVIDER Notes to Outpatient Provider: Re current ascites likley due to hepatocellular cancer, s/p paracentesis; to consider arranging for scheduled outpatient paracentesis; discharging to home Hospice Date of Encounter: 06/28/18 Time of Encounter: 09:26 - Discharge Diagnosis (1) Hepatocellular carcinoma Priority: Primary Status: Chronic (2) Acute kidney injury Priority: Primary Status: Resolved (3) Pleural effusion Priority: Primary Status: Acute (4) Ascites Priority: Primary Status: Acute Qualifiers: Ascites type: malignant Qualified Code(s): R18.0 - Malignant ascites (5) CAD (coronary artery disease) Priority: Secondary Status: Chronic Qualifiers: Coronary Disease-Associated Artery/Lesion type: unspecified vessel or lesion type [place] vs. transplanted heart: [place] heart Associated angina: without angina Qualified Code(s): I25.10 - Atherosclerotic heart disease of [place] coronary artery without angina pectoris (6) Diabetes Priority: Secondary Status: Chronic Qualifiers: Diabetes mellitus type: type 2 Diabetes mellitus buttermaker helper insulin use: with skilled nursing use Diabetes mellitus complication status: with kidney complications Diabetes mellitus complication detail: with chronic kidney disease Chronic kidney disease stage: stage 3 (moderate) Qualified Code(s): E11.22 - Type 2 diabetes mellitus with diabetic chronic kidney disease; N18.3 - Chronic kidney disease, stage 3 (moderate); Z79.4 - senior living (current) use of insulin (7) Goals of care, counseling/discussion Priority: Primary Status: Acute (8) HTN (hypertension) Priority: Secondary Status: Chronic Qualifiers: Hypertension type: essential hypertension Qualified Code(s): I10 - Essential (primary) hypertension (9) Chronic respiratory failure Priority: Secondary Status: Chronic Qualifiers: Respiratory failure complication: hypoxia Qualified Code(s): J96.11 - Chronic respiratory failure with hypoxia Hospital course: Mr. Vieyra is a 78 year old male with history of metastatic hepatocellular cancer, who has declined treatment for the same, who is admitted with complaints of worsening shortness of breath and abdominal distention. Patient was recently hospitalized and underwent paracentesis. CT chest and abdomen was done that showed abdominal ascites, diffuse anasarca and bilateral pleural effusions. Interventional radiology was consulted and patient underwent paracentesis with at least 4 L peritoneal fluid removed. Not enough pleural fluid for thoracentesis. Patient was initially hyperglycemic, blood sugars were better controlled with initiation of long-acting insulin. Patient remained otherwise asymptomatic and hemodynamically stable during this hospitalization. Patient's seems to be in denial regarding his diagnosis and prognosis, seem to be reluctant to discuss about goals of care and CODE STATUS. Palliative care was consulted, after multiple and extensive discussions with patient and his , they have agreed to continue his CODE STATUS of full code , [facility], would continue to call EMS and presented to the emergency room for any complaints ( despite not wanting cancer treatment). Patient also declined Pleurx catheter placement for recurrent ascites, preferred to have paracentesis done each time. He is otherwise medically stable for discharge. Discharge discussed with: patient, family, nurse, showroom sales consultant - Time Spent with Patient Total time spent providing and/or coordinating discharge services: Greater than 30 minutes (40 min) - Discharge Medications Home Medications: Docusate Sodium 300 mg PO HS 04/25/17 [History] Gabapentin [Neurontin] 600 mg PO DAILY 10/03/17 [History] Insulin ASPART [NovoLOG] 50 - 80 unit SQ BID 10/03/17 [History] Insulin Glargine [Lantus] 100 unit SQ BID 10/03/17 [History] Clopidogrel [Plavix] 75 mg PO DAILY 10/10/17 [History] Febuxostat [Uloric] 40 mg PO DAILY 10/10/17 [History] Ondansetron [Zofran] 8 mg PO TID PRN 10/10/17 [History] metOLazone [Zaroxolyn] 5 mg PO MOTH 10/10/17 [History] Albuterol Sulfate [Albuterol Inhaler] 2 puff IH Q6H PRN 06/13/18 [History] Aspirin [Lo-Dose Aspirin EC] 81 mg PO DAILY 06/13/18 [History] Diclofenac Sodium [Voltaren] 1 appl TP DAILY 06/13/18 [History] Glucagon,Human Recombinant [Glucagon Emergency Kit] 1 mg IJ AD PRN 06/13/18 [ History] Guaifenesin [Mucus Relief] 400 mg PO TID 06/13/18 [History] Lactulose 20 gm PO TID 06/13/18 [History] Multivitamin [One Daily Multivitamin] 1 tab PO DAILY 06/13/18 [History] OxyCODONE Immed Rel [Roxicodone 10 MG] 10 mg PO Q4H PRN 06/13/18 [History] raNITIdine HCl [Zantac] 150 mg PO BID 06/13/18 [History] Furosemide [Lasix] 40 mg PO QID PRN #0 06/15/18 [History] Isosorbide MONOnitrate (24 HR) [Imdur] 60 mg PO DAILY #30 tab.er.24h 06/15/18 [ Rx] Collagenase Oint [Santyl] 1 appl TP DAILY tube 06/28/18 [Rx] Gentamicin Oint [Garamycin] 1 appl TP DAILY tube 06/28/18 [Rx] Allergies/Adverse Reactions: 3 Allergy/AdvReac Type Severity Reaction Status Date / Time morphine Allergy Difficulty Verified 06/13/18 19:48 Breathing shellfish derived Allergy Difficulty Verified 06/13/18 19:48 Breathing atorvastatin [From Lipitor] AdvReac Muscle Pain Verified 06/13/18 19:48 hydrocodone [From Vicodin] AdvReac Confusion Verified 06/13/18 19:48 ibuprofen [From Motrin] AdvReac Gastrointestinal Verified 06/13/18 19:48 Upset tramadol AdvReac Confusion Verified 06/13/18 19:48 Date of admission: 06/27/18 16:42 [facility] care physician[facility] Discharging clinician: Marilu Garvey Anticipated date of discharge: 06/28/18 - Constitutional Vitals: Temp Pulse Resp BP Pulse Ox 98.6 F 86 15 146/74 93 06/28/18 07:23 06/28/18 07:23 06/28/18 07:23 06/28/18 07:23 06/28/18 07:23 General appearance: Present: A&O X 3, morbidly obese, answers questions appropriately Exam: . - GI/Abdominal GI/Abdominal exam: Present: distended, normal bowel sounds, soft (firm, nontender, distended with dull note and anasarca), no peritoneal signs. Absent : tenderness - Patient Status Disposition: Hospice - Home Condition: Fair Functional capacity at discharge: bed bound Overall status at discharge: patient is progressing back to baseline - Discharge Instructions Follow Up With: [facility] [Outside] Additional Instructions: F/up with PCP in 1-2 weeks - Diet and Activity Activity: resume usual activities as tolerated Diet: diabetic diet, low fat, low cholesterol, low salt diet
--- NOTE | 2018-06-28 09:40 | Physician Discharge Referral ---
Home Health/Hosp Referral Info Transfer to: Hospice Attending Provider: Marilu Garvey Provider in Charge Post Discharge: PCP - Diagnosis (1) Hepatocellular carcinoma Priority: Primary Status: Chronic (2) Acute kidney injury Priority: Primary Status: Resolved (3) Pleural effusion Priority: Primary Status: Acute (4) Ascites Priority: Primary Status: Acute (5) CAD (coronary artery disease) Priority: Secondary Status: Chronic (6) Diabetes Priority: Secondary Status: Chronic (7) Goals of care, counseling/discussion Priority: Primary Status: Acute (8) HTN (hypertension) Priority: Secondary Status: Chronic (9) Chronic respiratory failure Priority: Secondary Status: Chronic - Respiratory Orders Oxygen / L per min (2L/min via [place] PRN to keep O2 sat>90%) Smoking Cessation: Smoking cessation has been advised. For more information, call the [employer] Tobacco Quit Line at 9-125-LLCI-NOW. - Diet/Nutrition Diet/Nutrition Orders: Cardiac, No Concentrated Sweets (diabetic) - Activity Activity Orders: Bedrest - Services Needed Following services are medically necessary services: Nursing - Transfer Medications Home Medications: Docusate Sodium 300 mg PO HS 04/25/17 [History] Gabapentin [Neurontin] 600 mg PO DAILY 10/03/17 [History] Insulin ASPART [NovoLOG] 50 - 80 unit SQ BID 10/03/17 [History] Insulin Glargine [Lantus] 100 unit SQ BID 10/03/17 [History] Clopidogrel [Plavix] 75 mg PO DAILY 10/10/17 [History] Febuxostat [Uloric] 40 mg PO DAILY 10/10/17 [History] Ondansetron [Zofran] 8 mg PO TID PRN 10/10/17 [History] metOLazone [Zaroxolyn] 5 mg PO MOTH 10/10/17 [History] Albuterol Sulfate [Albuterol Inhaler] 2 puff IH Q6H PRN 06/13/18 [History] Aspirin [Lo-Dose Aspirin EC] 81 mg PO DAILY 06/13/18 [History] Diclofenac Sodium [Voltaren] 1 appl TP DAILY 06/13/18 [History] Glucagon,Human Recombinant [Glucagon Emergency Kit] 1 mg IJ AD PRN 06/13/18 [ History] Guaifenesin [Mucus Relief] 400 mg PO TID 06/13/18 [History] Lactulose 20 gm PO TID 06/13/18 [History] Multivitamin [One Daily Multivitamin] 1 tab PO DAILY 06/13/18 [History] OxyCODONE Immed Rel [Roxicodone 10 MG] 10 mg PO Q4H PRN 06/13/18 [History] raNITIdine HCl [Zantac] 150 mg PO BID 06/13/18 [History] Furosemide [Lasix] 40 mg PO QID PRN #0 06/15/18 [History] Isosorbide MONOnitrate (24 HR) [Imdur] 60 mg PO DAILY #30 tab.er.24h 06/15/18 [ Rx] Collagenase Oint [Santyl] 1 appl TP DAILY tube 06/28/18 [Rx] Gentamicin Oint [Garamycin] 1 appl TP DAILY tube 06/28/18 [Rx] Allergies/Adverse Reactions: 3 Allergy/AdvReac Type Severity Reaction Status Date / Time morphine Allergy Difficulty Verified 06/13/18 19:48 Breathing shellfish derived Allergy Difficulty Verified 06/13/18 19:48 Breathing atorvastatin [From Lipitor] AdvReac Muscle Pain Verified 06/13/18 19:48 hydrocodone [From Vicodin] AdvReac Confusion Verified 06/13/18 19:48 ibuprofen [From Motrin] AdvReac Gastrointestinal Verified 06/13/18 19:48 Upset tramadol AdvReac Confusion Verified 06/13/18 19:48 Certification: Further, I certify that my clinical findings support that this patient is homebound (i.e. absences from home require considerable and taxing effort and are for medical reasons or congregation services or infrequently or short duration when for other reasons) because: Homebound Reason: Patient requires assistance of a person or device to safely leave home, Leaving home requires considerable and taxing effort due to condition Attestation: My signature below is to certify that this patient is under my care and that I, or nurse practitioner, or a physician's speech assistant working with me, has a face-to -face encounter with this patient.
--- NOTE | 2018-06-28 09:47 | Palliative Progress Note ---
Date of Encounter: 06/28/18 Time of Encounter: 09:00 - Assessment and plan (1) Congestive heart failure Current Visit: No Status: Chronic Assessment and plan: Chronic; stable. Qualifiers: Heart failure type: unspecified Heart failure chronicity: unspecified Qualified Code(s): I50.9 - Heart failure, unspecified (2) Ascites Current Visit: Yes Status: Acute Assessment and plan: Patient tapped yesterday. 4.3 L off. Patient reports improved breathing today. Discussed potential of continued tap versus placement of drain; patient and undecided at present time. Interested in talking over for several days and notifying [facility] at home. Qualifiers: Ascites type: malignant Qualified Code(s): R18.0 - Malignant ascites (3) Goals of care, counseling/discussion Current Visit: No Status: Acute Assessment and plan: Conducted meeting regarding goals of care with patient and at bedside. Discussed recurrence of hospital trips and revocation of hospice; verbalized understanding and informed scientific technical writer would continue to do so as they see fit. Patient's reports she plans to always bring him back to the hospital for shortness of breath and informed scientific technical writer that if patient is unable to speak for himself, she will always send him back to hospital. Discussed whether to resume hospice; patient unsure if he wants to continue hospice; however desires nothing to be changed at home and insists on continuing hospice care as is. Discussed potenital of outpatient placement of drain for ascites versus continued tapping for control of fluid and repeat hospitalizations; patient's refused and insisted on bringing him back to the hospital. Discussed potential to discuss over the coming days/weeks as he is not able to stay out of hospital for more than 3 weeks for repeat fluid; patient reported he will think everything over and let [facility] know his decision. Discussed concern over family's complaints of lack of frequency of visits from hospice, but dilemma with time constraints and visits; patient reports they come enough as is. Discussed CODE STATUS; patient reports it is his desire to "call an ambulance, be checked out, if they can bring me back and bring me to the hospital to get better, but if I , then I ." Confirmed understanding of CPR/Intubation/ poor prognosis, verbalized understanding and desires to be a FULL CODE. Patient' s appeared upset at departing, offered to answer any questions or concerns , refused. Patient plans to be discharged today to return home with [facility]. (4) SOB (shortness of breath) Current Visit: Yes Status: Acute Assessment and plan: Denies shortness of breath during assessment. Continue oxygen therapy. (5) Hepatocellular carcinoma Current Visit: Yes Status: Chronic Assessment and plan: Patient is not seeking cancer treatment. - Time Spent With Patient Total time spent is greater than 50% in coordination of care (as documented) at patient's floor/unit and/or counseling patient: - Subjective Interval history: Patient sitting up in bed having breakfast upon arrival for assessment. Patient alert and oriented times 3. present at bedside. Patient reported some sacral pain; however, was unable to rate when inquired about pain scale, reported it always goes away when lays down. Patient denied shortness of breath , anxiety, nausea and vomiting. Patient reports no bowel movement "in almost a month;" hyperactive bowel sounds noted. During assessment, Dr. Quan at patient's bedside and informed patient he would be discharged home today. - Constitutional Vitals: Abnormal lab results RBC 3.47 M/mcL (4.19-5.50) L 06/27/18 06:53 Hgb 10.6 g/dL (12.9-16.9) L 06/27/18 06:53 Hct 32.5 % (37.5-50.1) L 06/27/18 06:53 RDW 15.7 % (11.5-14.5) H 06/27/18 06:53 Carbon Dioxide 32 mEq/L (23-29) H 06/28/18 03:48 Est GFR (Non-Af Amer) 55 (> 60) L 06/28/18 03:48 Glucose 301 mg/dL (70-105) H 06/28/18 03:48 POC Glucose 287 mg/dL (70-99) H 06/28/18 07:25 Lactic Acid 2.7 mmol/L (0.5-2.2) H 06/26/18 18:03 Calcium 8.2 mg/dL (8.6-10.3) L 06/28/18 03:48 Alkaline Phosphatase 156 Units/L (34-104) H 06/27/18 06:53 Ammonia 67 mcmol/L (16-53) H 06/26/18 18:03 B-Natriuretic Peptide 192 pg/mL (Less than 100) H 06/26/18 18:03 Serum Total Protein 5.9 g/dL (6.4-8.9) L 06/27/18 06:53 Albumin 2.5 g/dL (3.5-5.7) L 06/27/18 06:53 Albumin/Globulin Ratio 0.7 (1.1-2.2) L 06/27/18 06:53 General appearance: Present: cooperative, morbidly obese, no acute distress - Head Head exam: Present: atraumatic, normal inspection - Eye Eye exam: Present: PERRL. Absent: periorbital swelling, periorbital tenderness Pupils: Present: normal accommodation, PERRL - ENT ENT exam: Present: mucous membranes moist, normal external ear exam - Neck Neck exam: Present: full ROM, normal inspection - Respiratory Respiratory exam: Present: CTAB. Absent: accessory muscle use, respiratory distress - Cardiovascular Cardiovascular exam: Present: +S1, +S2 - GI/Abdominal GI/Abdominal exam: Present: distended, firm, hyperactive bowel sounds, rigid. Absent: guarding, tenderness - Expanded Abdominal Exam GI/Abdominal exam: Present: ascites - Rectal Rectal exam: Present: deferred - Extremities Exam Extremities exam: Present: pedal edema. Absent: normal inspection (dressings noted to BLE.) - Neurological Exam Neurological exam: Present: alert, oriented X3, strengths equal and symetr throughout. Absent: facial droop, speech deficit - Psychiatric Psychiatric exam: Present: normal affect, normal mood - Skin Skin exam: Present: dry, warm. Absent: intact Palliative Quality Palliative Quality: Screen for Code Status: Yes, Screen for Goals of Care: Yes, Screen for Pain: Yes, If Pain Regimen Started, Initiate Bowel Regimen: NA (On scheduled lactulose), Screen for Nausea/Vomitting: Yes - Labs CBC & Chem 7: 06/27/18 06:53 06/28/18 03:48 Labs: Laboratory Results - last 24 hr 06/27/18 06/28/18 06/28/18 20:40 03:48 07:25 Sodium 136 Potassium 3.9 Chloride 98 Carbon Dioxide 32 H BUN 21 Creatinine 1.26 Est GFR ( Amer) > 60 Est GFR (Non-Af Amer) 55 L BUN/Creatinine Ratio 17 Glucose 301 H POC Glucose 309 H 287 H Calculated Osmolality 296 Calcium 8.2 L Consult Discharge Plan - Plan Additional Instructions: F/up with PCP in 1-2 weeks Referrals: [facility] [Outside]
--- NOTE | 2018-06-29 13:15 | Electrocardiograph Report ---
[place] [id number] Test Date: 2018-06-26 Pat Name: Jelani Vieyra Department: EXAM21 Room: 3A11 Gender: M [employer] Effects Designer: : 1940 Requested By: Aliza Lora Order Number: [id number] Reading MD: Hernesto Morales Measurements Intervals [place] Rate: 72 P: 75 VA: 153 QRS: 73 QRSD: 95 T: 57 QT: 442 QTc: 484 Interpretive Statements Sinus rhythm INFEROLATERAL ST CHANGES Electronically Signed On 06-29-2018 13:13:33 EDT by Hernesto Morales
== END 2018-06-28 12:35 | disposition hospice, home (50) | DRG 436 ==
LOC: EMEROOARM 17:20 → 3ANU 17:20 → SUATTDRO 21:15 → 3ANU 23:20
PROVIDERS: ADMIT Internal Medicine; ATTEND Internal Medicine

== ENCOUNTER 2018-07-12 18:15 | Inpatient (IN) ==
--- NOTE | 2018-07-12 18:45 | Emergency Department Note ---
Disposition Clinical Impression: Ascites Qualifiers: Ascites type: malignant Qualified Code(s): R18.0 - Malignant ascites Disposition: Admitted As Inpatient General Adult HPI - General Chief complaint: ED General Medical Stated complaint: General/ascites/needs paracentesis Time Seen by Provider: 07/12/18 18:17 Source: patient Limitations: no limitations - History of Present Illness HPI Narrative: Attestation note I examined this patient and my medical decision-making was reviewed with the Resident Physician/INTERNET DEVELOPER/PA. I agree with the documented findings, disposition and treatment plan as described except to the extent set forth below Patient seen with emergency medicine resident Yasmin Marino, please see copy of his note for details of this patient encounter Briefly: 78-year-old male history of advanced carcinoma with spread to the liver presents with ascites. Transferred by EMS from [place] emergency department to [facility], they are not seeing oncology because he is on hospice care. Patient was agreeable for admission to have IR place draining report for continuous drainage. Patient denies fevers chills nausea or vomiting his abdomen is nontender although distended and bedside teaching ultrasound does show ascitic fluid present. We will get screening labs , a meal tray for him and then arrange for admission. Patient's family are comfortable and supportive of this plan. Disposition pending Pain Scale: 0 - Related Data Home Medications Medication Instructions Recorded Confirmed Docusate Sodium 300 mg PO HS 04/25/17 06/26/18 Gabapentin [Neurontin] 600 mg PO DAILY 10/03/17 06/26/18 Insulin ASPART [NovoLOG] 50 - 80 unit SQ BID 10/03/17 06/26/18 Insulin Glargine [Lantus] 100 unit SQ BID 10/03/17 06/26/18 Clopidogrel [Plavix] 75 mg PO DAILY 10/10/17 06/26/18 Febuxostat [Uloric] 40 mg PO DAILY 10/10/17 06/26/18 Ondansetron [Zofran] 8 mg PO TID PRN 10/10/17 06/26/18 metOLazone [Zaroxolyn] 5 mg PO MOTH 10/10/17 06/26/18 Albuterol Sulfate [Albuterol 2 puff IH Q6H PRN 06/13/18 06/26/18 Inhaler] Aspirin [Lo-Dose Aspirin EC] 81 mg PO DAILY 06/13/18 06/26/18 Diclofenac Sodium [Voltaren] 1 appl TP DAILY 06/13/18 06/26/18 Glucagon,Human Recombinant 1 mg IJ AD PRN 06/13/18 06/26/18 [Glucagon Emergency Kit] Guaifenesin [Mucus Relief] 400 mg PO TID 06/13/18 06/26/18 Lactulose 20 gm PO TID 06/13/18 06/26/18 Multivitamin [One Daily 1 tab PO DAILY 06/13/18 06/26/18 Multivitamin] OxyCODONE Immed Rel [Roxicodone 10 10 mg PO Q4H PRN 06/13/18 06/26/18 MG] raNITIdine HCl [Zantac] 150 mg PO BID 06/13/18 06/26/18 Furosemide [Lasix] 40 mg PO QID PRN #0 06/15/18 06/26/18 Previous Rx's Medication Instructions Recorded Isosorbide MONOnitrate (24 HR) 60 mg PO DAILY #30 tab.er.24h 06/15/18 [Imdur] Collagenase Oint [Santyl] 1 appl TP DAILY tube 06/28/18 Gentamicin Oint [Garamycin] 1 appl TP DAILY tube 06/28/18 Allergies Allergy/AdvReac Type Severity Reaction Status Date / Time morphine Allergy Difficulty Verified 06/13/18 19:48 Breathing shellfish derived Allergy Difficulty Verified 06/13/18 19:48 Breathing atorvastatin [From Lipitor] AdvReac Muscle Pain Verified 06/13/18 19:48 hydrocodone [From Vicodin] AdvReac Confusion Verified 06/13/18 19:48 ibuprofen [From Motrin] AdvReac Gastrointestinal Verified 06/13/18 19:48 Upset tramadol AdvReac Confusion Verified 06/13/18 19:48 Past Medical History - Past Medical History Medical history: Reports: cancer, coronary artery disease, diabetes, hyperlipidemia, hypertension, other Surgical history: Reports: angioplasty/stent Psychiatric history: Reports: no psych history - Social History Smoking Status: Former smoker Smokeless Tobacco Status: No Alcohol use: Reports: none Drug use: Reports: none Physical Exam - General Limitations: no limitations General appearance: alert, in no apparent distress Course Vital Signs Temperature 99 F 07/12/18 18:26 Pulse Rate 70 07/12/18 18:26 Respiratory Rate 15 07/12/18 18:26 Blood Pressure 135/61 07/12/18 18:26 O2 Sat by Pulse Oximetry 98 07/12/18 18:26 Temperature 99 F 07/12/18 18:26 Pulse Rate 70 07/12/18 18:26 Respiratory Rate 15 07/12/18 18:26 Blood Pressure 135/61 07/12/18 18:26 O2 Sat by Pulse Oximetry 98 07/12/18 18:26 Oxygen Delivery Oxygen Delivery Room Air
[2018-07-12 19:51] LABS: Basophils # 0.1 K/mcL (0.0-0.2); Basophils % 0.5 %; Eosinophils # 0.3 K/mcL (0.0-0.6); Eosinophils % 2.6 %; Hematocrit 37.3 % (37.5-50.1); Immature Granulocytes % 0.4 % (0-4); Lymphocytes # 1.9 K/mcL (0.6-4.6); Lymphocytes % 18.2 %; Mean Corpuscular HGB Conc 32.2 g/dL (31.6-35.5); Mean Corpuscular Hemoglobin 30.2 pg (28.0-33.3); Mean Platelet Volume 10.7 fL (9.4-12.4); Monocytes # 0.7 K/mcL (0.0-1.3); Monocytes % 6.6 %; Neutrophils # 7.7 K/mcL (1.6-8.9); Platelet Count 208 K/mcL (140-400); Red Blood Count 3.97 M/mcL (4.19-5.50); Red Cell Distribution Width 14.9 % (11.5-14.5); Segmented Neutrophils % 71.7 %
[2018-07-12 19:58] LABS: Prothrombin Time 11.2 Seconds (9.4-12.1)
--- NOTE | 2018-07-12 20:03 | Emergency Department Note ---
Disposition Clinical Impression: Ascites Qualifiers: Ascites type: malignant Qualified Code(s): R18.0 - Malignant ascites Disposition: Admitted As Inpatient Condition: Good Time of Disposition: 21:49 General Adult HPI - General Chief complaint: ED General Medical Stated complaint: General/ascites/needs paracentesis Time Seen by Provider: 07/12/18 18:17 Source: patient Limitations: no limitations Nursing Notes Reviewed: Yes Vital Signs Reviewed: Yes - History of Present Illness HPI Narrative: Male patient with a history of metastatic liver cancer presenting to the emergency department with increase in ascites. He states that whenever he is trying to walk he does get short of breath. He is requesting admission to the hospital here to have a port placed in his abdomen. He states that he did talk it over with hospice and they are agreeable to pay for the port to drain the ascites. Patient denies any fevers or chills. Does report a abrasion to his scrotal area as well as scrotal swelling. He denies any chest pain. He does report some diffuse abdominal pain. Denies any trouble urinating or defecating. No blood in his urine or stool. Pain Scale: 0 - Related Data Home Medications Medication Instructions Recorded Confirmed Docusate Sodium 300 mg PO HS 04/25/17 06/26/18 Gabapentin [Neurontin] 600 mg PO DAILY 10/03/17 06/26/18 Insulin ASPART [NovoLOG] 50 - 80 unit SQ BID 10/03/17 06/26/18 Insulin Glargine [Lantus] 100 unit SQ BID 10/03/17 06/26/18 Clopidogrel [Plavix] 75 mg PO DAILY 10/10/17 06/26/18 Febuxostat [Uloric] 40 mg PO DAILY 10/10/17 06/26/18 Ondansetron [Zofran] 8 mg PO TID PRN 10/10/17 06/26/18 metOLazone [Zaroxolyn] 5 mg PO MOTH 10/10/17 06/26/18 Albuterol Sulfate [Albuterol 2 puff IH Q6H PRN 06/13/18 06/26/18 Inhaler] Aspirin [Lo-Dose Aspirin EC] 81 mg PO DAILY 06/13/18 06/26/18 Diclofenac Sodium [Voltaren] 1 appl TP DAILY 06/13/18 06/26/18 Glucagon,Human Recombinant 1 mg IJ AD PRN 06/13/18 06/26/18 [Glucagon Emergency Kit] Guaifenesin [Mucus Relief] 400 mg PO TID 06/13/18 06/26/18 Lactulose 20 gm PO TID 06/13/18 06/26/18 Multivitamin [One Daily 1 tab PO DAILY 06/13/18 06/26/18 Multivitamin] OxyCODONE Immed Rel [Roxicodone 10 10 mg PO Q4H PRN 06/13/18 06/26/18 MG] raNITIdine HCl [Zantac] 150 mg PO BID 06/13/18 06/26/18 Furosemide [Lasix] 40 mg PO QID PRN #0 06/15/18 06/26/18 Previous Rx's Medication Instructions Recorded Isosorbide MONOnitrate (24 HR) 60 mg PO DAILY #30 tab.er.24h 06/15/18 [Imdur] Collagenase Oint [Santyl] 1 appl TP DAILY tube 06/28/18 Gentamicin Oint [Garamycin] 1 appl TP DAILY tube 06/28/18 Allergies Allergy/AdvReac Type Severity Reaction Status Date / Time morphine Allergy Difficulty Verified 06/13/18 19:48 Breathing shellfish derived Allergy Difficulty Verified 06/13/18 19:48 Breathing atorvastatin [From Lipitor] AdvReac Muscle Pain Verified 06/13/18 19:48 hydrocodone [From Vicodin] AdvReac Confusion Verified 06/13/18 19:48 ibuprofen [From Motrin] AdvReac Gastrointestinal Verified 06/13/18 19:48 Upset tramadol AdvReac Confusion Verified 06/13/18 19:48 All systems ED: reviewed and negative except as stated. Review of Systems: As Per HPI Constitutional: Denies: fever, chills Cardiovascular: Reports: dyspnea on exertion. Denies: chest pain, syncope Respiratory: Denies: cough Gastrointestinal: Reports: abdominal pain, other (Abdominal distention and swelling). Denies: nausea, vomiting, diarrhea, hematemesis, melena, hematochezia Genitourinary: Reports: testicular pain (And swelling). Denies: urgency, dysuria, frequency Musculoskeletal: Denies: back pain Integumentary: Denies: rash Past Medical History - Past Medical History Attestation: Yes The following information was validated with the patient. Source: patient Medical history: Reports: cancer, coronary artery disease, diabetes, hyperlipidemia, hypertension, other Surgical history: Reports: angioplasty/stent Psychiatric history: Reports: no psych history - Social History Smoking Status: Former smoker Smokeless Tobacco Status: No Alcohol use: Reports: none Drug use: Reports: none Physical Exam - General Limitations: no limitations General appearance: alert, in no apparent distress - Head Head exam: atraumatic, normocephalic, normal inspection - Eye Eye exam: Present: normal appearance, PERRL, EOMI - ENT ENT exam: normal exam, normal oropharynx, mucous membranes moist - Neck Neck exam: Present: normal inspection, full ROM, trachea midline - Chest Chest inspection: Present: normal inspection, symmetric chest wall rise. Absent : tenderness - Respiratory Respiratory exam: Present: normal lung sounds bilaterally. Absent: respiratory distress, accessory muscle use - Cardiovascular Cardiovascular exam: Present: regular rate, normal rhythm, normal heart sounds - Abdominal Exam Abdominal exam: Present: tenderness (Diffusely), distention, ascites. Absent: guarding, rebound, rigidity - Male exam: Present: scrotal swelling (And weeping. Small abrasion to the center of his testicles. No findings consistent with Adelina's. No crepitus.) - Extremities Exam Extremities exam: Present: normal inspection, full ROM, normal capillary refill , pedal edema (Pitting to knees). Absent: tenderness - Back Exam Back exam: Present: normal inspection, full ROM. Absent: tenderness - Neurological Exam Neurological exam: Present: alert, oriented X3 - Psychiatric Psychiatric exam: Present: normal affect, normal mood - Skin Skin exam: Present: warm, dry, intact, normal color. Absent: rash Course Course Narrative: We will admit patient to the hospital for ascites and increased abdominal distention. He did have a paracentesis around 2 weeks ago. He has an area right of his abdomen that is still oozing from his previous tap. Fevers or chills. He does have a rounded abdomen with a fluid wave. Bedside ultrasound did show moderate amount of ascites. We will admit patient to the hospital for paracentesis and likely port placement for continuous drainage of the ascites. Patient is agreeable to this plan. Vital Signs Temperature 99 F 07/12/18 18:26 Pulse Rate 70 07/12/18 18:26 Respiratory Rate 15 07/12/18 18:26 Blood Pressure 135/61 07/12/18 18:26 O2 Sat by Pulse Oximetry 98 07/12/18 18:26 Temperature 99 F 07/12/18 18:26 Pulse Rate 71 07/12/18 21:28 Respiratory Rate 12 07/12/18 21:28 Blood Pressure 138/65 07/12/18 21:28 O2 Sat by Pulse Oximetry 95 07/12/18 21:28 Oxygen Delivery Oxygen Delivery Room Air Medical Decision Making - Medical Records Medical records reviewed: Yes I reviewed the patient's medical records. - Lab Data Lab results reviewed: Yes I reviewed the patient's lab results. Result diagrams: 07/12/18 19:02 07/12/18 19:02 Lab Results 07/12/18 07/12/18 07/12/18 Range/Units 19:02 19:02 19:02 WBC 10.7 (4.3-11.1) K/mcL RBC 3.97 L (4.19-5.50) M/mcL Hgb 12.0 L (12.9-16.9) g/dL Hct 37.3 L (37.5-50.1) % MCV 94.0 (83.0-100.0) fL MCH 30.2 (28.0-33.3) pg MCHC 32.2 (31.6-35.5) g/dL RDW 14.9 H (11.5-14.5) % Plt Count 208 (140-400) K/mcL MPV 10.7 (9.4-12.4) fL Immature Gran % 0.4 (0-4) % Seg Neutrophils % 71.7 % Lymphocytes % 18.2 % Monocytes % 6.6 % Eosinophils % 2.6 % Basophils % 0.5 % Neutrophils # 7.7 (1.6-8.9) K/mcL Lymphocytes # 1.9 (0.6-4.6) K/mcL Monocytes # 0.7 (0.0-1.3) K/mcL Eosinophils # 0.3 (0.0-0.6) K/mcL Basophils # 0.1 (0.0-0.2) K/mcL PT 11.2 (9.4-12.1) Seconds INR 1.0 Sodium 136 (136-145) mEq/L Potassium 3.7 (3.5-5.1) mEq/L Chloride 95 L (98-107) mEq/L Carbon Dioxide 35 H (23-29) mEq/L BUN 38 H (8-23) mg/dL Creatinine 1.47 H (0.70-1.30) mg/dL Est GFR ( Amer) 56 L (> 60) Est GFR (Non-Af Amer) 46 L (> 60) BUN/Creatinine Ratio 26 (6-26) Glucose 227 H (70-105) mg/dL Calculated Osmolality 298 (280-300) Calcium 8.9 (8.6-10.3) mg/dL Total Bilirubin 0.6 (0.3-1.0) mg/dL AST 32 (13-39) Units/L ALT 9 (7-52) Units/L Alkaline Phosphatase 170 H (34-104) Units/L Serum Total Protein 6.9 (6.4-8.9) g/dL Albumin 2.8 L (3.5-5.7) g/dL Globulin 4.1 H (2.4-3.5) g/dL Albumin/Globulin Ratio 0.7 L (1.1-2.2) Urine Color (Yellow) Urine Clarity (Clear) Urine pH (5.0-8.0) pH Units Ur Specific [place] (1.010-1.025) Urine Protein (Neg-Trace) mg/dL Urine Glucose (UA) (Normal) mg/dL Urine Ketones (Negative) mg/dL Urine Blood (Negative) Urine Nitrite (Negative) Urine Bilirubin (Negative) Urine Urobilinogen (Normal) mg/dL Ur Leukocyte Esterase (Negative) Urine Microscopic RBC (0-3) per hpf Urine Microscopic WBC (0-3) per hpf Ur Squamous Epith Cells (None-Few) per lpf Urine Bacteria (None-Few) per hpf Hyaline Casts (None-Few) per lpf Ur Culture Indicated? (NO) 07/12/18 Range/Units 19:32 WBC (4.3-11.1) K/mcL RBC (4.19-5.50) M/mcL Hgb (12.9-16.9) g/dL Hct (37.5-50.1) % MCV (83.0-100.0) fL MCH (28.0-33.3) pg MCHC (31.6-35.5) g/dL RDW (11.5-14.5) % Plt Count (140-400) K/mcL MPV (9.4-12.4) fL Immature Gran % (0-4) % Seg Neutrophils % % Lymphocytes % % Monocytes % % Eosinophils % % Basophils % % Neutrophils # (1.6-8.9) K/mcL Lymphocytes # (0.6-4.6) K/mcL Monocytes # (0.0-1.3) K/mcL Eosinophils # (0.0-0.6) K/mcL Basophils # (0.0-0.2) K/mcL PT (9.4-12.1) Seconds INR Sodium (136-145) mEq/L Potassium (3.5-5.1) mEq/L Chloride (98-107) mEq/L Carbon Dioxide (23-29) mEq/L BUN (8-23) mg/dL Creatinine (0.70-1.30) mg/dL Est GFR ( Amer) (> 60) Est GFR (Non-Af Amer) (> 60) BUN/Creatinine Ratio (6-26) Glucose (70-105) mg/dL Calculated Osmolality (280-300) Calcium (8.6-10.3) mg/dL Total Bilirubin (0.3-1.0) mg/dL AST (13-39) Units/L ALT (7-52) Units/L Alkaline Phosphatase (34-104) Units/L Serum Total Protein (6.4-8.9) g/dL Albumin (3.5-5.7) g/dL Globulin (2.4-3.5) g/dL Albumin/Globulin Ratio (1.1-2.2) Urine Color Yellow (Yellow) Urine Clarity Clear (Clear) Urine pH 5.5 (5.0-8.0) pH Units Ur Specific [place] 1.008 L (1.010-1.025) Urine Protein Negative (Neg-Trace) mg/dL Urine Glucose (UA) Normal (Normal) mg/dL Urine Ketones Negative (Negative) mg/dL Urine Blood Negative (Negative) Urine Nitrite Negative (Negative) Urine Bilirubin Negative (Negative) Urine Urobilinogen Normal (Normal) mg/dL Ur Leukocyte Esterase Small H (Negative) Urine Microscopic RBC 5-15 H (0-3) per hpf Urine Microscopic WBC 5-15 H (0-3) per hpf Ur Squamous Epith Cells Many H (None-Few) per lpf Urine Bacteria None Seen (None-Few) per hpf Hyaline Casts None Seen (None-Few) per lpf Ur Culture Indicated? NO. A (NO)
[2018-07-12 20:10] LABS: Albumin 2.8 g/dL (3.5-5.7); Albumin/Globulin Ratio 0.7 (1.1-2.2); Bilirubin,Total 0.6 mg/dL (0.3-1.0); Calcium 8.9 mg/dL (8.6-10.3); Globulin 4.1 g/dL (2.4-3.5); Potassium 3.7 mEq/L (3.5-5.1); Total Protein 6.9 g/dL (6.4-8.9)
[2018-07-12] MEDS ORDERED: *HR* OxyCODONE Immed Rel 5 MG TABLET PO ONE (21:16)
[2018-07-12 21:18] LABS: Bilirubin,Urine Negative (Negative); Blood,Urine Negative (Negative); Clarity,Urine Clear (Clear); Color,Urine Yellow (Yellow); Glucose,Urine (UA) Normal (Normal); Ketones,Urine Negative (Negative); Leukocyte Esterase,Urine Small (Negative); Nitrite,Urine Negative (Negative); PH,Urine 5.5 pH Units (5.0-8.0); Protein,Urine Negative (Neg-Trace); Specific Gravity,Urine 1.008 (1.010-1.025); Urobilinogen,Urine Normal (Normal)
[2018-07-12 21:20] LABS: Bacteria,Urine None Seen per hpf (None-Few); Hyaline Casts,Urine None Seen per lpf (None-Few); Squamous Epithelial Cell,Urine Many per lpf (None-Few)
[2018-07-13] MEDS ORDERED: Naloxone 0.4 MG/ML INJ IVP PRN (02:39)
[2018-07-13] MEDS ORDERED: GuaiFENesin Liq 200 MG/10 ML UDC PO PRN (02:41)
[2018-07-13] MEDS ORDERED: D5% in Water 1,000 ML IVC PRN (02:43)
[2018-07-13] MEDS ORDERED: *HR* Dextrose 50 % in Water (Syg) 50 ML SYRINGE IVP PRN (02:43)
[2018-07-13] MEDS ORDERED: Dextrose Gel 15 GM/37.5 ML TUBE PO PRN ×2 (02:43)
[2018-07-13 03:46] LABS: Basophils # 0.1 K/mcL (0.0-0.2); Basophils % 0.5 %; Eosinophils # 0.3 K/mcL (0.0-0.6); Eosinophils % 2.9 %; Hematocrit 32.3 % (37.5-50.1); Hemoglobin 10.7 g/dL (12.9-16.9); Immature Granulocytes % 0.2 % (0-4); Lymphocytes # 1.8 K/mcL (0.6-4.6); Lymphocytes % 16.9 %; Mean Corpuscular HGB Conc 33.1 g/dL (31.6-35.5); Mean Corpuscular Hemoglobin 30.7 pg (28.0-33.3); Mean Corpuscular Volume 92.6 fL (83.0-100.0); Mean Platelet Volume 10.3 fL (9.4-12.4); Monocytes # 0.9 K/mcL (0.0-1.3); Monocytes % 8.2 %; Neutrophils # 7.5 K/mcL (1.6-8.9); Platelet Count 173 K/mcL (140-400); Red Blood Count 3.49 M/mcL (4.19-5.50); Segmented Neutrophils % 71.3 %
--- NOTE | 2018-07-13 03:48 | Internal Med History&Physical ---
Date of Encounter: 07/13/18 Time of Encounter: 01:40 Internal Medicine - H&P: HPI Chief complaint: abdominal distenstion; difficulty breathing Admitted From: Emergency Dept Plans for Post Hospital Care: Hospice - Home History of present illness: Mr. Vieyra is a 78 year old male who presents to the ER tonight under the advice of his hospice nurse. Patient is enrolled in hospice due to metastatic liver disease with malignant ascites. He has had recurrent paracenteses for symptomatic relief recently. During his last admission, he entertained the thought of a peritoneal drain placement, but he wanted to postpone and discuss the option with his . Since then, he has had rapid accumulation of ascites where he becomes symptomatic with abdominal distention, difficulty breathing, and anasarca. His hospice nurse convinced him to come to the ER tonight to have this done this weekend. He therefore came to the ER and was admitted. No labs were drawn initially but they were drawn as he was admitted to hospitalist service. I reviewed his labs, old records, and then met with patient and his . Patient received a dose of pain medicine and remains a little somnolent. He is arousable but does not provide much history. History is obtained from his . I also reviewed all his old records as well. Patient was diagnosed with hepatocellular carcinoma 2 years ago and declined treatment. He recently enrolled in hospice, but according to documentation and my discussions with his , he remains to be full code. I specifically mentioned chest compressions, life support, and cardioversion. She stated that he would want all of these, at least temporarily. However, he still does not wish to treat his cancer and has refused treatment since initial diagnosis 2 years ago. Regarding the ascites, I informed his and patient that I agree therapeutic treatment and drainage would be appropriate. Unfortunately, it is the weekend and I'm not sure interventional radiology would be available to place a drain. We will try and attempt to contact them to proceed with therapeutic paracentesis this weekend with a permanent drain to be placed at their discretion thereafter. Patient and deny any fevers, chills, night sweats, vomiting, or diarrhea. The main complaint is the increased abdominal girth, scrotal swelling, lower extremity edema, and difficulty breathing due to increased abdominal distention. Patient's states he has gained roughly 50 pounds since last hospital visit. Past Med Surg Social Fam HX - Past Medical History Source: old records reviewed, obtained from family Medical history: cancer, coronary artery disease, diabetes, hyperlipidemia, hypertension Additional medical history: pancreatic, skin, liver cancer. hyperkalemia. dysmetabolic syndrome X. Left Ventricular Hypertrophy. Hepatitis A. Leukocytosis. Gout. Sleep Apnea. Gastroparesis Psychiatric history: no psych history - Past Surgical History Surgical History: angioplasty/stent Additional surgical history: 7 stents - Social History Smoking Status: Former smoker Smokeless Tobacco Status: No Alcohol use: none Drug use: none Current living situation: Home, With Family Activity Level: Mostly sedentary Recent Out of Country Travel Within the Last 8 Weeks: No - Family History Father Adopted: No Family Member Ethnicity: Non- Living Status: Hx Family Cardiac Disorders: Yes Hx Family Respiratory Disorders: Yes Hx Family Cancer: No Hx Family GI Disorders: No Hx Family Endocrine Disorder: No Hx Family Neuromuscular Disorders: No Hx Family Neurologic Disorders: No Hx Family HEENT Disorders: No Hx Family Autoimmune Disorders: No Mother History Unknown: Yes Adopted: No Family Member Ethnicity: Non- Living Status: Hx Family Cardiac Disorders: Yes Hx Family Respiratory Disorders: Yes Hx Family Cancer: No Hx Family GI Disorders: No Hx Family Endocrine Disorder: Yes Hx Family Neuromuscular Disorders: No Hx Family Neurologic Disorders: No Hx Family HEENT Disorders: No Hx Family Autoimmune Disorders: No Internal Medicine - H&P: Meds Docusate Sodium 300 mg PO HS 04/25/17 [History] Gabapentin [Neurontin] 600 mg PO DAILY 10/03/17 [History] Insulin ASPART [NovoLOG] 50 - 80 unit SQ BID 10/03/17 [History] Insulin Glargine [Lantus] 100 unit SQ BID 10/03/17 [History] Clopidogrel [Plavix] 75 mg PO DAILY 10/10/17 [History] Febuxostat [Uloric] 40 mg PO DAILY 10/10/17 [History] Ondansetron [Zofran] 8 mg PO TID PRN 10/10/17 [History] metOLazone [Zaroxolyn] 5 mg PO MOTH 10/10/17 [History] Albuterol Sulfate [Albuterol Inhaler] 2 puff IH Q6H PRN 06/13/18 [History] Aspirin [Lo-Dose Aspirin EC] 81 mg PO DAILY 06/13/18 [History] Diclofenac Sodium [Voltaren] 1 appl TP TID PRN 06/13/18 [History] Glucagon,Human Recombinant [Glucagon Emergency Kit] 1 mg IJ AD PRN 06/13/18 [ History] Guaifenesin [Mucus Relief] 400 mg PO TID PRN 06/13/18 [History] Lactulose 20 gm PO TID 06/13/18 [History] Multivitamin [One Daily Multivitamin] 1 tab PO DAILY 06/13/18 [History] Furosemide [Lasix] 40 mg PO QID PRN #0 06/15/18 [History] Isosorbide MONOnitrate (24 HR) [Imdur] 60 mg PO DAILY #30 tab.er.24h 06/15/18 [ Rx] 3 Allergy/AdvReac Type Severity Reaction Status Date / Time morphine Allergy Difficulty Verified 07/12/18 21:56 Breathing shellfish derived Allergy Difficulty Verified 07/12/18 21:56 Breathing atorvastatin [From Lipitor] AdvReac Muscle Pain Verified 07/12/18 21:56 hydrocodone [From Vicodin] AdvReac Confusion Verified 07/12/18 21:56 ibuprofen [From Motrin] AdvReac Gastrointestinal Verified 07/12/18 21:56 Upset tramadol AdvReac Confusion Verified 07/12/18 21:56 - Constitutional Constitutional: no chills, no fever(s) - EENT Eyes: no blurry vision, no change in vision Ears: no ear pain, no tinnitus Nose, mouth and throat: no nasal congestion, no nasal discharge, no sore throat - Cardiovascular Cardiovascular ROS IM: dyspnea, dyspnea on exertion, edema, no chest pain - Respiratory Respiratory: dyspnea, no cough, no hemoptysis, no chest congestion, no excessive phlegm production, no change in phlegm color - Gastrointestinal Gastrointestinal: bloating, cramping, no hematemesis, no hematochezia, no melena - Genitourinary Genitourinary ROS male: no dysuria, no flank pain, no hematuria - Musculoskeletal Musculoskeletal ROS IM: no arthralgias, no back pain - Integumentary Integumentary IM: no rash, no jaundice - Neurological Neurological ROS: no dizziness, no focal weakness, no frequent falls, no headache(s) - Psychiatric Psychiatric: no anxiety, no depression - Endocrine Endocrine IM: no polydipsia, no polyuria - Allergic/Immunologic Allergic/Immunologic: no GI upset with certain foods - Constitutional Vitals: Temp Pulse Resp BP Pulse Ox 98.2 F 79 18 131/69 93 07/12/18 22:52 07/12/18 22:52 07/12/18 22:52 07/12/18 22:52 07/12/18 22:52 General appearance: Present: A&O X 2, A&O X 3, morbidly obese Exam: patient with markedly distended abdomen and anasarca - Head Head exam: Present: atraumatic, normal inspection - Eye Eye exam: Present: EOMI, PERRL. Absent: scleral icterus Pupils: Present: normal accommodation - ENT ENT exam: Present: mucous membranes dry, normal oropharynx - Neck Neck exam general surgery: Present: full ROM, supple. Absent: tenderness, nuchal rigidity, thyromegaly - Respiratory Respiratory exam: Present: decreased breath sounds (both bases), respiratory distress (mild), rhonchi. Absent: accessory muscle use, chest wall tenderness, rales, wheezes - Cardiovascular Cardiovascular exam: Present: distant heart sounds, RRR, +S1, +S2. Absent: diastolic murmur, systolic murmur - GI/Abdominal GI/Abdominal exam: Present: normal bowel sounds, soft, no peritoneal signs. Absent: guarding, rebound, tenderness Additional comments: distended abdomen with fluid wave and dullness to percussion - Extremities Exam Extremities exam: Present: pedal edema, warm. Absent: joint swelling Additional comments: edema all through legs to abdomen - Back Exam Back exam: Absent: CVA tenderness (L), CVA tenderness (R) - Neurological Exam Neurological exam: Present: alert, CN II-XII intact, oriented X3, no focal deficits Additional comments: somnolent but easily arousable - Psychiatric Psychiatric exam: Present: normal affect, normal mood - Skin Skin exam: Present: dry, intact, warm Internal Med - H&P Results - Labs CBC & Chem 7: 07/12/18 19:02 07/12/18 19:02 - Assessment and plan (1) Ascites Current Visit: Yes Status: Acute Assessment and plan: 1. Will consult IR and try to obtain therapeutic paracentesis this weekend with peritoneal drain placement. 2. Patient very symptomatic and would benefit from a comfort standpoint. Qualifiers: Ascites type: malignant Qualified Code(s): R18.0 - Malignant ascites (2) Liver cancer Current Visit: Yes Status: Chronic Assessment and plan: 1. Consult palliative care for goals of care counseling and assistance. 2. Patient currently enrolled in Hospice. 3. CODE status remains full code as noted by patient and . Qualifiers: Liver malignancy type: hepatocellular carcinoma Qualified Code(s): C22.0 - Liver cell carcinoma (3) DVT prophylaxis Current Visit: Yes Status: Acute Assessment and plan: 1. Heparin SQ.
[2018-07-13 03:52] LABS: INR 1.1; Prothrombin Time 12.3 Seconds (9.4-12.1)
[2018-07-13 03:55] LABS: Activated Partial Thrombo Time 34.2 Seconds (26.0-36.0)
[2018-07-13 04:07] LABS: Albumin 2.3 g/dL (3.5-5.7); Albumin/Globulin Ratio 0.7 (1.1-2.2); Bilirubin,Total 0.5 mg/dL (0.3-1.0); Calcium 8.4 mg/dL (8.6-10.3); Globulin 3.2 g/dL (2.4-3.5); Magnesium 2.1 mg/dL (1.6-2.6); Potassium 3.6 mEq/L (3.5-5.1); Total Protein 5.5 g/dL (6.4-8.9)
[2018-07-13] MEDS: *HR* Heparin 5,000 UNIT/ML VIAL SQ SCH ×3 (07:04→22:26)
[2018-07-13] MEDS: Isosorbide MONOnitrate (24 HR) 60 MG TAB.ER.24H PO SCH (08:35)
[2018-07-13] MEDS: Multivit/Ca/Min/Fe/FA 1 TAB TABLET PO SCH (08:36)
[2018-07-13] MEDS: Gabapentin 300 MG CAPSULE PO SCH (08:36)
[2018-07-13] MEDS: Insulin DETEMIR 100 UNIT/ML X5UNITS SQ SCH ×2 (08:36→22:24)
[2018-07-13] MEDS: Aspirin Enteric Coated 81 MG Tablet PO SCH (08:36)
[2018-07-13] MEDS: Lactulose Oral Soln 20 GM/30 ML UDC PO SCH ×3 (08:37→22:24)
[2018-07-13] MEDS: Insulin LISPRO 300 UNITS/3 ML VIAL SQ SCH ×4 (08:42→22:25)
[2018-07-13] MEDS ORDERED: INSULIN GLARGINE 100 UNIT SQ SCH (09:00)
[2018-07-13] MEDS: *HR* OxyCODONE Immed Rel 5 MG TABLET PO SCH ×2 (10:39→17:00)
[2018-07-13] MEDS: ULORIC 40 MG PO SCH (10:42)
[2018-07-13] MEDS ORDERED: Furosemide 40 MG/4 ML VIAL IVP ONE (12:19)
--- NOTE | 2018-07-13 12:22 | Event Note ---
Date of Encounter: 07/13/18 Time of Encounter: 12:21 Patient complains of abdominal distention and scrotal swelling. Awaiting abdominal paracentesis. We will see what this procedure can be done over the weekend. Otherwise it will have to be done on Sunday under IR guidance. In the meantime, will treat patient with intravenous Lasix and albumin. Monitor renal function closely. Patient does have elevated ammonia. Continue lactulose. Also add rifaximin.
[2018-07-13] MEDS: Albumin 25% 25gram/100mL 25 GM/100 ML IV.SOLN IVC SCH ×4 (12:59→17:00)
[2018-07-13] MEDS: Ondansetron ODT 4 MG TAB.RAPDIS PO PRN (18:19)
--- NOTE | 2018-07-13 20:07 | Event Note ---
Date of Encounter: 07/13/18 Time of Encounter: 20:05 Discussed patient with IR. Recommend placing PleurX drain in on Sunday. They recommend against large volume paracentesis to be better able to place this drain.
[2018-07-13] MEDS ORDERED: Insulin LISPRO 300 UNITS/3 ML VIAL SQ SCH (21:00)
--- NOTE | 2018-07-13 21:11 | IR Procedure Note ---
Date of procedure: 07/13/18 Consent Obtained: Verbal consent, Written consent Timeout: Correct patient and procedure verified, Correct site verified, Time out performed, Skin prep completed Local anesthetic: Lidocaine 1% Indications: Ascites Procedure Performed: Paracentesis Was there an dermatology physician assistant present: No Site/Technique: Ultrasound guided paracentesis Results/Findings: Moderate ascites Estimated blood loss (cc): 0 Complications: None; Tolerated procedure well Post Procedure Treatment Plan: Continue inpatient care Specimen: Serous ascites
[2018-07-13 22:10] LABS: RBC,Peritoneal Fluid < 0.002 M/mcL
[2018-07-13 22:22] LABS: Appearance of Peritoneal Fl CLEAR (Clear)
[2018-07-14] MEDS: *HR* OxyCODONE Immed Rel 5 MG TABLET PO SCH ×4 (00:09→21:05)
[2018-07-14] MEDS: *HR* Heparin 5,000 UNIT/ML VIAL SQ SCH ×3 (05:37→21:08)
[2018-07-14 06:11] LABS: Basophils # 0.1 K/mcL (0.0-0.2); Basophils % 0.4 %; Eosinophils # 0.2 K/mcL (0.0-0.6); Eosinophils % 1.6 %; Hematocrit 31.4 % (37.5-50.1); Hemoglobin 10.3 g/dL (12.9-16.9); Immature Granulocytes % 0.4 % (0-4); Lymphocytes # 1.5 K/mcL (0.6-4.6); Lymphocytes % 11.7 %; Mean Corpuscular HGB Conc 32.8 g/dL (31.6-35.5); Mean Corpuscular Hemoglobin 30.7 pg (28.0-33.3); Mean Corpuscular Volume 93.5 fL (83.0-100.0); Monocytes # 1.1 K/mcL (0.0-1.3); Monocytes % 8.4 %; Platelet Count 151 K/mcL (140-400); Red Blood Count 3.36 M/mcL (4.19-5.50); Red Cell Distribution Width 14.9 % (11.5-14.5); Segmented Neutrophils % 77.5 %
[2018-07-14 06:25] LABS: BUN/Creatinine Ratio 28 (6-26); Blood Urea Nitrogen 36 mg/dL (8-23); Carbon Dioxide 34 mEq/L (23-29); Chloride 100 mEq/L (98-107); Glucose 175 mg/dL (70-105); Osmolality,Calculated 301 (280-300); Potassium 4.1 mEq/L (3.5-5.1); Sodium 139 mEq/L (136-145); eGFR For Non-African Americans 54 (> 60)
[2018-07-14] MEDS: Multivit/Ca/Min/Fe/FA 1 TAB TABLET PO SCH (08:18)
[2018-07-14] MEDS: Gabapentin 300 MG CAPSULE PO SCH (08:18)
[2018-07-14] MEDS: Lactulose Oral Soln 20 GM/30 ML UDC PO SCH ×3 (08:18→21:06)
[2018-07-14] MEDS: Aspirin Enteric Coated 81 MG Tablet PO SCH (08:18)
[2018-07-14] MEDS: ULORIC 40 MG PO SCH (08:20)
[2018-07-14] MEDS: Insulin LISPRO 300 UNITS/3 ML VIAL SQ SCH ×4 (08:23→21:24)
[2018-07-14] MEDS: Insulin DETEMIR 100 UNIT/ML X5UNITS SQ SCH ×2 (08:29→21:26)
[2018-07-14] MEDS: Isosorbide MONOnitrate (24 HR) 60 MG TAB.ER.24H PO SCH (11:01)
[2018-07-14] MEDS: Furosemide 40 MG/4 ML VIAL IVP SCH ×2 (11:11→17:01)
[2018-07-14] MEDS: Albumin 25% 25gram/100mL 25 GM/100 ML IV.SOLN IVC SCH ×4 (11:13→16:07)
[2018-07-14] MEDS: Ondansetron ODT 4 MG TAB.RAPDIS PO PRN (12:38)
--- NOTE | 2018-07-14 16:15 | Internal Med Progress Note ---
Hospitalist Progress Note - Encounter Date of Encounter: 07/14/18 Time of Encounter: 09:25 - Subjective Interval History: Patient had an eventful night yesterday. He developed sudden onset dyspnea along with severe abdominal pain last evening and became less responsive. As such interventional radiology was called and they came in to do the paracentesis. According to patient's family, 5 L of serous fluid was drained. Since then he is feeling much better. He did complain of shortness of breath earlier this morning but seems to have improved now. No chest pain. No palpitations. Does continue to have scrotal edema. - Exam Vitals: Temp Pulse Resp BP Pulse Ox 98.0 F 90 16 150/58 99 07/14/18 12:55 07/14/18 12:55 07/14/18 12:55 07/14/18 12:55 07/14/18 12:55 Exam: General: Patient is alert, no acute distress, oriented x 3 Respiratory: Decreased air entry at both bases No wheezing or crackles. Cardiovascular: Regular rate and rhythm. s1 and s2 normal No clicks, rubs, gallops, or murmurs. Bilateral pedal edema Abdomen: Abdomen is distended, firm. Bowel sounds are present Musculoskeletal: Spontaneously moving all extremities Skin: warm, dry, intact. Neuro: Alert oriented x 3 normal cranial nerves, no focal deficits - Assessment and Plan (1) Ascites Current Visit: Yes Status: Acute Assessment and Plan: Status post large volume paracentesis done yesterday. Discussed goals of care with family. They are considering changing CODE STATUS. Wish to continue hospice. The deny refusing Pleurx catheter last time the patient was admitted here although medical records states that patient was scheduled to undergo this procedure and refused at the last minute. He is willing to undergo this procedure during this hospital stay. We will consult interventional radiology in the morning. Also consult palliative care. Will hold Plavix in anticipation for procedure. (2) Liver cancer Current Visit: Yes Status: Chronic Assessment and Plan: Overall poor prognosis. Recommend changing CODE STATUS and transition to hospice as patient not willing to the treatment. Does have cirrhosis and hepatic encephalopathy. Continue lactulose and Xifaxan. (3) DVT prophylaxis Current Visit: Yes Status: Acute Assessment and Plan: On subcutaneous heparin - Time Spent with Patient Total time spent is greater than 50% in coordination of care (as documented) at patient's floor/unit and/or counseling patient: Internal Medicine: Result - Labs CBC & Chem 7: 07/14/18 05:32 07/14/18 05:32 Labs: Short CBC 07/14/18 Range/Units 05:32 WBC 12.9 H (4.3-11.1) K/mcL Hgb 10.3 L (12.9-16.9) g/dL Hct 31.4 L (37.5-50.1) % Plt Count 151 (140-400) K/mcL Neutrophils # 10.0 H (1.6-8.9) K/mcL BMP 07/14/18 05:32 Sodium 139 Potassium 4.1 Chloride 100 Carbon Dioxide 34 H BUN 36 H Creatinine 1.28 Glucose 175 H Calcium 9.0 Cardiac Enzymes 07/13/18 Range/Units 18:52 Troponin I < 0.03 (< 0.04) ng/mL - ABG Interpretation ABG results: PT/INR, D-dimer PT 12.3 Seconds (9.4-12.1) H 07/13/18 03:29 - Impressions Impressions Paracentesis Ultrasound 07/13/18 11:34 IMPRESSION: Successful ultrasound guided paracentesis. D/ / Brenton Falcon MD / Brenton Falcon MD Interpreting Provider: Brenton Falcon MD Chest X-Ray 07/13/18 19:16 IMPRESSION: Cardiomegaly. Findings typical of mild congestive heart failure. Pneumonitis is a consideration as well. D/ / Amado Puckett / Amado Puckett Interpreting Provider: Amado Puckett Consult Discharge Plan - Plan [facility] [Primary Care Provider[facility] - (1) Ascites Qualifiers: Ascites type: malignant Qualified Code(s): R18.0 - Malignant ascites (2) Liver cancer Qualifiers: Liver malignancy type: hepatocellular carcinoma Qualified Code(s): C22.0 - Liver cell carcinoma
[2018-07-14] MEDS ORDERED: OXYCODONE Oral CONC 10 MG/0.5 ML ORAL.SYG SL PRN (16:54)
--- NOTE | 2018-07-14 17:11 | Event Note ---
Date of Encounter: 07/14/18 Time of Encounter: 17:09 Patient complaining of worsening dyspnea. Transitioned to BiPAP for now. We will medicate with oxycodone sublingually for pain for now. Patient does appear anxious. If was code on does not help with his symptoms, will give a small dose of Ativan to help control anxiety. Discussed with patient and family about CODE STATUS. Patient expresses wish to be DNR/DNI at this time. Will make change accordingly.
[2018-07-14] MEDS ORDERED: Lactulose 200 GM, Sodium Chloride IRRigation 700 ML RC ONE (18:34)
[2018-07-14] MEDS ORDERED: *HR* LORazepam 2 MG/ML VIAL IVP ONE (21:39)
[2018-07-15] MEDS: *HR* OxyCODONE Immed Rel 5 MG TABLET PO SCH ×4 (00:14→17:59)
[2018-07-15 04:11] LABS: Basophils % 0.2 %; Eosinophils % 0.1 %; Hematocrit 31.9 % (37.5-50.1); Hemoglobin 10.2 g/dL (12.9-16.9); Immature Granulocytes % 2.2 % (0-4); Lymphocytes # 1.1 K/mcL (0.6-4.6); Lymphocytes % 5.5 %; Mean Corpuscular Hemoglobin 30.8 pg (28.0-33.3); Mean Corpuscular Volume 96.4 fL (83.0-100.0); Mean Platelet Volume 11.2 fL (9.4-12.4); Monocytes # 1.6 K/mcL (0.0-1.3); Monocytes % 8.5 %; Neutrophils # 15.9 K/mcL (1.6-8.9); Platelet Count 143 K/mcL (140-400); Red Blood Count 3.31 M/mcL (4.19-5.50); Red Cell Distribution Width 15.2 % (11.5-14.5); Segmented Neutrophils % 83.5 %
[2018-07-15 05:32] LABS: Albumin 4.1 g/dL (3.5-5.7); BUN/Creatinine Ratio 27 (6-26); Blood Urea Nitrogen 36 mg/dL (8-23); Calcium 9.6 mg/dL (8.6-10.3); Carbon Dioxide 34 mEq/L (23-29); Chloride 99 mEq/L (98-107); Glucose 150 mg/dL (70-105); Osmolality,Calculated 305 (280-300); Potassium 4.2 mEq/L (3.5-5.1); Sodium 142 mEq/L (136-145); eGFR For Non-African Americans 53 (> 60)
[2018-07-15] MEDS: *HR* Heparin 5,000 UNIT/ML VIAL SQ SCH ×3 (06:30→21:14)
[2018-07-15] MEDS: Piperacillin/Tazobactam 3.375 GM in 0.9 % Sodium Chloride Mini Bag 100 ML IVPB SCH ×2 (09:12→15:25)
[2018-07-15] MEDS: Furosemide 40 MG/4 ML VIAL IVP SCH ×2 (09:15→17:07)
[2018-07-15] MEDS: Isosorbide MONOnitrate (24 HR) 60 MG TAB.ER.24H PO SCH (09:16)
[2018-07-15] MEDS: Multivit/Ca/Min/Fe/FA 1 TAB TABLET PO SCH (09:16)
[2018-07-15] MEDS: Lactulose Oral Soln 20 GM/30 ML UDC PO SCH ×3 (09:16→21:18)
[2018-07-15] MEDS: Aspirin Enteric Coated 81 MG Tablet PO SCH (09:16)
[2018-07-15] MEDS: Gabapentin 300 MG CAPSULE PO SCH (09:16)
[2018-07-15] MEDS ORDERED: *HR* LORazepam Oral Conc 2 MG/ML SL PRN (09:20)
[2018-07-15] MEDS: Insulin LISPRO 300 UNITS/3 ML VIAL SQ SCH ×4 (09:32→20:50)
--- NOTE | 2018-07-15 10:19 | Palliative - Consult Note ---
Date of Encounter: 07/15/18 Time of Encounter: 09:15 - Assessment and Plan (1) Dyspnea Current Visit: Yes Status: Acute Assessment and plan: Patient reports increased shortness of breath. Had paracentesis performed 2 days ago and reports is did help; however, feels worsening shortness of breath. Changed Oxycodone to increase frequency for pain and shortness of breath. Added Duonebs to assist with breaking up chest congestion. Qualifiers: Dyspnea type: shortness of breath Qualified Code(s): R06.02 - Shortness of breath; R06.00 - Dyspnea, unspecified; R06.01 - Orthopnea (2) Anxiety Current Visit: Yes Status: Acute Assessment and plan: Patient reports increased anxiety. Family concerned for increase lethargy related to medication. Changed Ativan to 0.5 mg Q3h to allow patient to have more frequently at a lower dose. (3) Diabetic foot ulcer Current Visit: No Status: Chronic Assessment and plan: Wound care consulted; recommendations appreciated. Qualifiers: Diabetic foot ulcer location: unspecified part of foot Diabetes mellitus type: type 2 Laterality: right Non-pressure ulcer stage: with necrosis of muscle Qualified Code(s): E11.621 - Type 2 diabetes mellitus with foot ulcer; L97.513 - Non-pressure chronic ulcer of other part of right foot with necrosis of muscle (4) Ascites Current Visit: Yes Status: Acute Assessment and plan: IR consult appreciated. Plan to have Pleurx drain placed once able. Family in agreement. Qualifiers: Ascites type: malignant Qualified Code(s): R18.0 - Malignant ascites (5) Goals of care, counseling/discussion Current Visit: No Status: Acute Assessment and plan: Conducted GOC discussion with patient, patient's , and patient's daughter. Family desires to have Pleurx drain placed prior to discharge. Desire for CODE STATUS to remain DNR CCA/DNI at present time. Family in distress over continued dyspnea, pain, and anxiety; however, also desire to keep patient awake. Educated on goal of hospice for patient to be kept comfortable and enjoy the time the patient has; verbalized agreement. Discussed use of BiPAP for comfort with air hunger type symptoms and educated and idea of BiPAP not being of curative nature; verbalized understanding, family expressed desire for Palliative to have been present yesterday to assist with symptom management and increased understanding of hospice. Family appears exhausted. Denies questions at present time. Palliative care to followup this afternoon to ensure symptom improvement and no further needs identified by family, family expressed interest in repeat visit after allowing time to rest. Post family meeting met with Dr. Springer regarding goals of care. Dr. Springer agreed patient to stay in patient until Pleurx drain placement. Dr. Springer reported he is going to follow up with IR regarding placement date. Palliative care will continue to follow to assist with management of symptoms and goals of care. (6) Generalized pain Current Visit: No Status: Acute Assessment and plan: Patient reports continued generalized pain, increased in scrotum and sacrum. Patient rated a 7/10, pain medication helps, and position makes worse. Increased frequency of PRN Oxycodone SL for increased comfort. (7) Hepatocellular carcinoma Current Visit: No Status: Chronic Assessment and plan: Patient of [facility] hospice. Palliative-CN HPI - Data of Consult Patient: known to practice within the last 3 years Consult date: 07/13/18 Requesting Physician: Don Springer MD [facility] - Consult Narrative Palliative Care/Comfort Measures: Palliative care Reason for consult: Goals of care History of present illness: Mr. Vieyra is a 78 year old male Arrived to [facility] on 07/12/18, from home per recommendation of [facility] nurse due to increased difficulty breathing and ascites. Per report from , patient had gained 50 pounds of fluid since recent hospital stay. Patient is known to Palliative care team with hepatocellular cancer with mets. Patient admitted for ascites with need for paracentesis. PMH: cancer, coronary artery disease, diabetes, hyperlipidemia, hypertension. On last admission, patient and his refused pleurx drain placement and desired to talk the matter over together at a later time; agreement to plan for placement this admission. Interventional radiology drained 5400 cc of serous ascites on 07/13/18. Chest x-ray performed showing, Cardiomegaly and findings typical of mild CHF and pneumonitis is a consideration as well. 07/14/18: patient reported worsening dyspnea; transitioned to BiPAP, appearing anxious, CODE STATUS changed to DNRCCA/DNI per primary team. Repeat chest x-ray showing Pulmonary edema with pleural effusion on the right; heart is mildly enlarged. Palliative care consulted for Goals of care. Patient sitting up in bed with , daughter, and nurse at bedside upon arrival. Patient is alert and oriented times 3; however, has difficulty participating in conversation as having increased dyspnea and "in misery." Nurse reported that patients pleurx drain placement is unable to be performed until Sunday d/t taking Plavix yesterday; family expressed desire for patient to stay inpatient until Pleurx placement, acknowledged. Patient reports pain 7/ 10 to sacral and buttocks area, d/t swelling. Patient reports increased anxiety. Patient reports increased dyspnea; however, reports it has improved some since paracentesis. Patient denies nausea/vomiting. Reports has had 1 bowel movement since admission. Patient has Oxycodone Scheduled every 6 hours and Oxycodone SL PRN; has taken 4 doses in the last 24 hours, reports continued misery. Patient has Ativan SL PRN ordered, has taken 1 dose in the last 24 hours. Patient has Albuterol Inhaler for shortness of breath, has taken 1 dose. Docusate and Lactulose ordered for increased ammonia and constipation; no bowel movement documented since admission. CC: Don Springer MD - Time Spent with Patient Time: Total time spent is greater than 50% in coordination of care (as documented) at patient's floor/unit and/or counseling patient: Greater than 35 minutes Past Med Surg Social Fam HX - Past Medical History Medical history: cancer, coronary artery disease, diabetes, hyperlipidemia, hypertension Additional medical history: pancreatic, skin, liver cancer. hyperkalemia. dysmetabolic syndrome X. Left Ventricular Hypertrophy. Hepatitis A. Leukocytosis. Gout. Sleep Apnea. Gastroparesis Psychiatric history: no psych history - Past Surgical History Surgical History: angioplasty/stent Additional surgical history: 7 stents - Social History Smoking Status: Former smoker Smokeless Tobacco Status: No Alcohol use: none Drug use: none - Family History Father Adopted: No Family Member Ethnicity: Non- Living Status: Hx Family Cardiac Disorders: Yes Hx Family Respiratory Disorders: Yes Hx Family Cancer: No Hx Family GI Disorders: No Hx Family Endocrine Disorder: No Hx Family Neuromuscular Disorders: No Hx Family Neurologic Disorders: No Hx Family HEENT Disorders: No Hx Family Autoimmune Disorders: No Mother History Unknown: Yes Adopted: No Family Member Ethnicity: Non- Living Status: Hx Family Cardiac Disorders: Yes Hx Family Respiratory Disorders: Yes Hx Family Cancer: No Hx Family GI Disorders: No Hx Family Endocrine Disorder: Yes Hx Family Neuromuscular Disorders: No Hx Family Neurologic Disorders: No Hx Family HEENT Disorders: No Hx Family Autoimmune Disorders: No Medications and Allergies Docusate Sodium 300 mg PO HS 04/25/17 [History] Gabapentin [Neurontin] 600 mg PO DAILY 10/03/17 [History] Insulin ASPART [NovoLOG] 50 - 80 unit SQ BID 10/03/17 [History] Insulin Glargine [Lantus] 100 unit SQ BID 10/03/17 [History] Clopidogrel [Plavix] 75 mg PO DAILY 10/10/17 [History] Febuxostat [Uloric] 40 mg PO DAILY 10/10/17 [History] Ondansetron [Zofran] 8 mg PO TID PRN 10/10/17 [History] metOLazone [Zaroxolyn] 5 mg PO MOTH 10/10/17 [History] Albuterol Sulfate [Albuterol Inhaler] 2 puff IH Q6H PRN 06/13/18 [History] Aspirin [Lo-Dose Aspirin EC] 81 mg PO DAILY 06/13/18 [History] Diclofenac Sodium [Voltaren] 1 appl TP TID PRN 06/13/18 [History] Glucagon,Human Recombinant [Glucagon Emergency Kit] 1 mg IJ AD PRN 06/13/18 [ History] Guaifenesin [Mucus Relief] 400 mg PO TID PRN 06/13/18 [History] Lactulose 20 gm PO TID 06/13/18 [History] Multivitamin [One Daily Multivitamin] 1 tab PO DAILY 06/13/18 [History] Furosemide [Lasix] 40 mg PO QID PRN #0 06/15/18 [History] Isosorbide MONOnitrate (24 HR) [Imdur] 60 mg PO DAILY #30 tab.er.24h 06/15/18 [ Rx] 3 Allergy/AdvReac Type Severity Reaction Status Date / Time morphine Allergy Difficulty Verified 07/12/18 21:56 Breathing shellfish derived Allergy Difficulty Verified 07/12/18 21:56 Breathing atorvastatin [From Lipitor] AdvReac Muscle Pain Verified 07/12/18 21:56 hydrocodone [From Vicodin] AdvReac Confusion Verified 07/12/18 21:56 ibuprofen [From Motrin] AdvReac Gastrointestinal Verified 07/12/18 21:56 Upset tramadol AdvReac Confusion Verified 07/12/18 21:56 ROS unobtainable: due to mental status (History obtained from , daughter, and patient as patient could participate.) - Constitutional Constitutional ROS PAL: decreased appetite, no chills, no fever(s), no frequent falls, no weight loss - Cardiovascular Cardiovascular ROS: dyspnea on exertion, edema, leg edema, pedal edema, no chest pain - Respiratory Respiratory: dyspnea, dyspnea on exertion - Gastrointestinal Gastrointestinal: abdominal pain, change in stool character, constipation, no nausea, no vomiting - Genitourinary Genitourinary ROS male: testicular pain (Scrotal edema.) - Musculoskeletal Musculoskeletal ROS IM: no back pain - Integumentary ROS Integumentary: dry skin, wounds - Neurological Neurological ROS: numbness - Psychiatric Psychiatric general PM: anxiety, difficulty concentrating Palliative Care-Exam - Constitutional Vitals: Temp Pulse Resp BP Pulse Ox 98.4 F 96 18 129/83 100 07/15/18 07:04 07/15/18 07:04 07/15/18 07:04 07/15/18 07:04 07/15/18 07:04 General appearance: Present: cooperative, mild distress, morbidly obese - Head Head Exam: Present: atraumatic, normal inspection - Expanded Head Exam Head exam expanded IM: Absent: raccoon eyes - Eye Eye exam: Present: EOMI, normal appearance, conjuntiva pink. Absent: periorbital swelling, periorbital tenderness Pupils: Present: normal accommodation, PERRL - ENT ENT exam: Present: mucous membranes moist - Expanded ENT Exam Mouth Exam: Present: normal external inspection. Absent: drooling - Neck Neck exam: Present: full ROM, normal inspection - Respiratory Respiratory exam: Present: accessory muscle use, rhonchi, wheezes - Expanded Respiratory Exam Location: rhonchi: Right, Upper, Lower, Left, wheezes: Right, Upper, Lower - Cardiovascular Cardiovascular exam: Present: +S1, +S2 - Expanded Cardiovascular Exam Peripheral pulses: 2+: Radial (L), Radial (R) - GI/Abdominal Exam GI/Abdominal exam: Present: diminished bowel sounds, distended. Absent: guarding, tenderness - Expanded GI/Abdominal Exam GI/Abdominal exam: Present: ascites - Rectal Rectal Exam: Present: deferred - Extremities Exam Extremities exam: Present: calf tenderness, pedal edema. Absent: normal inspection (dressing intact.) - Expanded Lower Extremities Exam Lower Leg exam: Present: erythema. Absent: normal inspection - Neurological Exam Neurological exam: Present: alert, altered, oriented X3, strengths equal and symetr throughout - Expanded Neurological Exam Patient oriented to: Present: person, place, time Coma Scale Eye Opening: To Voice Coma Scale Motor Response: Obeys Commands Coma Scale Verbal Response: Oriented Coma Scale Total: 14 - Psychiatric Psychiatric exam: Present: anxious Internal Medicine - CN: Reslt - Labs CBC & Chem 7: 07/15/18 04:00 07/15/18 04:46 Labs: Short CBC 07/15/18 Range/Units 04:00 WBC 19.0 H (4.3-11.1) K/mcL Hgb 10.2 L (12.9-16.9) g/dL Hct 31.9 L (37.5-50.1) % Plt Count 143 (140-400) K/mcL Neutrophils # 15.9 H (1.6-8.9) K/mcL BMP 07/15/18 04:46 Sodium 142 Potassium 4.2 Chloride 99 Carbon Dioxide 34 H BUN 36 H Creatinine 1.31 H Glucose 150 H Calcium 9.6 Liver Function 07/15/18 Range/Units 04:46 Albumin 4.1 (3.5-5.7) g/dL - ABG Interpretation ABG results: PT/INR, D-dimer PT 12.3 Seconds (9.4-12.1) H 07/13/18 03:29 Consult Discharge Plan - Plan [facility]errals: [facility] [Primary Care Provider] - Palliative Quality Palliative Quality: Screen for Code Status: Yes, Screen for Goals of Care: Yes, Screen for Pain: Yes, If Pain Regimen Started, Initiate Bowel Regimen: Yes, Screen for Nausea/Vomitting: Yes
[2018-07-15] MEDS: Ipratropium/Albuterol Neb 3 ML IH SCH ×4 (10:58→23:03)
[2018-07-15] MEDS: Ondansetron ODT 4 MG TAB.RAPDIS PO PRN (11:18)
[2018-07-15] MEDS: Sennosides/Docusate Sodium TABLET PO SCH ×2 (11:19→21:18)
[2018-07-15] MEDS: OXYCODONE Oral CONC 10 MG/0.5 ML ORAL.SYG SL PRN (11:19)
[2018-07-15] MEDS: Insulin DETEMIR 100 UNIT/ML X5UNITS SQ SCH ×2 (11:23→20:51)
--- NOTE | 2018-07-15 13:26 | Internal Med Progress Note ---
Hospitalist Progress Note - Encounter Date of Encounter: 07/15/18 Time of Encounter: 09:00 - Subjective Interval History: Patient with history of hepatocellular carcinoma who has declined treatment presented to the ER with complaints of abdominal distention and shortness of breath. Patient gets regular paracentesis as outpatient and is currently listed as being on hospice. He underwent urgent paracentesis Sunday night with some improvement in his symptoms. He continues to have dyspnea and was on BiPAP for a short while yesterday. He seems been transitioned to 4 L nasal cannula but he continues to report shortness of breath. Patient had changed his CODE STATUS to DNR/DNI and wishes to have palliative Pleurx catheter placed for paracentesis at home. He had not had a bowel movement despite taking lactulose and so was given a lactulose enema last night and had a bowel movement after that. - Exam Vitals: Temp Pulse Resp BP Pulse Ox 96.5 F L 96 20 141/82 100 07/15/18 12:05 07/15/18 12:05 07/15/18 12:05 07/15/18 12:05 07/15/18 12:05 Exam: General: Patient is somnolent but easily awakes , in moderate distress, oriented x 3 ENT: Mucous membranes moist Respiratory: Bilateral wheezing, coarse breath sounds at bases Cardiovascular: Regular rate and rhythm. s1 and s2 normal No clicks, rubs, gallops, or murmurs. Bilateral pedal edema Abdomen: Abdomen is soft, nontender. Bowel sounds are present Musculoskeletal: Spontaneously moving all extremities Skin: warm, dry, intact. Neuro: oriented x 3 , somnolent but easily awakes Psych: Patient's affect is Anxious - Assessment and Plan (1) Pulmonary edema Current Visit: Yes Status: Acute Assessment and Plan: Due to fluid overload with underlying hepatitis alert carcinoma and cirrhosis. On intravenous Lasix. Attempted trial of albumin and Lasix yesterday. Has not had good response so far. Continues to have a significant pedal edema and chest x-ray shows worsening pulmonary edema. Patient's CODE STATUS has been changed to DNR/DNI. Use BiPAP as needed. High risk for complications (2) Pneumonia Current Visit: Yes Status: Suspected Assessment and Plan: Patient has pulmonary edema per chest x-ray but also has leukocytosis and at high risk for aspiration. Will treat him empirically with antibiotics. Check blood cultures and pro calcitonin levels. (3) Ascites Current Visit: Yes Status: Acute Assessment and Plan: Per discussion with family members, plan to place Pleurx drain for palliative paracentesis at home. Patient has been on Plavix which was held yesterday. According to interventional radiology, he needs to be off it for at least 5 days. We will continue to monitor closely in the interim. Initial peritoneal fluid analysis does not show any signs of infection. Patient did have paracentesis on Sunday and about 5 L of fluid was removed. (4) Liver cancer Current Visit: Yes Status: Chronic Assessment and Plan: Overall poor prognosis. Patient appears to be declining much more quickly now. Palliative care consult appreciated. Discussed with family members today. They would like to pursue treatment but at the same time keep the patient as comfortable as possible. As such start him on low-dose Ativan for symptom treatment of anxiety. They recognize that this can make the patient more somnolent but understand that he is in a lot of discomfort and pain and there are limited options in managing him. On lactulose to manage hepatic encephalopathy. Ammonia levels have improved today. (5) Diabetes Current Visit: Yes Status: Chronic Assessment and Plan: Blood sugars are well controlled. Continue current insulin regimen (6) DVT prophylaxis Current Visit: Yes Status: Acute Assessment and Plan: On subcutaneous heparin (7) HTN (hypertension) Current Visit: Yes Status: Chronic Assessment and Plan: Blood pressure fairly controlled. We will continue to monitor patient. On Imdur. (8) Chronic kidney disease, stage II (mild) Current Visit: Yes Status: Acute Assessment and Plan: Patient appears to have underlying chronic kidney disease stage II. Creatinine 1.31. Will monitor closely as patient is receiving IV Lasix. - Time Spent with Patient Total time spent is greater than 50% in coordination of care (as documented) at patient's floor/unit and/or counseling patient: Internal Medicine: Result - Labs CBC & Chem 7: 07/15/18 04:00 07/15/18 04:46 Labs: Short CBC 07/15/18 Range/Units 04:00 WBC 19.0 H (4.3-11.1) K/mcL Hgb 10.2 L (12.9-16.9) g/dL Hct 31.9 L (37.5-50.1) % Plt Count 143 (140-400) K/mcL Neutrophils # 15.9 H (1.6-8.9) K/mcL BMP 07/15/18 04:46 Sodium 142 Potassium 4.2 Chloride 99 Carbon Dioxide 34 H BUN 36 H Creatinine 1.31 H Glucose 150 H Calcium 9.6 Liver Function 07/15/18 Range/Units 04:46 Albumin 4.1 (3.5-5.7) g/dL - ABG Interpretation ABG results: PT/INR, D-dimer PT 12.3 Seconds (9.4-12.1) H 07/13/18 03:29 Consult Discharge Plan - Plan [facility]errals: [facility] [Primary Care Provider] - (1) Pulmonary edema Qualifiers: Chronicity: acute Qualified Code(s): J81.0 - Acute pulmonary edema (2) Pneumonia Qualifiers: Pneumonia type: aspiration pneumonia Aspiration pneumonia type: unspecified Laterality: right Lung location: lower lobe of lung Qualified Code(s): J69.0 - Pneumonitis due to inhalation of food and vomit (3) Ascites Qualifiers: Ascites type: malignant Qualified Code(s): R18.0 - Malignant ascites (4) Liver cancer Qualifiers: Liver malignancy type: hepatocellular carcinoma Qualified Code(s): C22.0 - Liver cell carcinoma (5) Diabetes Qualifiers: Diabetes mellitus type: type 2 Diabetes mellitus correction insulin use: with terminal 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
[2018-07-15] MEDS: *HR* LORazepam Oral Conc 2 MG/ML SL PRN (15:24)
[2018-07-15] MEDS: Gentamicin Oint 15 GM TUBE TP SCH (15:34)
--- NOTE | 2018-07-15 17:47 | Electrocardiograph Report ---
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
[2018-07-15] MEDS: Desitin (Zinc Oxide) 56 GM TUBE TP SCH (21:14)
[2018-07-16] MEDS: *HR* OxyCODONE Immed Rel 5 MG TABLET PO SCH ×4 (00:10→16:45)
[2018-07-16] MEDS: Piperacillin/Tazobactam 3.375 GM in 0.9 % Sodium Chloride Mini Bag 100 ML IVPB SCH ×3 (00:10→16:46)
[2018-07-16] MEDS: Ipratropium/Albuterol Neb 3 ML IH SCH ×6 (04:03→23:51)
[2018-07-16] MEDS: *HR* Heparin 5,000 UNIT/ML VIAL SQ SCH ×3 (05:38→21:08)
[2018-07-16 05:50] LABS: Basophils # 0.1 K/mcL (0.0-0.2); Basophils % 0.6 %; Eosinophils # 0.3 K/mcL (0.0-0.6); Eosinophils % 1.2 %; Hematocrit 32.7 % (37.5-50.1); Hemoglobin 10.3 g/dL (12.9-16.9); Immature Granulocytes % 3.6 % (0-4); Lymphocytes # 3.3 K/mcL (0.6-4.6); Lymphocytes % 15.2 %; Mean Corpuscular HGB Conc 31.5 g/dL (31.6-35.5); Mean Corpuscular Volume 98.5 fL (83.0-100.0); Mean Platelet Volume 11.5 fL (9.4-12.4); Monocytes # 2.4 K/mcL (0.0-1.3); Monocytes % 10.9 %; Neutrophils # 14.9 K/mcL (1.6-8.9); Nucleated Red Blood Cells 0.1 /100 WBC (0); Platelet Count 192 K/mcL (140-400); Red Blood Count 3.32 M/mcL (4.19-5.50); Red Cell Distribution Width 15.5 % (11.5-14.5); Segmented Neutrophils % 68.5 %
[2018-07-16 06:15] LABS: Albumin 3.9 g/dL (3.5-5.7); Albumin/Globulin Ratio 1.2 (1.1-2.2); Bilirubin,Total 1.3 mg/dL (0.3-1.0); Calcium 9.4 mg/dL (8.6-10.3); Globulin 3.2 g/dL (2.4-3.5); Total Protein 7.1 g/dL (6.4-8.9)
[2018-07-16] MEDS: ULORIC 40 MG PO SCH (08:07)
[2018-07-16] MEDS: Sennosides/Docusate Sodium TABLET PO SCH ×2 (08:15→21:05)
[2018-07-16] MEDS: Aspirin Enteric Coated 81 MG Tablet PO SCH (08:15)
[2018-07-16] MEDS: Isosorbide MONOnitrate (24 HR) 60 MG TAB.ER.24H PO SCH (08:15)
[2018-07-16] MEDS: Gabapentin 300 MG CAPSULE PO SCH (08:15)
[2018-07-16] MEDS: Lactulose Oral Soln 20 GM/30 ML UDC PO SCH ×3 (08:15→21:06)
[2018-07-16] MEDS: Multivit/Ca/Min/Fe/FA 1 TAB TABLET PO SCH (08:15)
[2018-07-16] MEDS: Furosemide 40 MG/4 ML VIAL IVP SCH ×2 (08:16→16:46)
[2018-07-16] MEDS: Insulin DETEMIR 100 UNIT/ML X5UNITS SQ SCH ×2 (08:32→21:06)
[2018-07-16] MEDS: Insulin LISPRO 300 UNITS/3 ML VIAL SQ SCH ×4 (08:33→21:08)
[2018-07-16] MEDS: Gentamicin Oint 15 GM TUBE TP SCH (08:37)
[2018-07-16] MEDS: Desitin (Zinc Oxide) 56 GM TUBE TP SCH ×3 (08:38→21:34)
--- NOTE | 2018-07-16 10:15 | Palliative Progress Note ---
Date of Encounter: 07/16/18 Time of Encounter: 09:45 - Assessment and plan (1) Dyspnea Current Visit: Yes Status: Acute Assessment and plan: Patient having increased dyspnea during assessment. Has Oxycodone SL PRN, received 1 dose in the last 24 hours; requested Abigail RN to bring patient dose. Qualifiers: Dyspnea type: shortness of breath Qualified Code(s): R06.02 - Shortness of breath; R06.00 - Dyspnea, unspecified; R06.01 - Orthopnea (2) Anxiety Current Visit: Yes Status: Acute Assessment and plan: Patient denies anxiety during assessment.Patient received 1 dose of PRN Ativan in the last 24 hours; continue PRN. (3) Diabetic foot ulcer Current Visit: No Status: Chronic Assessment and plan: Wound care consult appreciated. Qualifiers: Diabetic foot ulcer location: unspecified part of foot Diabetes mellitus type: type 2 Laterality: right Non-pressure ulcer stage: with necrosis of muscle Qualified Code(s): E11.621 - Type 2 diabetes mellitus with foot ulcer; L97.513 - Non-pressure chronic ulcer of other part of right foot with necrosis of muscle (4) Ascites Current Visit: Yes Status: Acute Assessment and plan: Patient having increased ascites noted. Patient ordered to have Pleurx drain placed Sunday; however, now having increased WBC, tachycardia, and worsening clinical picture. May need to re-assess GOC with family. Qualifiers: Ascites type: malignant Qualified Code(s): R18.0 - Malignant ascites (5) Goals of care, counseling/discussion Current Visit: No Status: Acute Assessment and plan: Patient's daughter whom is present at bedside reports family members to all be present at 2 pm. Will conduct family meeting at that time. Conducted family meeting from [phone] pm. Patient's children in attendance, refused to attend. In agreement that patient is clinically deteriorating and my be imminent. Verbalized understanding of risk of Pleurx. Desires at minimum paracentesis before discharge, even if unstable to perform pleurx with order to have pleurx placed outpatient. Will continue to monitor patient for signs of worsening clinical condition. Informed family concern with increasing WBC, HR, and increased dyspnea. Explained difference in DNRCC and DNRCCA/DNI. Continues to desire current treatment plan at this time. Will re-evaluate as week progresses and family will notify primary team or palliative team of decision to transition to DNRCC if they do decide. Will continue to follow this patient. (6) Generalized pain Current Visit: No Status: Acute Assessment and plan: Patient having pain; however, unable to rate. Patient's scheduled Roxicodone has been administered twice in the last 24 hours; held overnight due to patient sleeping. Also has PRN Oxycodone SL, has received 1 dose in the last 24 hours. Continue PRN for pain and dyspnea. (7) Hepatocellular carcinoma Current Visit: No Status: Chronic Assessment and plan: [facility] patient. - Time Spent With Patient Total time spent is greater than 50% in coordination of care (as documented) at patient's floor/unit and/or counseling patient: - Subjective Interval history: Patient wax and waning on alertness during physical examination. Patient oriented to person only. Patient's daughter present at bedside. Denies nausea/ vomiting. Reports increased difficulty breathing and pain; however, unable to rate on scale. Clinically, patient appears poor. BUE cooler to touch. Pupils unequal and slow to react. Oxygen saturation 98% 5LNC, heart rate 106, and RR 30 during assessment. Inquired if patient would like pain medication for eased breathing and pain control; patient shook head no and immediately fell back to pillow asleep. Discussed current clinical status with patient's daughter present at bedside. Patient's daughter reports desire to keep him comfortable at this time. not present at bedside, at other daughter's house showering. Patient's daughter reports all family members will be here at approximately 2 pm. Patient's daughter requested primary RN be notified of need for pain medication to ease breathing and control pain; notified Abigail SIGALA. - Constitutional Vitals: Abnormal lab results WBC 21.8 K/mcL (4.3-11.1) H 07/16/18 05:11 RBC 3.32 M/mcL (4.19-5.50) L 07/16/18 05:11 Hgb 10.3 g/dL (12.9-16.9) L 07/16/18 05:11 Hct 32.7 % (37.5-50.1) L 07/16/18 05:11 MCHC 31.5 g/dL (31.6-35.5) L 07/16/18 05:11 RDW 15.5 % (11.5-14.5) H 07/16/18 05:11 Neutrophils # 14.9 K/mcL (1.6-8.9) H 07/16/18 05:11 Monocytes # 2.4 K/mcL (0.0-1.3) H 07/16/18 05:11 Nucleated RBCs/100 WBC 0.1 /100 WBC (0) H 07/16/18 05:11 PT 12.3 Seconds (9.4-12.1) H 07/13/18 03:29 BUN 43 mg/dL (8-23) H 07/16/18 05:11 Creatinine 1.80 mg/dL (0.70-1.30) H 07/16/18 05:11 Est GFR ( Amer) 45 (> 60) L 07/16/18 05:11 Est GFR (Non-Af Amer) 37 (> 60) L 07/16/18 05:11 Glucose 147 mg/dL (70-105) H 07/16/18 05:11 POC Glucose 164 mg/dL (70-99) H 07/15/18 12:03 Calculated Osmolality 302 (280-300) H 07/16/18 05:11 Total Bilirubin 1.3 mg/dL (0.3-1.0) H 07/16/18 05:11 AST 73 Units/L (13-39) H 07/16/18 05:11 Alkaline Phosphatase 135 Units/L (34-104) H 07/16/18 05:11 Ammonia 57 mcmol/L (16-53) H 07/15/18 04:46 Ur Specific [place] 1.008 (1.010-1.025) L 07/12/18 19:32 Ur Leukocyte Esterase Small (Negative) H 07/12/18 19:32 Urine Microscopic RBC 5-15 per hpf (0-3) H 07/12/18 19:32 Urine Microscopic WBC 5-15 per hpf (0-3) H 07/12/18 19:32 Ur Squamous Epith Cells Many per lpf (None-Few) H 07/12/18 19:32 Ur Culture Indicated? NO. (NO) A 07/12/18 19:32 General appearance: Present: disheveled, mild distress, morbidly obese - Head Head exam: Present: atraumatic, normocephalic - Eye Eye exam: Absent: normal appearance, periorbital swelling, periorbital tenderness Pupils: Present: irregular, unequal. Absent: normal accommodation - ENT ENT exam: Present: mucous membranes dry, normal external ear exam - Neck Neck exam: Present: full ROM, normal inspection - Respiratory Respiratory exam: Present: accessory muscle use, rhonchi, wheezes, tachypnea - Cardiovascular Cardiovascular exam: Present: irregular rhythm, +S1, +S2 - GI/Abdominal GI/Abdominal exam: Present: diminished bowel sounds, distended, firm, hypoactive bowel sounds (Dull to percussion), rigid. Absent: guarding, tenderness - Rectal Rectal exam: Present: deferred - Extremities Exam Extremities exam: Present: calf tenderness, pedal edema. Absent: normal inspection - Expanded Upper Extremity Exam General: Absent: normal inspection (cooler to touch than yesterday, increased bruising noted bilaterally.) - Neurological Exam Neurological exam: Present: altered. Absent: oriented X3 - Psychiatric Psychiatric exam: Present: flat affect - Skin Skin exam: Present: dry, erythema (to BLE.). Absent: intact (excoriation to buttocks.) Palliative Quality Palliative Quality: Screen for Code Status: Yes, Screen for Goals of Care: Yes, Screen for Pain: Yes, If Pain Regimen Started, Initiate Bowel Regimen: Yes, Screen for Nausea/Vomitting: Yes - Labs CBC & Chem 7: 07/16/18 05:11 07/16/18 05:11 Labs: Laboratory Results - last 24 hr 07/14/18 07/15/18 07/15/18 19:46 06:44 07:56 WBC RBC Hgb Hct MCV MCH MCHC RDW Plt Count MPV Immature Gran % Seg Neutrophils % Lymphocytes % Monocytes % Eosinophils % Basophils % Neutrophils # Lymphocytes # Monocytes # Eosinophils # Basophils # Nucleated RBCs/100 WBC Sodium Potassium Chloride Carbon Dioxide BUN Creatinine Est GFR ( Amer) Est GFR (Non-Af Amer) BUN/Creatinine Ratio Glucose POC Glucose 129 H 152 H 157 H Calculated Osmolality Calcium Total Bilirubin AST ALT Alkaline Phosphatase Serum Total Protein Albumin Globulin Albumin/Globulin Ratio 07/15/18 07/16/18 07/16/18 12:03 05:11 05:11 WBC 21.8 H RBC 3.32 L Hgb 10.3 L Hct 32.7 L MCV 98.5 MCH 31.0 MCHC 31.5 L RDW 15.5 H Plt Count 192 MPV 11.5 Immature Gran % 3.6 Seg Neutrophils % 68.5 Lymphocytes % 15.2 Monocytes % 10.9 Eosinophils % 1.2 Basophils % 0.6 Neutrophils # 14.9 H Lymphocytes # 3.3 Monocytes # 2.4 H Eosinophils # 0.3 Basophils # 0.1 Nucleated RBCs/100 WBC 0.1 H Sodium 139 Potassium 5.0 Chloride 101 Carbon Dioxide 27 BUN 43 H Creatinine 1.80 H Est GFR ( Amer) 45 L Est GFR (Non-Af Amer) 37 L BUN/Creatinine Ratio 24 Glucose 147 H POC Glucose 164 H Calculated Osmolality 302 H Calcium 9.4 Total Bilirubin 1.3 H AST 73 H ALT 12 Alkaline Phosphatase 135 H Serum Total Protein 7.1 Albumin 3.9 Globulin 3.2 Albumin/Globulin Ratio 1.2 - ABG Interpretation ABG results: PT/INR, D-dimer PT 12.3 Seconds (9.4-12.1) H 07/13/18 03:29 Consult Discharge Plan - Plan [facility]errals: [facility] [Primary Care Provider] -
[2018-07-16] MEDS: *HR* LORazepam Oral Conc 2 MG/ML SL PRN (11:55)
--- NOTE | 2018-07-16 19:00 | Internal Med Progress Note ---
Hospitalist Progress Note - Encounter Date of Encounter: 07/16/18 Time of Encounter: 11:00 - Subjective Interval History: Patient with history of metastatic liver disease with malignant ascites eroded home hospice who presented due to shortness of breath and abdominal distention found to have recurrent ascites. Patient awaiting Pleurx catheter for comfort care measures. Palliative care also following and appreciate recommendations - Exam Vitals: Temp Pulse Resp BP Pulse Ox 98.8 F 98 14 117/53 100 07/16/18 15:55 07/16/18 15:55 07/16/18 16:00 07/16/18 15:55 07/16/18 16:00 Exam: Gen.: Nonacute distress ENT: Mucosal membranes moist Respiratory: Lungs are clear to auscultation bilaterally without any wheezing rhonchi or rales Cardiovascular: Normal S1 and S2 regular rate rhythm no murmurs rubs or gallops Abdomen: Abdomen distended Extremities: No lower extremity edema Skin: Normal color - Assessment and Plan (1) Ascites Current Visit: Yes Status: Acute Assessment and Plan: Per discussion with family members, plan to place Pleurx drain for palliative paracentesis at home. Patient did have paracentesis on Sunday and about 5 L of fluid was removed. Initial peritoneal fluid analysis does not show any signs of infection. According to interventional radiology, he needs to be off it for at least 5 days. (2) Liver cancer Current Visit: Yes Status: Chronic Assessment and Plan: Overall poor prognosis. Palliative care following On lactulose to manage hepatic encephalopathy. (3) HTN (hypertension) Current Visit: Yes Status: Chronic Assessment and Plan: Blood pressure fairly controlled. We will continue to monitor patient. On Imdur. (4) Pulmonary edema Current Visit: Yes Status: Acute Assessment and Plan: Due to fluid overload with underlying hepatitis alert carcinoma and cirrhosis. On intravenous Lasix. Continues to have a significant pedal edema and chest x-ray shows worsening pulmonary edema. (5) Pneumonia Current Visit: Yes Status: Suspected Assessment and Plan: Patient has pulmonary edema per chest x-ray but also has leukocytosis and at high risk for aspiration. Will continue empiric IV Zosyn (6) Chronic kidney disease, stage II (mild) Current Visit: Yes Status: Acute Assessment and Plan: Patient appears to have underlying chronic kidney disease stage II. Creatinine 1.31. Will monitor closely as patient is receiving IV Lasix. (7) Diabetes Current Visit: Yes Status: Chronic Assessment and Plan: Blood sugars are well controlled. Continue current insulin regimen (8) DVT prophylaxis Current Visit: Yes Status: Acute Assessment and Plan: On subcutaneous heparin - Time Spent with Patient Total time spent is greater than 50% in coordination of care (as documented) at patient's floor/unit and/or counseling patient: Internal Medicine: Result - Labs CBC & Chem 7: 07/16/18 05:11 07/16/18 05:11 Labs: Short CBC 07/16/18 Range/Units 05:11 WBC 21.8 H (4.3-11.1) K/mcL Hgb 10.3 L (12.9-16.9) g/dL Hct 32.7 L (37.5-50.1) % Plt Count 192 (140-400) K/mcL Neutrophils # 14.9 H (1.6-8.9) K/mcL BMP 07/16/18 05:11 Sodium 139 Potassium 5.0 Chloride 101 Carbon Dioxide 27 BUN 43 H Creatinine 1.80 H Glucose 147 H Calcium 9.4 Liver Function 07/16/18 Range/Units 05:11 Total Bilirubin 1.3 H (0.3-1.0) mg/dL AST 73 H (13-39) Units/L ALT 12 (7-52) Units/L Alkaline Phosphatase 135 H (34-104) Units/L Albumin 3.9 (3.5-5.7) g/dL - ABG Interpretation ABG results: PT/INR, D-dimer PT 12.3 Seconds (9.4-12.1) H 07/13/18 03:29 Consult Discharge Plan - Plan [facility]errals: [facility] [Primary Care Provider] - (1) Ascites Qualifiers: Ascites type: malignant Qualified Code(s): R18.0 - Malignant ascites (2) Liver cancer Qualifiers: Liver malignancy type: hepatocellular carcinoma Qualified Code(s): C22.0 - Liver cell carcinoma (3) HTN (hypertension) Qualifiers: Hypertension type: essential hypertension Qualified Code(s): I10 - Essential (primary) hypertension (4) Pulmonary edema Qualifiers: Chronicity: acute Qualified Code(s): J81.0 - Acute pulmonary edema (5) Pneumonia Qualifiers: Pneumonia type: aspiration pneumonia Aspiration pneumonia type: unspecified Laterality: right Lung location: lower lobe of lung Qualified Code(s): J69.0 - Pneumonitis due to inhalation of food and vomit (7) Diabetes Qualifiers: Diabetes mellitus type: type 2 Diabetes mellitus retirement insulin use: with retirement use Diabetes mellitus complication status: with kidney complications Diabetes mellitus complication detail: with chronic kidney disease Chronic kidney disease stage: stage 3 (moderate) Qualified Code(s): E11.22 - Type 2 diabetes mellitus with diabetic chronic kidney disease; N18.3 - Chronic kidney disease, stage 3 (moderate); 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
[2018-07-17] MEDS: Piperacillin/Tazobactam 3.375 GM in 0.9 % Sodium Chloride Mini Bag 100 ML IVPB SCH ×4 (00:55→23:55)
[2018-07-17] MEDS: *HR* OxyCODONE Immed Rel 5 MG TABLET PO SCH ×6 (01:14→23:45)
[2018-07-17] MEDS: OXYCODONE Oral CONC 10 MG/0.5 ML ORAL.SYG SL PRN ×2 (03:56→09:28)
[2018-07-17] MEDS: Ipratropium/Albuterol Neb 3 ML IH SCH ×5 (04:07→19:48)
[2018-07-17] MEDS: *HR* Heparin 5,000 UNIT/ML VIAL SQ SCH ×3 (05:22→20:30)
[2018-07-17] MEDS: Lactulose Oral Soln 20 GM/30 ML UDC PO SCH ×3 (09:12→20:30)
[2018-07-17] MEDS: Furosemide 40 MG/4 ML VIAL IVP SCH ×2 (09:13→17:18)
[2018-07-17] MEDS: Sennosides/Docusate Sodium TABLET PO SCH ×2 (09:15→20:29)
[2018-07-17] MEDS: Multivit/Ca/Min/Fe/FA 1 TAB TABLET PO SCH (09:15)
[2018-07-17] MEDS: Isosorbide MONOnitrate (24 HR) 60 MG TAB.ER.24H PO SCH (09:15)
[2018-07-17] MEDS: Gabapentin 300 MG CAPSULE PO SCH (09:15)
[2018-07-17] MEDS: Aspirin Enteric Coated 81 MG Tablet PO SCH (09:15)
[2018-07-17] MEDS: Insulin LISPRO 300 UNITS/3 ML VIAL SQ SCH ×4 (09:16→20:24)
[2018-07-17] MEDS: Gentamicin Oint 15 GM TUBE TP SCH (09:18)
[2018-07-17] MEDS: Insulin DETEMIR 100 UNIT/ML X5UNITS SQ SCH ×2 (09:28→20:30)
[2018-07-17] MEDS: *HR* LORazepam Oral Conc 2 MG/ML SL PRN (09:29)
--- NOTE | 2018-07-17 10:34 | Palliative Progress Note ---
Date of Encounter: 07/17/18 Time of Encounter: 10:00 - Assessment and plan (1) Dyspnea Current Visit: Yes Status: Acute Assessment and plan: Patient having increased dyspnea during assessment. Has Oxycodone SL PRN, received 1 dose in the last 24 hours; Primary Nurse administered additional dose during assessment. Qualifiers: Dyspnea type: shortness of breath Qualified Code(s): R06.02 - Shortness of breath; R06.00 - Dyspnea, unspecified; R06.01 - Orthopnea (2) Anxiety Current Visit: Yes Status: Acute Assessment and plan: Patient having increased anxiety during assessment.Patient received 1 dose of PRN Ativan in the last 24 hours; continue PRN. (3) Diabetic foot ulcer Current Visit: No Status: Chronic Assessment and plan: Wound care consult appreciated. Qualifiers: Diabetic foot ulcer location: unspecified part of foot Diabetes mellitus type: type 2 Laterality: right Non-pressure ulcer stage: with necrosis of muscle Qualified Code(s): E11.621 - Type 2 diabetes mellitus with foot ulcer; L97.513 - Non-pressure chronic ulcer of other part of right foot with necrosis of muscle (4) Ascites Current Visit: Yes Status: Acute Assessment and plan: Patient having increased ascites noted. Patient ordered to have Pleurx drain placed Sunday. Qualifiers: Ascites type: malignant Qualified Code(s): R18.0 - Malignant ascites (5) Goals of care, counseling/discussion Current Visit: No Status: Acute Assessment and plan: Patient's familys current goal for Pleurx placement on Sunday and symptom control for pain and anxiety. (6) Generalized pain Current Visit: No Status: Acute Assessment and plan: Patient having pain; however, unable to rate. Patient's scheduled Roxicodone has been administered twice in the last 24 hours; held overnight due to patient sleeping. Inquired with family if they desire to have him aroused for medications, verbalized desire for patient to be aroused for pain control. Patient's family reports gives him Roxicodone 10 mg Q4H at home; desires to have schedule updated for inpatient. Patient also to have break through PRN SL Oxycodone for increased pain control. Family refuses Long acting Oxycodone and Fentanyl Patch options for increased pain control at present time for fear of being too drowsy. Spoke with [facility] Pharmacist and confirmed ability to comply with this regimen. (7) Hepatocellular carcinoma Current Visit: No Status: Chronic Assessment and plan: [facility] patient. - Time Spent With Patient Total time spent is greater than 50% in coordination of care (as documented) at patient's floor/unit and/or counseling patient: - Subjective Interval history: Patient wax and waning on alertness during physical examination. Patient oriented to person only. Patient's three daughters, son in law, and present at bedside. Family expressed concern as patient's pain is currently " out of control." Discussed current pain regimen as patient has routinely had doses held overnight for the last 2 nights for being asleep and waiting up in a copious amount of pain. Inquired whether had requested patient not be awoken for pain meds, denies. Patient's then reported she would not have wanted him to be awoken. Discussed risk of getting behind on pain regimen and difficulty to regain control. Discussed potential other options for pain control including long acting oxycodone versus patch. Family is thinking about their options; however, desires for patient to be awoken and given his Oxycodone IR every 4 hours on a schedule, as they give it in this manner at home. Notified Primary RN of family's decision to arouse patient for pain medications and requested this be relayed in nursing report. Patient unable to participate in discussion, notably more labored breathing today, tearful. Family denies complaints of nausea or vomiting. Patient having increased anxiety , family reports Ativan SL PRN is helping control anxiety. Family also reports they want patient kept comfortable; however, also desires him to be more awake to interact with them. Educated that this is a fine line and if he is awake enough to interact, potential of increased pain and agitation if not utilizing medications; verbalized understanding. Patient has received Ativan X1, Oxycodone X2 (Scheduled), and Oxycodone X1 PRN in the last 24 hours. - Constitutional Vitals: Abnormal lab results WBC 21.8 K/mcL (4.3-11.1) H 07/16/18 05:11 RBC 3.32 M/mcL (4.19-5.50) L 07/16/18 05:11 Hgb 10.3 g/dL (12.9-16.9) L 07/16/18 05:11 Hct 32.7 % (37.5-50.1) L 07/16/18 05:11 MCHC 31.5 g/dL (31.6-35.5) L 07/16/18 05:11 RDW 15.5 % (11.5-14.5) H 07/16/18 05:11 Neutrophils # 14.9 K/mcL (1.6-8.9) H 07/16/18 05:11 Monocytes # 2.4 K/mcL (0.0-1.3) H 07/16/18 05:11 Nucleated RBCs/100 WBC 0.1 /100 WBC (0) H 07/16/18 05:11 PT 12.3 Seconds (9.4-12.1) H 07/13/18 03:29 BUN 43 mg/dL (8-23) H 07/16/18 05:11 Creatinine 1.80 mg/dL (0.70-1.30) H 07/16/18 05:11 Est GFR ( Amer) 45 (> 60) L 07/16/18 05:11 Est GFR (Non-Af Amer) 37 (> 60) L 07/16/18 05:11 Glucose 147 mg/dL (70-105) H 07/16/18 05:11 POC Glucose 209 mg/dL (70-99) H 07/16/18 11:41 Calculated Osmolality 302 (280-300) H 07/16/18 05:11 Total Bilirubin 1.3 mg/dL (0.3-1.0) H 07/16/18 05:11 AST 73 Units/L (13-39) H 07/16/18 05:11 Alkaline Phosphatase 135 Units/L (34-104) H 07/16/18 05:11 Ammonia 57 mcmol/L (16-53) H 07/15/18 04:46 Ur Specific [place] 1.008 (1.010-1.025) L 07/12/18 19:32 Ur Leukocyte Esterase Small (Negative) H 07/12/18 19:32 Urine Microscopic RBC 5-15 per hpf (0-3) H 07/12/18 19:32 Urine Microscopic WBC 5-15 per hpf (0-3) H 07/12/18 19:32 Ur Squamous Epith Cells Many per lpf (None-Few) H 07/12/18 19:32 Ur Culture Indicated? NO. (NO) A 07/12/18 19:32 General appearance: Present: disheveled, mild distress, morbidly obese - Head Head exam: Present: atraumatic, normocephalic - Eye Eye exam: Present: normal appearance, conjuntiva pink Pupils: Present: unequal - ENT ENT exam: Present: mucous membranes moist, normal external ear exam - Neck Neck exam: Present: full ROM, normal inspection. Absent: tenderness - Respiratory Respiratory exam: Present: accessory muscle use, respiratory distress, rhonchi, wheezes Additional comments: Decreased lung sounds. - Cardiovascular Cardiovascular exam: Present: +S1, +S2 - GI/Abdominal GI/Abdominal exam: Present: normal bowel sounds, soft. Absent: tenderness - Rectal Rectal exam: Present: deferred - exam: Present: scrotal swelling, testicular tenderness - Extremities Exam Extremities exam: Present: calf tenderness, pedal edema. Absent: normal capillary refill, normal inspection - Back Exam Back exam: Present: full ROM, normal inspection. Absent: rash noted, tenderness - Neurological Exam Neurological exam: Present: alert, altered. Absent: oriented X3 - Psychiatric Psychiatric exam: Present: anxious - Skin Skin exam: Present: dry, warm. Absent: intact Palliative Quality Palliative Quality: Screen for Code Status: Yes, Screen for Goals of Care: Yes, Screen for Pain: Yes, If Pain Regimen Started, Initiate Bowel Regimen: Yes, Screen for Nausea/Vomitting: Yes - Labs CBC & Chem 7: 07/16/18 05:11 07/16/18 05:11 Labs: Laboratory Results - last 24 hr 07/15/18 07/15/18 07/16/18 16:00 20:50 07:50 POC Glucose 187 H 176 H 152 H 07/16/18 11:41 POC Glucose 209 H - ABG Interpretation ABG results: PT/INR, D-dimer PT 12.3 Seconds (9.4-12.1) H 07/13/18 03:29 Consult Discharge Plan - Plan [facility]errals: [facility] [Primary Care Provider] -
[2018-07-17 10:40] LABS: Basophils # 0.1 K/mcL (0.0-0.2); Basophils % 0.4 %; Eosinophils # 0.1 K/mcL (0.0-0.6); Hematocrit 31.6 % (37.5-50.1); Hemoglobin 9.8 g/dL (12.9-16.9); Immature Granulocytes % 0.4 % (0-4); Lymphocytes % 7.7 %; Mean Corpuscular Hemoglobin 30.7 pg (28.0-33.3); Mean Corpuscular Volume 99.1 fL (83.0-100.0); Mean Platelet Volume 11.2 fL (9.4-12.4); Monocytes # 1.1 K/mcL (0.0-1.3); Monocytes % 8.4 %; Platelet Count 162 K/mcL (140-400); Red Blood Count 3.19 M/mcL (4.19-5.50); Red Cell Distribution Width 15.6 % (11.5-14.5); Segmented Neutrophils % 82.1 %
[2018-07-17 11:31] LABS: Calcium 9.7 mg/dL (8.6-10.3); Potassium 4.3 mEq/L (3.5-5.1)
[2018-07-17] MEDS: Desitin (Zinc Oxide) 56 GM TUBE TP SCH ×3 (17:07→20:30)
--- NOTE | 2018-07-17 20:53 | Internal Med Progress Note ---
Hospitalist Progress Note - Encounter Date of Encounter: 07/17/18 Time of Encounter: 11:00 - Subjective Interval History: Patient with history of metastatic liver disease with malignant ascites eroded home hospice who presented due to shortness of breath and abdominal distention found to have recurrent ascites. Patient awaiting Pleurx catheter for comfort care measures. Patient's leukocytosis improving this morning on IV Zosyn for suspected aspiration pneumonia Palliative care also following and appreciate recommendations - Exam Vitals: Temp Pulse Resp BP Pulse Ox 97.4 F L 90 12 108/68 100 07/17/18 19:35 07/17/18 19:35 07/17/18 19:51 07/17/18 19:35 07/17/18 19:51 Exam: Gen.: Nonacute distress ENT: Mucosal membranes moist Respiratory: Lungs are clear to auscultation bilaterally without any wheezing rhonchi or rales Cardiovascular: Normal S1 and S2 regular rate rhythm no murmurs rubs or gallops Abdomen: Abdomen distended Extremities: No lower extremity edema Skin: Normal color - Assessment and Plan (1) Ascites Current Visit: Yes Status: Acute Assessment and Plan: Per discussion with family members, plan to place Pleurx drain for palliative paracentesis at home. Patient did have paracentesis on Sunday and about 5 L of fluid was removed. Initial peritoneal fluid analysis does not show any signs of infection. According to interventional radiology, he needs to be off it for at least 5 days. (2) Liver cancer Current Visit: Yes Status: Chronic Assessment and Plan: Overall poor prognosis. Palliative care following On lactulose to manage hepatic encephalopathy. (3) HTN (hypertension) Current Visit: Yes Status: Chronic Assessment and Plan: Blood pressure fairly controlled. We will continue to monitor patient. On Imdur. (4) Pulmonary edema Current Visit: Yes Status: Acute Assessment and Plan: Due to fluid overload with underlying hepatitis alert carcinoma and cirrhosis. On intravenous Lasix. Continues to have a significant pedal edema and chest x-ray shows worsening pulmonary edema. (5) Pneumonia Current Visit: Yes Status: Suspected Assessment and Plan: Patient has pulmonary edema per chest x-ray but also has leukocytosis and at high risk for aspiration. Leukocytosis improving and patient afebrile Will continue empiric IV Zosyn (6) Chronic kidney disease, stage II (mild) Current Visit: Yes Status: Acute Assessment and Plan: Patient appears to have underlying chronic kidney disease stage II. Creatinine 1.31. Will monitor closely as patient is receiving IV Lasix. (7) Diabetes Current Visit: Yes Status: Chronic Assessment and Plan: Blood sugars are well controlled. Continue current insulin regimen (8) DVT prophylaxis Current Visit: Yes Status: Acute Assessment and Plan: On subcutaneous heparin - Time Spent with Patient Total time spent is greater than 50% in coordination of care (as documented) at patient's floor/unit and/or counseling patient: Internal Medicine: Result - Labs CBC & Chem 7: 07/17/18 10:24 07/17/18 10:24 Labs: Short CBC 07/17/18 Range/Units 10:24 WBC 13.5 H (4.3-11.1) K/mcL Hgb 9.8 L (12.9-16.9) g/dL Hct 31.6 L (37.5-50.1) % Plt Count 162 (140-400) K/mcL Neutrophils # 11.0 H (1.6-8.9) K/mcL BMP 07/17/18 10:24 Sodium 138 Potassium 4.3 Chloride 98 Carbon Dioxide 29 BUN 51 H Creatinine 2.67 H Glucose 182 H Calcium 9.7 - ABG Interpretation ABG results: PT/INR, D-dimer PT 12.3 Seconds (9.4-12.1) H 07/13/18 03:29 Consult Discharge Plan - Plan [facility]errals: [facility] [Primary Care Provider] - (1) Ascites Qualifiers: Ascites type: malignant Qualified Code(s): R18.0 - Malignant ascites (2) Liver cancer Qualifiers: Liver malignancy type: hepatocellular carcinoma Qualified Code(s): C22.0 - Liver cell carcinoma (3) HTN (hypertension) Qualifiers: Hypertension type: essential hypertension Qualified Code(s): I10 - Essential (primary) hypertension (4) Pulmonary edema Qualifiers: Chronicity: acute Qualified Code(s): J81.0 - Acute pulmonary edema (5) Pneumonia Qualifiers: Pneumonia type: aspiration pneumonia Aspiration pneumonia type: unspecified Laterality: right Lung location: lower lobe of lung Qualified Code(s): J69.0 - Pneumonitis due to inhalation of food and vomit (7) Diabetes Qualifiers: Diabetes mellitus type: type 2 Diabetes mellitus oil heaterman insulin use: with oil heaterman use Diabetes mellitus complication status: with kidney complications Diabetes mellitus complication detail: with chronic kidney disease Chronic kidney disease stage: stage 3 (moderate) Qualified Code(s): E11.22 - Type 2 diabetes mellitus with diabetic chronic kidney disease; N18.3 - Chronic kidney disease, stage 3 (moderate); Z79.4 - penitentiary (current) use of insulin
[2018-07-18] MEDS: Ipratropium/Albuterol Neb 3 ML IH SCH ×7 (03:57→23:31)
[2018-07-18] MEDS: OXYCODONE Oral CONC 10 MG/0.5 ML ORAL.SYG SL PRN (04:14)
[2018-07-18] MEDS: *HR* OxyCODONE Immed Rel 5 MG TABLET PO SCH ×4 (04:21→15:30)
[2018-07-18] MEDS: *HR* Heparin 5,000 UNIT/ML VIAL SQ SCH ×3 (05:29→22:25)
[2018-07-18] MEDS: Insulin LISPRO 300 UNITS/3 ML VIAL SQ SCH ×4 (09:41→20:39)
[2018-07-18] MEDS: Isosorbide MONOnitrate (24 HR) 60 MG TAB.ER.24H PO SCH (10:15)
[2018-07-18] MEDS: Aspirin Enteric Coated 81 MG Tablet PO SCH (10:15)
[2018-07-18] MEDS: Gabapentin 300 MG CAPSULE PO SCH (10:18)
[2018-07-18] MEDS: Lactulose Oral Soln 20 GM/30 ML UDC PO SCH ×3 (10:18→22:29)
[2018-07-18] MEDS: Multivit/Ca/Min/Fe/FA 1 TAB TABLET PO SCH (10:19)
[2018-07-18] MEDS: Sennosides/Docusate Sodium TABLET PO SCH ×2 (10:19→22:29)
[2018-07-18] MEDS: Insulin DETEMIR 100 UNIT/ML X5UNITS SQ SCH ×2 (10:24→22:29)
[2018-07-18] MEDS: Piperacillin/Tazobactam 3.375 GM in 0.9 % Sodium Chloride Mini Bag 100 ML IVPB SCH ×2 (10:24→15:41)
[2018-07-18] MEDS: Furosemide 40 MG/4 ML VIAL IVP SCH ×2 (10:24→17:08)
[2018-07-18] MEDS ORDERED: Lactulose 200 GM, Sodium Chloride IRRigation 700 ML RC ONE (10:29)
[2018-07-18] MEDS: Desitin (Zinc Oxide) 56 GM TUBE TP SCH ×3 (11:10→22:29)
[2018-07-18] MEDS: Gentamicin Oint 15 GM TUBE TP SCH (11:10)
[2018-07-18 11:19] LABS: Basophils # 0.1 K/mcL (0.0-0.2); Basophils % 0.4 %; Eosinophils # 0.2 K/mcL (0.0-0.6); Eosinophils % 1.5 %; Hematocrit 30.4 % (37.5-50.1); Hemoglobin 9.4 g/dL (12.9-16.9); Immature Granulocytes % 0.6 % (0-4); Lymphocytes # 1.2 K/mcL (0.6-4.6); Lymphocytes % 8.8 %; Mean Corpuscular HGB Conc 30.9 g/dL (31.6-35.5); Mean Corpuscular Hemoglobin 30.1 pg (28.0-33.3); Mean Corpuscular Volume 97.4 fL (83.0-100.0); Mean Platelet Volume 11.3 fL (9.4-12.4); Monocytes # 1.2 K/mcL (0.0-1.3); Monocytes % 8.7 %; Neutrophils # 11.2 K/mcL (1.6-8.9); Platelet Count 151 K/mcL (140-400); Red Blood Count 3.12 M/mcL (4.19-5.50); Red Cell Distribution Width 15.7 % (11.5-14.5)
[2018-07-18 12:01] LABS: Calcium 9.4 mg/dL (8.6-10.3); Potassium 5.4 mEq/L (3.5-5.1)
[2018-07-18] MEDS ORDERED: OXYCODONE Oral CONC 10 MG/0.5 ML ORAL.SYG SL PRN (16:32)
--- NOTE | 2018-07-18 16:36 | Palliative Progress Note ---
Date of Encounter: 07/18/18 Time of Encounter: 16:30 - Assessment and plan (1) Generalized pain Current Visit: No Status: Acute Assessment and plan: has expressed concern over pain medication. Our team has attempted to work to please her with patient's pain control, but this has been a challenge. She is asking that his home regimen/schedule be followed here, and that the every 4 hour Oxycodone has him too sedated. We discussed that many different things could be causing the sedation including medications, decreased renal function, and increased ammonia level. I also expressed that with his mental status, he was unable to take the po tablets during the night, and has risk of aspirating if struggling with swallowing. She was agreeable to transition oral oxycodone to sublingual liquid 10 mg every 6 hours scheduled, with every 2 hour PRN dosing if needed. Will f/u iin am. (2) Anxiety Current Visit: Yes Status: Acute Assessment and plan: Continue low dose Lorazepam - has not required in over 24 hours. (3) Altered mental status Current Visit: No Status: Acute Assessment and plan: Ammonia level was elevated, renal function worse today, and no output documented since 07/16. Will get bladder scan to assess for retention. Qualifiers: Altered mental status type: unspecified Qualified Code(s): R41.82 - Altered mental status, unspecified (4) TAY (acute kidney injury) Current Visit: No Status: Acute (5) Acute hepatic encephalopathy Current Visit: No Status: Acute (6) Liver cancer Current Visit: Yes Status: Chronic Qualifiers: Liver malignancy type: hepatocellular carcinoma Qualified Code(s): C22.0 - Liver cell carcinoma (7) Goals of care, counseling/discussion Current Visit: No Status: Acute - Time Spent With Patient Total time spent is greater than 50% in coordination of care (as documented) at patient's floor/unit and/or counseling patient: 25 - 35 minutes - Subjective Interval history: Patient has been very somnolent today and difficult to arouse since receiving Oxycodone at 4am. Upon my visit, he is now awake and can answer some questions , however, still appears quite obtunded. He denies pain at this time. Does complain of some shortness of breath. Renal function continues to decline. No urine output documented since 07/16. and son at bedside. - Constitutional Vitals: Abnormal lab results WBC 14.0 K/mcL (4.3-11.1) H 07/18/18 10:20 RBC 3.12 M/mcL (4.19-5.50) L 07/18/18 10:20 Hgb 9.4 g/dL (12.9-16.9) L 07/18/18 10:20 Hct 30.4 % (37.5-50.1) L 07/18/18 10:20 MCHC 30.9 g/dL (31.6-35.5) L 07/18/18 10:20 RDW 15.7 % (11.5-14.5) H 07/18/18 10:20 Neutrophils # 11.2 K/mcL (1.6-8.9) H 07/18/18 10:20 Nucleated RBCs/100 WBC 0.1 /100 WBC (0) H 07/16/18 05:11 PT 12.3 Seconds (9.4-12.1) H 07/13/18 03:29 Potassium 5.4 mEq/L (3.5-5.1) H D 07/18/18 10:20 Chloride 96 mEq/L (98-107) L 07/18/18 10:20 BUN 60 mg/dL (8-23) H 07/18/18 10:20 Creatinine 3.59 mg/dL (0.70-1.30) H 07/18/18 10:20 Est GFR ( Amer) 20 (> 60) L 07/18/18 10:20 Est GFR (Non-Af Amer) 17 (> 60) L 07/18/18 10:20 POC Glucose 174 mg/dL (70-99) H 07/17/18 20:17 Calculated Osmolality 303 (280-300) H 07/18/18 10:20 Total Bilirubin 1.3 mg/dL (0.3-1.0) H 07/16/18 05:11 AST 73 Units/L (13-39) H 07/16/18 05:11 Alkaline Phosphatase 135 Units/L (34-104) H 07/16/18 05:11 Ammonia 98 mcmol/L (16-53) H 07/18/18 13:54 Ur Specific [place] 1.008 (1.010-1.025) L 07/12/18 19:32 Ur Leukocyte Esterase Small (Negative) H 07/12/18 19:32 Urine Microscopic RBC 5-15 per hpf (0-3) H 07/12/18 19:32 Urine Microscopic WBC 5-15 per hpf (0-3) H 07/12/18 19:32 Ur Squamous Epith Cells Many per lpf (None-Few) H 07/12/18 19:32 Ur Culture Indicated? NO. (NO) A 07/12/18 19:32 General appearance: Present: no acute distress - Respiratory Respiratory exam: Present: decreased breath sounds, CTAB - Cardiovascular Cardiovascular exam: Present: +S1, +S2 - GI/Abdominal GI/Abdominal exam: Present: diminished bowel sounds, distended, soft - Extremities Exam Additional comments: 4+ edema bilateral lower extremities. Some weeping to lower extremities - Neurological Exam Additional comments: Drowsy, oriented to name only. Can answer occasional simple questions - Skin Skin exam: Present: dry, pallor, warm Palliative Quality Palliative Quality: Screen for Code Status: Yes, Screen for Goals of Care: Yes, Screen for Pain: Yes, If Pain Regimen Started, Initiate Bowel Regimen: Yes, Screen for Nausea/Vomitting: Yes - Labs CBC & Chem 7: 07/18/18 10:20 07/18/18 10:20 Labs: Laboratory Results - last 24 hr 07/16/18 07/17/18 07/17/18 20:51 07:48 12:26 WBC RBC Hgb Hct MCV MCH MCHC RDW Plt Count MPV Immature Gran % Seg Neutrophils % Lymphocytes % Monocytes % Eosinophils % Basophils % Neutrophils # Lymphocytes # Monocytes # Eosinophils # Basophils # Sodium Potassium Chloride Carbon Dioxide BUN Creatinine Est GFR ( Amer) Est GFR (Non-Af Amer) BUN/Creatinine Ratio Glucose POC Glucose 227 H 184 H 198 H Calculated Osmolality Calcium Ammonia 07/17/18 07/17/18 07/18/18 16:54 20:17 10:20 WBC 14.0 H RBC 3.12 L Hgb 9.4 L Hct 30.4 L MCV 97.4 MCH 30.1 MCHC 30.9 L RDW 15.7 H Plt Count 151 MPV 11.3 Immature Gran % 0.6 Seg Neutrophils % 80.0 Lymphocytes % 8.8 Monocytes % 8.7 Eosinophils % 1.5 Basophils % 0.4 Neutrophils # 11.2 H Lymphocytes # 1.2 Monocytes # 1.2 Eosinophils # 0.2 Basophils # 0.1 Sodium Potassium Chloride Carbon Dioxide BUN Creatinine Est GFR ( Amer) Est GFR (Non-Af Amer) BUN/Creatinine Ratio Glucose POC Glucose 171 H 174 H Calculated Osmolality Calcium Ammonia 07/18/18 07/18/18 10:20 13:54 WBC RBC Hgb Hct MCV MCH MCHC RDW Plt Count MPV Immature Gran % Seg Neutrophils % Lymphocytes % Monocytes % Eosinophils % Basophils % Neutrophils # Lymphocytes # Monocytes # Eosinophils # Basophils # Sodium 138 Potassium 5.4 H D Chloride 96 L Carbon Dioxide 29 BUN 60 H Creatinine 3.59 H Est GFR ( Amer) 20 L Est GFR (Non-Af Amer) 17 L BUN/Creatinine Ratio 17 Glucose 102 POC Glucose Calculated Osmolality 303 H Calcium 9.4 Ammonia 98 H - ABG Interpretation ABG results: PT/INR, D-dimer PT 12.3 Seconds (9.4-12.1) H 07/13/18 03:29 Consult Discharge Plan - Plan [facility]errals: [facility] [Primary Care Provider] -
[2018-07-18] MEDS: OXYCODONE Oral CONC 10 MG/0.5 ML ORAL.SYG SL SCH (17:55)
--- NOTE | 2018-07-18 18:53 | Internal Med Progress Note ---
Hospitalist Progress Note - Encounter Date of Encounter: 07/18/18 Time of Encounter: 11:00 - Subjective Interval History: Patient with history of metastatic liver disease with malignant ascites eroded home hospice who presented due to shortness of breath and abdominal distention found to have recurrent ascites. Patient awaiting Pleurx catheter for comfort care measures. Patient's leukocytosis improving this morning on IV Zosyn for suspected aspiration pneumonia Patient with difficulty to be aroused this morning secondary to oversedation due to pain medications as Roxicodone was recently added in addition to oxycodone and Ativan - Exam Vitals: Temp Pulse Resp BP Pulse Ox 98.0 F 87 17 102/65 98 07/18/18 16:18 07/18/18 16:18 07/18/18 16:18 07/18/18 16:18 07/18/18 16:18 Exam: Gen.: Nonacute distress ENT: Mucosal membranes moist Respiratory: Lungs are clear to auscultation bilaterally without any wheezing rhonchi or rales Cardiovascular: Normal S1 and S2 regular rate rhythm no murmurs rubs or gallops Abdomen: Abdomen distended Extremities: No lower extremity edema Skin: Normal color - Assessment and Plan (1) Ascites Current Visit: Yes Status: Acute Assessment and Plan: Per discussion with family members, plan to place Pleurx drain for palliative paracentesis at home. Patient did have paracentesis on Sunday and about 5 L of fluid was removed. Initial peritoneal fluid analysis does not show any signs of infection. According to interventional radiology, he needs to be off it for at least 5 days. (2) Liver cancer Current Visit: Yes Status: Chronic Assessment and Plan: Overall poor prognosis. Palliative care following On lactulose to manage hepatic encephalopathy. (3) HTN (hypertension) Current Visit: Yes Status: Chronic Assessment and Plan: Blood pressure fairly controlled. We will continue to monitor patient. On Imdur. (4) Pulmonary edema Current Visit: Yes Status: Acute Assessment and Plan: Due to fluid overload with underlying hepatitis alert carcinoma and cirrhosis. On intravenous Lasix. Continues to have a significant pedal edema and chest x-ray shows worsening pulmonary edema. (5) Pneumonia Current Visit: Yes Status: Suspected Assessment and Plan: Patient has pulmonary edema per chest x-ray but also has leukocytosis and at high risk for aspiration. Leukocytosis improving and patient afebrile Will continue empiric IV Zosyn (6) Chronic kidney disease, stage II (mild) Current Visit: Yes Status: Acute Assessment and Plan: Patient appears to have underlying chronic kidney disease stage II. Creatinine 1.31. Will monitor closely as patient is receiving IV Lasix. (7) Diabetes Current Visit: Yes Status: Chronic Assessment and Plan: Blood sugars are well controlled. Continue current insulin regimen (8) DVT prophylaxis Current Visit: Yes Status: Acute Assessment and Plan: On subcutaneous heparin - Time Spent with Patient Total time spent is greater than 50% in coordination of care (as documented) at patient's floor/unit and/or counseling patient: Internal Medicine: Result - Labs CBC & Chem 7: 07/18/18 10:20 07/18/18 10:20 Labs: Short CBC 07/18/18 Range/Units 10:20 WBC 14.0 H (4.3-11.1) K/mcL Hgb 9.4 L (12.9-16.9) g/dL Hct 30.4 L (37.5-50.1) % Plt Count 151 (140-400) K/mcL Neutrophils # 11.2 H (1.6-8.9) K/mcL BMP 07/18/18 10:20 Sodium 138 Potassium 5.4 H D Chloride 96 L Carbon Dioxide 29 BUN 60 H Creatinine 3.59 H Glucose 102 Calcium 9.4 - ABG Interpretation ABG results: PT/INR, D-dimer PT 12.3 Seconds (9.4-12.1) H 07/13/18 03:29 Consult Discharge Plan - Plan Referrals: [facility] [Primary Care Provider] - (1) Ascites Qualifiers: Ascites type: malignant Qualified Code(s): R18.0 - Malignant ascites (2) Liver cancer Qualifiers: Liver malignancy type: hepatocellular carcinoma Qualified Code(s): C22.0 - Liver cell carcinoma (3) HTN (hypertension) Qualifiers: Hypertension type: essential hypertension Qualified Code(s): I10 - Essential (primary) hypertension (4) Pulmonary edema Qualifiers: Chronicity: acute Qualified Code(s): J81.0 - Acute pulmonary edema (5) Pneumonia Qualifiers: Pneumonia type: aspiration pneumonia Aspiration pneumonia type: unspecified Laterality: right Lung location: lower lobe of lung Qualified Code(s): J69.0 - Pneumonitis due to inhalation of food and vomit (7) Diabetes Qualifiers: Diabetes mellitus type: type 2 Diabetes mellitus fci insulin use: with termite inspector use Diabetes mellitus complication status: with kidney complications Diabetes mellitus complication detail: with chronic kidney disease Chronic kidney disease stage: stage 3 (moderate) Qualified Code(s): E11.22 - Type 2 diabetes mellitus with diabetic chronic kidney disease; N18.3 - Chronic kidney disease, stage 3 (moderate); Z79.4 - terminal gauger (current) use of insulin
[2018-07-18] MEDS: *HR* LORazepam Oral Conc 2 MG/ML SL PRN (20:30)
[2018-07-19] MEDS: Piperacillin/Tazobactam 3.375 GM in 0.9 % Sodium Chloride Mini Bag 100 ML IVPB SCH (00:08)
--- NOTE | 2018-07-19 00:13 | Event Note ---
Date of Encounter: 07/19/18 Time of Encounter: 23:37 Alerted by pts. nurse that pt. was having urinary retention and bladder scan revealed that 483 present in bladder. Crandall catheter ordered. Nurses attempted to place but met resistance and were unable to place successfully. When withdrawing, pus present on tubing. Body fluid culture ordered stat. Continue bladder scans. Custom Frame Assembler attempting to find nurse to place Crandall. Urology consult ordered in the event pt. will need Crandall placed in the a.m. but morning team needs to f/u w/Urology in a.m. if needed as consult was not confirmed. Pt. discussed w/Dr. Méndez for monitoring overnight.
[2018-07-19] MEDS: OXYCODONE Oral CONC 10 MG/0.5 ML ORAL.SYG SL SCH (01:07)
[2018-07-19] MEDS: Ipratropium/Albuterol Neb 3 ML IH SCH ×3 (03:43→11:43)
[2018-07-19 06:55] VITALS: BP 121/75
[2018-07-19] MEDS ORDERED: Piperacillin/Tazobactam 3.375 GM in 0.9 % Sodium Chloride Mini Bag 100 ML IVPB SCH (07:58)
[2018-07-19 09:02] LABS: Basophils % 0.3 %; Eosinophils # 0.2 K/mcL (0.0-0.6); Eosinophils % 1.1 %; Hemoglobin 9.1 g/dL (12.9-16.9); Immature Granulocytes % 0.4 % (0-4); Lymphocytes # 1.3 K/mcL (0.6-4.6); Lymphocytes % 8.7 %; Mean Corpuscular HGB Conc 30.3 g/dL (31.6-35.5); Mean Corpuscular Hemoglobin 29.8 pg (28.0-33.3); Mean Corpuscular Volume 98.4 fL (83.0-100.0); Mean Platelet Volume 11.4 fL (9.4-12.4); Monocytes # 1.2 K/mcL (0.0-1.3); Monocytes % 8.2 %; Platelet Count 140 K/mcL (140-400); Red Blood Count 3.05 M/mcL (4.19-5.50); Red Cell Distribution Width 15.9 % (11.5-14.5); Segmented Neutrophils % 81.3 %
[2018-07-19 09:11] LABS: Calcium 9.2 mg/dL (8.6-10.3); Potassium 5.5 mEq/L (3.5-5.1)
[2018-07-19] MEDS ORDERED: ceFAZolin 2,000 MG in Water for inj. (sterile) 20 ML 10 ML IVP ONE (10:10)
--- NOTE | 2018-07-19 10:59 | Palliative Progress Note ---
Date of Encounter: 07/19/18 Time of Encounter: 09:00 - Assessment and plan (1) Dyspnea Current Visit: Yes Status: Acute Assessment and plan: No complaints of dyspnea from family, patient did not respond to questioning. Has Oxycodone SL Scheduled 1 dose in the last 24 hours. Qualifiers: Dyspnea type: shortness of breath Qualified Code(s): R06.02 - Shortness of breath; R06.00 - Dyspnea, unspecified; R06.01 - Orthopnea (2) Anxiety Current Visit: Yes Status: Acute Assessment and plan: Patient appears slightly anxious. Family denies anxiousness noted. Patient having increased anxiety during assessment.Patient received 1 dose of PRN Ativan in the last 24 hours; continue PRN. (3) Diabetic foot ulcer Current Visit: No Status: Chronic Assessment and plan: Wound care consult appreciated. Qualifiers: Diabetic foot ulcer location: unspecified part of foot Diabetes mellitus type: type 2 Laterality: right Non-pressure ulcer stage: with necrosis of muscle Qualified Code(s): E11.621 - Type 2 diabetes mellitus with foot ulcer; L97.513 - Non-pressure chronic ulcer of other part of right foot with necrosis of muscle (4) Ascites Current Visit: Yes Status: Acute Assessment and plan: Patient having increased ascites noted. Patient ordered to have Pleurx drain placed today by IR. Qualifiers: Ascites type: malignant Qualified Code(s): R18.0 - Malignant ascites (5) Goals of care, counseling/discussion Current Visit: No Status: Acute Assessment and plan: Patient's familys current goal for Pleurx placement on today and symptom control for pain and anxiety. Plan to go home tomorrow with [facility]. Dr. Cardenas updated on plan. (6) Generalized pain Current Visit: No Status: Acute Assessment and plan: Patient having pain; however, unable to rate. Family reports pain under control , continue current pain regimen. (7) Hepatocellular carcinoma Current Visit: No Status: Chronic Assessment and plan: [facility] patient. - Time Spent With Patient Total time spent is greater than 50% in coordination of care (as documented) at patient's floor/unit and/or counseling patient: - Subjective Interval history: Patient lying in bed, not answering questions but alert during assessment. Patient does look to feature writer when spoken to. Patient's two daughters, son in law , and present at bedside. Daughter reports two large bowel movements overnight. Patient's family reports pain is currently under control. Informed family had called IR to confirm on list of pleurx placement today. Patient's family denies anxiety at this time. Urology consulted overnight for bueno placement. Patient received 1 dose of Oxycodone SL Scheduled in the last 24 hours. Informed family would follow up post procedure to ensure comfortable. - Constitutional Vitals: Abnormal lab results WBC 14.8 K/mcL (4.3-11.1) H 07/19/18 08:39 RBC 3.05 M/mcL (4.19-5.50) L 07/19/18 08:39 Hgb 9.1 g/dL (12.9-16.9) L 07/19/18 08:39 Hct 30.0 % (37.5-50.1) L 07/19/18 08:39 MCHC 30.3 g/dL (31.6-35.5) L 07/19/18 08:39 RDW 15.9 % (11.5-14.5) H 07/19/18 08:39 Neutrophils # 12.0 K/mcL (1.6-8.9) H 07/19/18 08:39 Nucleated RBCs/100 WBC 0.1 /100 WBC (0) H 07/16/18 05:11 PT 12.3 Seconds (9.4-12.1) H 07/13/18 03:29 Potassium 5.5 mEq/L (3.5-5.1) H 07/19/18 08:39 Chloride 96 mEq/L (98-107) L 07/19/18 08:39 BUN 67 mg/dL (8-23) H 07/19/18 08:39 Creatinine 4.54 mg/dL (0.70-1.30) H 07/19/18 08:39 Est GFR ( Amer) 15 (> 60) L 07/19/18 08:39 Est GFR (Non-Af Amer) 13 (> 60) L 07/19/18 08:39 Glucose 113 mg/dL (70-105) H 07/19/18 08:39 Calculated Osmolality 306 (280-300) H 07/19/18 08:39 Total Bilirubin 1.3 mg/dL (0.3-1.0) H 07/16/18 05:11 AST 73 Units/L (13-39) H 07/16/18 05:11 Alkaline Phosphatase 135 Units/L (34-104) H 07/16/18 05:11 Ammonia 98 mcmol/L (16-53) H 07/18/18 13:54 Ur Specific [place] 1.008 (1.010-1.025) L 07/12/18 19:32 Ur Leukocyte Esterase Small (Negative) H 07/12/18 19:32 Urine Microscopic RBC 5-15 per hpf (0-3) H 07/12/18 19:32 Urine Microscopic WBC 5-15 per hpf (0-3) H 07/12/18 19:32 Ur Squamous Epith Cells Many per lpf (None-Few) H 07/12/18 19:32 Ur Culture Indicated? NO. (NO) A 07/12/18 19:32 General appearance: Present: disheveled, no acute distress - Head Head exam: Present: atraumatic - Eye Eye exam: Present: conjuntiva pink Pupils: Present: unequal - ENT ENT exam: Present: mucous membranes dry, normal external ear exam - Neck Neck exam: Present: full ROM, normal inspection - Respiratory Respiratory exam: Present: accessory muscle use, decreased breath sounds, rhonchi, wheezes. Absent: chest wall tenderness, respiratory distress - Cardiovascular Cardiovascular exam: Present: +S1, +S2 - GI/Abdominal GI/Abdominal exam: Present: distended, firm, normal bowel sounds. Absent: tenderness - Rectal Rectal exam: Present: deferred - exam: Present: scrotal swelling - Extremities Exam Extremities exam: Present: pedal edema. Absent: tenderness Additional comments: Generalized edema. - Back Exam Back exam: Present: full ROM, normal inspection - Neurological Exam Neurological exam: Present: altered - Psychiatric Psychiatric exam: Present: flat affect - Skin Skin exam: Present: dry, warm. Absent: intact Palliative Quality Palliative Quality: Screen for Code Status: Yes, Screen for Goals of Care: Yes, Screen for Pain: Yes, If Pain Regimen Started, Initiate Bowel Regimen: Yes, Screen for Nausea/Vomitting: Yes - Labs CBC & Chem 7: 07/19/18 08:39 07/19/18 08:39 Labs: Laboratory Results - last 24 hr 07/18/18 07/18/18 07/18/18 07:20 10:20 10:20 WBC 14.0 H RBC 3.12 L Hgb 9.4 L Hct 30.4 L MCV 97.4 MCH 30.1 MCHC 30.9 L RDW 15.7 H Plt Count 151 MPV 11.3 Immature Gran % 0.6 Seg Neutrophils % 80.0 Lymphocytes % 8.8 Monocytes % 8.7 Eosinophils % 1.5 Basophils % 0.4 Neutrophils # 11.2 H Lymphocytes # 1.2 Monocytes # 1.2 Eosinophils # 0.2 Basophils # 0.1 Sodium 138 Potassium 5.4 H D Chloride 96 L Carbon Dioxide 29 BUN 60 H Creatinine 3.59 H Est GFR ( Amer) 20 L Est GFR (Non-Af Amer) 17 L BUN/Creatinine Ratio 17 Glucose 102 POC Glucose 117 H Calculated Osmolality 303 H Calcium 9.4 Ammonia 07/18/18 07/18/18 07/18/18 11:29 13:54 16:30 WBC RBC Hgb Hct MCV MCH MCHC RDW Plt Count MPV Immature Gran % Seg Neutrophils % Lymphocytes % Monocytes % Eosinophils % Basophils % Neutrophils # Lymphocytes # Monocytes # Eosinophils # Basophils # Sodium Potassium Chloride Carbon Dioxide BUN Creatinine Est GFR ( Amer) Est GFR (Non-Af Amer) BUN/Creatinine Ratio Glucose POC Glucose 108 H 94 Calculated Osmolality Calcium Ammonia 98 H 07/19/18 07/19/18 08:39 08:39 WBC 14.8 H RBC 3.05 L Hgb 9.1 L Hct 30.0 L MCV 98.4 MCH 29.8 MCHC 30.3 L RDW 15.9 H Plt Count 140 MPV 11.4 Immature Gran % 0.4 Seg Neutrophils % 81.3 Lymphocytes % 8.7 Monocytes % 8.2 Eosinophils % 1.1 Basophils % 0.3 Neutrophils # 12.0 H Lymphocytes # 1.3 Monocytes # 1.2 Eosinophils # 0.2 Basophils # 0.0 Sodium 138 Potassium 5.5 H Chloride 96 L Carbon Dioxide 29 BUN 67 H Creatinine 4.54 H Est GFR ( Amer) 15 L Est GFR (Non-Af Amer) 13 L BUN/Creatinine Ratio 15 Glucose 113 H POC Glucose Calculated Osmolality 306 H Calcium 9.2 Ammonia - ABG Interpretation ABG results: PT/INR, D-dimer PT 12.3 Seconds (9.4-12.1) H 07/13/18 03:29 Consult Discharge Plan - Plan Referrals: [facility] [Primary Care Provider] -
--- NOTE | 2018-07-19 11:05 | IR Progress Note ---
Vital Signs: Vital Signs/O2 Sat, Most Current Temp Pulse Resp BP Pulse Ox 97.8 F 84 18 121/75 97 07/19/18 06:51 07/19/18 06:51 07/19/18 06:51 07/19/18 06:51 07/19/18 06:51 Recent Labs: Lab Results 07/19/18 07/19/18 07/18/18 08:39 08:39 10:20 WBC 14.8 H RBC 3.05 L Hgb 9.1 L Hct 30.0 L MCV 98.4 MCH 29.8 MCHC 30.3 L RDW 15.9 H Plt Count 140 MPV 11.4 Neutrophils # 12.0 H Lymphocytes # 1.3 Monocytes # 1.2 Eosinophils # 0.2 Basophils # 0.0 Sodium 138 138 Potassium 5.5 H 5.4 H D Chloride 96 L 96 L Carbon Dioxide 29 29 BUN 67 H 60 H Creatinine 4.54 H 3.59 H Est GFR ( Amer) 15 L 20 L Est GFR (Non-Af Amer) 13 L 17 L BUN/Creatinine Ratio 15 17 Glucose 113 H 102 Calcium 9.2 9.4 07/18/18 07/17/18 07/17/18 10:20 10:24 10:24 WBC 14.0 H 13.5 H RBC 3.12 L 3.19 L Hgb 9.4 L 9.8 L Hct 30.4 L 31.6 L MCV 97.4 99.1 MCH 30.1 30.7 MCHC 30.9 L 31.0 L RDW 15.7 H 15.6 H Plt Count 151 162 MPV 11.3 11.2 Neutrophils # 11.2 H 11.0 H Lymphocytes # 1.2 1.0 Monocytes # 1.2 1.1 Eosinophils # 0.2 0.1 Basophils # 0.1 0.1 Sodium 138 Potassium 4.3 Chloride 98 Carbon Dioxide 29 BUN 51 H Creatinine 2.67 H Est GFR ( Amer) 28 L Est GFR (Non-Af Amer) 23 L BUN/Creatinine Ratio 19 Glucose 182 H Calcium 9.7 Assessment and Plan Pt with recurrent ascites referred for tunneled peritoneal catheter as he is being transferred to hospice. Survey ultrasound demonstrates minimal fluid so no indication for procedure. Will get CT scan for further evaluation given his abdominal distention.
--- NOTE | 2018-07-19 11:54 | Death Note ---
Pronouncement Note - Date and Time of Date of : 07/19/18 Time of : 10:36 - PCOD Preliminary cause of : Cardiac arrest - Summary Additional details: During patients procedure for Pleurx catheter in interventional radiology suite , patient went into cardiac arrest; he was a DNR CCA-DNI. I was called to patients bedside in the interventional radiology suite to pronounce patient . Patient was pronounced at 1037 and family was notified personally by myself. - Additional Data Confirmation of : no pulse, no respirations, no heart sounds, pupils fixed and dilated Family: at bedside Additional persons at bedside: social professionals Attending physician: Sumit Cardenas
--- NOTE | 2018-07-19 11:55 | Death Note ---
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 Apparently patient was diagnosed 2 years ago with metastatic cancer but refused treatment. During patients hospital stay IR was consulted and paracentesis was done resulting in 5 L of fluid that was removed. Recommendations that patient have Pleurx due to recurrent ascites. Patient was also treated for aspiration pneumonia during hospital stay and had leukocytosis which improved. However patient continued to decline during hospital stay as confusion did not improve much and patient was experiencing renal failure. Patient was also continued on supplemental oxygenation for hypoxic respiratory failure. Palliative care was also consulted for pain control and comfort measures. During patients procedure for Pleurx catheter in interventional radiology suite , patient went into cardiac arrest; he was a DNR CCA-DNI. I was called to patients bedside in the interventional radiology suite to pronounce patient . Patient was pronounced at 1037 and family was notified personally by myself. 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 Pt. has not voided today and bladder scan shows 483 this evening. Crandall catheter ordered but nurses unable to place d/t resistance. When Crandall tubing removed pus present on tubing. Stat cultures ordered of the body fluid. Pt. may require Crandall placement by Urology if nurses unable to place w/o causing trauma. Call Completed: No
== END 2018-07-19 10:37 | disposition expired | DRG 435 ==
LOC: 2ANU 18:15 → EMEROOARM 18:15 → SUATTDRO 21:39 → 2ANU 22:35 → SUATTDRO 07-14 19:01
PROVIDERS: ADMIT Family Medicine; ATTEND Hospitalist